=== PATIENT | male | born 1970 | race Caucasian/White ===

== ENCOUNTER 2018-09-07 09:19 | Emergency (ER) | payer BC ==
--- NOTE | 2018-09-07 11:34 | ULT ---
TESTICULAR ULTRASOUND WITH DOPPLER: HISTORY: Right testicular pain one day after climbing over a fence. Hematuria. COMPARISON: None. TECHNIQUE: Oliveira-scale, color-flow, and Doppler imaging with spectral wave-form analysis was performed of the lef t and right hemiscrotum. FINDINGS: RIGHT HEMISCROTUM: The right testicle has a homogeneous echotexture. No intratesticular masses. Th e right testicle measures 3.6 x 4 x 1.9 cm. The right epididymis has a 0.8 cm anechoic focus, compat ible with an epididymal cyst. Overall, the right epididymis measures 1 x 2.5 x 1.3 cm. The right ep ididymis does have a heterogeneous echotexture. There are increased vessels in the right inguinal re gion, which do not significantly change upon Valsalva. There is nonspecific heterogeneity involving the inferior right scrotal wall, with increased vascularity. LEFT HEMISCROTUM: The left testicle has a homogeneous echotexture. No intratesticular mass. The le ft testicle measures 2.2 x 4.2 x 3.3 cm. The left epididymis has a normal echotexture, measuring 1 x 1 x 2.6 cm. TESTICULAR DOPPLER: Vascular flow to both testicles symmetric. IMPRESSION: 1. Symmetric vascular flow to both testicles. 2. Increased vessels in the right inguinal region, which do not have increased flow upon Valsalva. 3. Heterogeneous hypervascular region along the inferior aspect of the right hemiscrotum. Correlate clinically for possible focal soft tissue infection/inflammation. 4. Complex right epididymis with epididymal cyst. POS: JANET
[2018-09-07 12:03] LABS: Bilirubin Negative (Negative); Blood, Urine Large (Negative); Clarity TURBID (Clear); Glucose, Urine (Dipstick) Negative (Negative); Leukocyte Large (Negative); Nitrite Negative (Negative); Protein, Urine (Dipstick) 100 mg/dL (Neg-Trace); Specific Gravity, Urine 1.024 (1.002-1.036)
[2018-09-07 12:17] LABS: Bacteria/HPF None Seen HPF (None Seen); Hyaline Casts/LPF 0-3 HYALINE CAST LPF (0-3 Hyaline); Pathc Cast-AUWi Flag 0.29 (0-2.49); RBC/HPF GREATER THAN 50-TNTC HPF (0-3); Squamous Epithelial None Seen HPF (0-3)
[2018-09-07] MEDS ORDERED: Lidocaine 1% PF 5 ML VIAL ONE (12:39)
[2018-09-07] MEDS ORDERED: cefTRIAXone\\ROCEPHIN 1 GM VIAL ONE (12:39)
[2018-09-07] MEDS ORDERED: Clindamycin 150 MG CAP ONE (12:45)
[2018-09-07] MEDS ORDERED: Clindamycin 150 MG CAP PO SCH (13:00)
== END 2018-09-07 13:00 | disposition home or self-care (01) ==
LOC: ERS 09:19
DX: N49.2 Inflammatory disorders of scrotum (principal); I10 Essential (primary) hypertension; F17.210 Nicotine dependence, cigarettes, uncomplicated
CPT/HCPCS: 76870; 81003; 81015; 93976; 96372; J0696; J2001

== ENCOUNTER 2020-05-16 09:22 | Emergency (ER) | payer BC, SELFPAY | END 2020-05-16 10:26 | disposition home or self-care (01) | LOC: ERS 09:22 | DX: L02.612 Cutaneous abscess of left foot (principal); L03.032 Cellulitis of left toe; B35.3 Tinea pedis; I10 Essential (primary) hypertension; F17.210 Nicotine dependence, cigarettes, uncomplicated | CPT/HCPCS: 99283 ==

== ENCOUNTER 2020-05-29 11:34 | Inpatient (IN) | payer OTHER, SELFPAY ==
--- NOTE | 2020-05-29 12:14 | RAD ---
XR Foot Lt 3 View STANDARD HISTORY: Infection of the left fifth toe. Patient is currently on the second round of antibiotics wit hout improvement FINDINGS: No fracture, dislocation, bony destruction or periosteal reaction is identified. There is a posterior calcaneal spur. If there is concern for osteomyelitis, further evaluation with MRI should be performed.
[2020-05-29 12:20] LABS: #Basophils 0.1 thou/uL (0.0-0.2); #Eosinphils 0.1 thou/uL (0.0-0.7); #Lymphocytes 1.4 thou/uL (1.20-3.40); #Monocytes 0.5 thou/uL (0.11-0.59); #Neutrophils 3.3 thou/uL (1.40-6.50); %Basophils 1.1 % (0.0-1.0); %Eosinophils 1.5 % (0.0-10.0); %Lymphocytes 26.4 % (21.0-51.0); %Monocytes 8.5 % (0.0-10.0); %Neutrophils 62.5 % (42.0-75.0); Hemoglobin 19.1 g/dL (14.0-18.0); Mean Corpuscular HGB CONC 33.5 g/dL (32.0-36.0); Mean Corpuscular Hemoglobin 34.2 pg (27.0-31.0); Mean Platelet Volume 6.7 fL (7.4-10.4); Platelet Count 188 thou/uL (130-400); RBC Distribution Width 12.5 % (11.5-14.5); Red Blood Cell (RBC) Count 5.58 mill/uL (4.70-6.10); White Blood Cell (WBC) Count 5.3 thou/uL (4.8-10.8)
[2020-05-29 12:40] LABS: ALT (SGPT) 13 U/L (8-55); AST (SGOT) 21 U/L (5-34); Albumin 4.3 g/dL (3.5-5.0); Alkaline Phosphatase 79 U/L (40-110); Anion Gap 11 mmol/L (10-20); BUN (Urea Nitrogen) 7 mg/dL (8.4-25.7); Bilirubin, Total 0.6 mg/dL (0.2-1.2); Calc. Creatinine Clearance 0 mL/min (70-130); Calcium 9.3 mg/dL (7.8-10.44); Carbon Dioxide 29 mmol/L (22-29); Chloride 100 mmol/L (98-107); Estimated GFR-MDRD Greater than 90; Globulin 3.3 g/dL (2.4-3.5); Glucose 91 mg/dL (70-105); Potassium 4.2 mmol/L (3.5-5.1); Protein, Total 7.6 g/dL (6.0-8.3); Sodium 136 mmol/L (136-145)
[2020-05-29] MEDS ORDERED: Cefepime 2 GM VIAL ONE (15:13)
[2020-05-29] MEDS ORDERED: Cefepime 2 GM in Sodium Chloride 0.9% 100 ML IVPB SCH (15:30)
[2020-05-29] MEDS ORDERED: Vancomycin HCl 1.25 GM in Sodium Chloride 0.9% 250 ML 250 ML IVPB SCH (16:00)
--- NOTE | 2020-05-29 18:15 | PDOC.HHP ---
Hospitalist HPI - History of Present Illness Left toe pain and swelling History of Present Illness: Mr. Bejarano is a 50-year-old male with a past medical history of hypertension, vitamin D deficiency, spastic muscle disorder of unknown origin who presents to the ED for left toe swelling and pain. Patient reports that approximately 1 month ago he noticed redness and swelling to his left fifth toe and presented to the emergency room. At that time I&D was performed and patient was discharged on Keflex. Patient's toe pain worsened and he presented to his PCP who added clindamycin. Patient has been taking clindamycin for the past week with a worsening of his toe infection. He denies fever, night sweats, chills. No history of diabetes. Denies history of peripheral vascular disease but does report history of bilateral foot drop and muscle spasms with neuropathy to his bilateral lower extremities. Patient has been evaluated by neurology for this chronic problem which is been ongoing for the past 10 years. Patient unsure of the etiology of his muscle disorder. Patient does endorse smoking 1 pack/day. Denies any change in his numbness or paresthesias to his bilateral lower extremities. Denies chest pain, shortness of breath, palpitations. In the emergency room initial vital signs 155/7585, 18, 98.3, 98% on room air. WBC 5.3, H/H 19.1/56.9. BUN/CR 7/0.73 x-ray of the foot showed no fracture, dislocation bony destruction or periosteal reaction. In the ED patient started on IV clindamycin, vancomycin, cefepime. Hospitalist ROS - Review of Systems Constitutional: denies: fever, chills, sweats, weakness, malaise, other Eyes: denies: pain, vision change, conjunctivae inflammation, eyelid inflammation, redness, other ENT: denies: ear pain, ear discharge, nose pain, nose discharge, nose congestion, mouth pain, mouth swelling, throat pain, throat swelling, other Respiratory: denies: cough, dry, shortness of breath, hemoptysis, SOB with excertion, pleuritic pain, sputum, wheezing, other Cardiovascular: denies: chest pain, palpitations, orthopnea, paroxysmal noc. dyspnea, edema, light headedness, other Gastrointestinal: denies: nausea, vomiting, abdominal pain, diarrhea, constipation, melena, hematochezia, other Genitourinary: denies: dysuria, frequency, incontinence, hematuria, retention, other Musculoskeletal: reports: foot pain. denies: neck pain, shoulder pain, arm pain, back pain, hand pain, leg pain, other Skin: reports: rash (Redness and erythema to left fifth toe) Neurological: reports: weakness, incoordination Other: History of muscle spasms and bilateral foot drop. Baseline neuropathy. - Medication Medications: Home medications include Losartan Vitamin D Hospitalist History - Past Medical History Other Medical History: Medical history for spastic muscle disorder, hypertension, tobacco abuse disorder, alcohol use disorder, vitamin D deficiency. - Past Surgical History Other Surgical History: No surgical history - Family History Other Family History: Denies family history of cancer, cardiac disease, diabetes. - Social History Smoking Status: Current every day smoker Tobacco Type: cigarettes Alcohol: reports: Heavy Drugs: reports: none Living Situation: With Family Activity level: independent ambulation - Exam General Appearance: NAD, awake alert Eye: PERRL, anicteric sclera ENT: normocephalic atraumatic, no oropharyngeal lesions, moist mucosa Neck: supple, symmetric, no JVD, no thyromegaly, no lymphadenopathy, no carotid bruit Heart: RRR, no murmur, no gallops, no rubs, normal peripheral pulses Respiratory: CTAB, no wheezes, no rales, no ronchi, normal chest expansion, no tachypnea, normal percussion Gastrointestinal: soft, non-tender, non-distended, normal bowel sounds, no palpable masses, no hepatomegaly, no splenomegaly, no bruit Neurological: cranial nerve grossly intact, normal sensation to touch, no new deficit Neurological - other findings: Chronic bilateral foot drop, muscle fasciculations bilaterally to lower ext Musculoskeletal - other findings: Atrophy of the bilateral lower extremity muscles Psychiatric: normal affect, normal behavior, A&O x 3 Hospitalist Results - Labs Result Diagrams: 05/30/20 06:15 05/30/20 06:15 Lab results: WBC 5.3 thou/uL (4.8-10.8) 05/29/20 12:09 Hgb 19.1 g/dL (14.0-18.0) H 05/29/20 12:09 Hct 56.9 % (42.0-52.0) H 05/29/20 12:09 MCV 102.0 fL (78.0-98.0) H 05/29/20 12:09 Plt Count 188 thou/uL (130-400) 05/29/20 12:09 Neutrophils % 62.5 % (42.0-75.0) 05/29/20 12:09 Sodium 136 mmol/L (136-145) 05/29/20 12:09 Potassium 4.2 mmol/L (3.5-5.1) 05/29/20 12:09 Chloride 100 mmol/L (98-107) 05/29/20 12:09 Carbon Dioxide 29 mmol/L (22-29) 05/29/20 12:09 BUN 7 mg/dL (8.4-25.7) L 05/29/20 12:09 Creatinine 0.73 mg/dL (0.7-1.3) 05/29/20 12:09 Glucose 91 mg/dL (70-105) 05/29/20 12:09 Calcium 9.3 mg/dL (7.8-10.44) 05/29/20 12:09 Total Bilirubin 0.6 mg/dL (0.2-1.2) 05/29/20 12:09 AST 21 U/L (5-34) 05/29/20 12:09 ALT 13 U/L (8-55) 05/29/20 12:09 Alkaline Phosphatase 79 U/L (40-110) 05/29/20 12:09 Serum Total Protein 7.6 g/dL (6.0-8.3) 05/29/20 12:09 Albumin 4.3 g/dL (3.5-5.0) 05/29/20 12:09 Hospitalist H&P A/P - Plan Plan: Mr. Bejarano is a 50-year-old male with history of spastic muscle disorder, hypertension, tobacco use disorder, alcohol use disorder who presents with left toe cellulitis which has failed outpatient antibiotic therapy. #Cellulitis Left toe cellulitis with worsening maceration between the fourth and fifth toe. WBC 5.3, afebrile. Patient does not meet sirs criteria. X-ray showed no signs of osteomyelitis. Patient denies any trauma to the area, but does have history of spastic muscle disorder likely contributing. Patient unsure of any peripheral vascular disease, minimally palpable pulses to bilateral extremities so we will obtain ABIs. -Continue IV vancomycin, cefepime, clindamycin -Blood cultures -Podiatry consult -PATRICIA #Hypertension Continue home losartan #Tobacco use disorder Tobacco cessation counseling, nicotine patch. #Alcohol use disorder Patient reports drinking 16-18 beers per day. No history of seizures or wi thdrawal symptoms. Last drink was yesterday. Will start patient on ASE protocol. -Magnesium, thiamine, vitamin B12 -ASE protocol DVT prophylaxis: Lovenox Full code
[2020-05-29] MEDS ORDERED: Ondansetron ODT 4 MG TAB PO PRN (19:21)
[2020-05-29] MEDS ORDERED: Acetaminophen 325 MG TAB PO PRN (19:21)
[2020-05-29 20:18] LABS: Syphilis Antibody Nonreactive (Nonreactive); Syphilis Antibody Index 0.04 S/CO (<1.00 Non-Reactive)
[2020-05-29] MEDS ORDERED: Morphine 2 MG/ML VIAL SLOW IVP SCH (21:15)
[2020-05-29] MEDS ORDERED: Ketorolac Tromethamine 30 MG/ML VIAL IVP SCH (21:30)
[2020-05-29] MEDS: Nicotine 14 MG PATCH TD SCH (21:32)
[2020-05-30 06:54] LABS: #Basophils 0.1 thou/uL (0.0-0.2); #Eosinphils 0.1 thou/uL (0.0-0.7); #Lymphocytes 1.2 thou/uL (1.20-3.40); #Monocytes 0.6 thou/uL (0.11-0.59); #Neutrophils 3.1 thou/uL (1.40-6.50); %Eosinophils 2.8 % (0.0-10.0); %Lymphocytes 24.4 % (21.0-51.0); %Monocytes 11.6 % (0.0-10.0); %Neutrophils 60.2 % (42.0-75.0); Mean Corpuscular HGB CONC 33.1 g/dL (32.0-36.0); Mean Corpuscular Hemoglobin 33.8 pg (27.0-31.0); Mean Platelet Volume 6.7 fL (7.4-10.4); Platelet Count 148 thou/uL (130-400); RBC Distribution Width 12.6 % (11.5-14.5); Red Blood Cell (RBC) Count 5.02 mill/uL (4.70-6.10); White Blood Cell (WBC) Count 5.1 thou/uL (4.8-10.8)
[2020-05-30 07:00] LABS: Hemoglobin A1c 5.1 % (4.0-6.0)
[2020-05-30 07:12] LABS: Anion Gap 8 mmol/L (10-20); BUN (Urea Nitrogen) 13 mg/dL (8.4-25.7); Calc. Creatinine Clearance 119 mL/min (70-130); Carbon Dioxide 30 mmol/L (22-29); Chloride 101 mmol/L (98-107); Estimated GFR-MDRD Greater than 90; Glucose 104 mg/dL (70-105); Potassium 3.9 mmol/L (3.5-5.1); Sodium 135 mmol/L (136-145)
[2020-05-30] MEDS ORDERED: Morphine 2 MG/ML VIAL SLOW IVP SCH (08:30)
[2020-05-30] MEDS ORDERED: Gabapentin 100 MG CAP PO SCH (09:00)
[2020-05-30] MEDS: Losartan 25 MG TAB PO SCH (09:06)
[2020-05-30] MEDS: Enoxaparin Sodium 40 MG/0.4 ML SYRINGE SC SCH (09:07)
--- NOTE | 2020-05-30 09:48 | PDOC.HOSPP ---
- Subjective Encounter Date: 05/30/20 Encounter Time: 09:42 Subjective: Patient reports severe pain overnight. Endorses muscle cramping/shooting pain to his left toe. Denies fever, night sweats, chills. Denies shortness of breath, chest pain, abdominal pain. Chart and medications reviewed. - Objective Vital Signs & Weight: Vital Signs (12 hours) Temp Pulse Resp BP BP Pulse Ox 05/30/20 08:03 97.5 F L 63 18 168/82 H 98 05/30/20 08:00 97.5 F L 63 18 168/82 H 98 05/30/20 07:00 97.5 F L 63 18 168/82 H 98 05/30/20 04:00 97.7 F 73 20 159/91 H 98 05/30/20 00:07 97.8 F 61 20 165/83 H 99 Weight Weight 146 lb 11.2 oz I&O: 05/29/20 05/30/20 05/31/20 06:59 06:59 06:59 Intake Total 700 Balance 700 Result Diagrams: 05/30/20 06:15 05/30/20 06:15 Hospitalist ROS - Review of Systems Constitutional: denies: fever, chills, sweats, weakness, malaise, other Eyes: denies: vision change Respiratory: denies: cough, shortness of breath Cardiovascular: denies: chest pain, palpitations, orthopnea, light headedness Gastrointestinal: denies: nausea, vomiting, abdominal pain, diarrhea, constipation, melena, hematochezia, other Musculoskeletal: reports: foot pain Skin: reports: rash Neurological: denies: weakness, numbness, incoordination, change in speech, confusion, seizures, other - Medication Medications: Active Medications Generic Name Dose Route Start Last Admin Trade Name Freq PRN Reason Stop Dose Admin Enoxaparin Sodium 40 mg 05/30/20 09:00 05/30/20 09:07 Enoxaparin Sodium 40 Mg/0.4 Ml Syringe SC 40 mg 0900 PRATEEK Administration Gabapentin 100 mg 05/30/20 09:00 05/30/20 09:06 Gabapentin 100 Mg Cap PO 100 mg DAILY PRATEEK Administration Losartan Potassium 100 mg 05/30/20 09:00 05/30/20 09:06 Losartan 25 Mg Tab PO 100 mg DAILY PRATEEK Administration Morphine Sulfate 2 mg 05/30/20 08:30 05/30/20 09:04 Morphine 2 Mg/Ml Vial SLOW IVP 05/30/20 11:00 2 mg NOW PRATEEK Administration Nicotine 14 mg 05/29/20 21:00 05/29/20 21:32 Nicotine 14 Mg Patch TD 14 mg 2100 PRATEEK Administration - Exam General Appearance: NAD, awake alert Eye: anicteric sclera ENT: normocephalic atraumatic, no oropharyngeal lesions, moist mucosa Neck: supple, symmetric, no JVD, no thyromegaly, no lymphadenopathy, no carotid bruit Heart: RRR, no murmur, no gallops, no rubs, normal peripheral pulses Respiratory: CTAB, no wheezes, no rales, no ronchi, normal chest expansion, no tachypnea, normal percussion Gastrointestinal: soft, non-tender, non-distended, normal bowel sounds, no palpable masses, no hepatomegaly, no splenomegaly, no bruit Extremities - other findings: Left toe with erythema, edema, and induration Skin - other findings: Left toe wound between fifth and fourth digits Neurological: no new deficit Musculoskeletal - other findings: Baseline lower extremity muscle atrophy Psychiatric: normal affect, normal behavior, A&O x 3 Hosp A/P - Plan Mr. Bejarano is a 50-year-old male with history of spastic muscle disorder, hypertension, tobacco use disorder, alcohol use disorder who presents with left toe cellulitis which has failed outpatient antibiotic therapy. #Cellulitis Left toe cellulitis with worsening maceration between the fourth and fifth toe. WBC 5.3, afebrile. Patient does not meet sirs criteria. X-ray showed no signs of osteomyelitis. Patient denies any trauma to the area, but does have history of spastic muscle disorder likely contributing. Patient unsure of any peripheral vascular disease, minimally palpable pulses to bilateral extremities so we will obtain ABIs. This morning cellulitis improving. Hg A1c 5.1. Since no signs of osteomyelitis and pt is not a diabetic, will deescalate abx to vancomycin only. -Continue IV vancomycin -Blood cultures pending -Podiatry consult -ABIs #Pedal ulcer Shallow, macerated ulcer in between fourth and fifth digits of the left toe. This a.m. weeping minimally. Will place gauze in between toes and obtain wound care consult. Continue antibiotics as above Wound care consult ABIs pending #Neuropathy Patient with baseline neuromuscular disorder of unknown etiology. Patient reports severe shooting pain to left toe associated with muscle cramping. Will start patient on gabapentin for pain control. Start gabapentin 300 mg twice daily #Hypertension Continue home losartan #Tobacco use disorder Tobacco cessation counseling, nicotine patch. #Alcohol use disorder Patient reports drinking 16-18 beers per day. No history of seizures or withdrawal symptoms. Last drink was yesterday. Continue ASE protocol. -Magnesium, thiamine, vitamin B12 -ASE protocol DVT prophylaxis: Lovenox Full code
[2020-05-30] MEDS ORDERED: Clindamycin/D5W 900 MG in Premix Bag 1 BAG IVPB SCH (14:00)
[2020-05-30] MEDS: Vancomycin 1 GM in Premix Bag 1 BAG IVPB SCH ×2 (15:36→22:04)
[2020-05-30] MEDS: Gabapentin 100 MG CAP PO SCH (22:04)
[2020-05-30] MEDS: Nicotine 14 MG PATCH TD SCH (22:04)
[2020-05-30] MEDS: Acetaminophen/Codeine 30-300mg Tablet PO PRN (22:10)
[2020-05-31 03:39] VITALS: BMI 19.5
[2020-05-31] MEDS: Acetaminophen/Codeine 30-300mg Tablet PO PRN ×3 (05:12→17:39)
[2020-05-31] MEDS: Vancomycin 1 GM in Premix Bag 1 BAG IVPB SCH ×3 (05:14→21:26)
--- NOTE | 2020-05-31 05:26 | CON ---
DATE OF CONSULTATION: 05/31/2020 HISTORY OF PRESENT ILLNESS: The patient is seen today in his room for painful wound to 5th digit, left foot. No apparent distress, resting well. Vital signs stable. The patient's main complaint today is an open wound that he says flared up on him in late April of this year due to possible ill-fitted shoes and tight shoe wear and hammertoe deformity. Eventually it got infected. He went to the [facility] ER on May 16, was diagnosed with cellulitis, had an incision and drainage performed to his 5th toe, left foot in the ER and placed on oral antibiotics. Further followup visits with his primary care physician on May 22 consisted of continuous rounds of oral antibiotics with on and off symptoms on the 5th digit. The patient states that several days ago the pain became intolerable and eventually he was admitted on May 29, two days ago to [facility]. PAST MEDICAL HISTORY: Significant for hypertension and peripheral neuropathy. PAST SURGICAL HISTORY: Unremarkable. SOCIAL HISTORY: Positive recreational marijuana use. Positive alcohol use. Positive tobacco use. FAMILY HISTORY: Unremarkable for diabetes. MEDICATIONS: Currently noted in chart to include: 1. IV vancomycin. 2. Oral clindamycin. ALLERGIES: NO DRUG ALLERGIES. REVIEW OF SYSTEMS: Noted in chart. PHYSICAL EXAMINATION: Lower Extremity Physical Examination: Vascular status, the patient currently has 1/4 dorsalis pedis and posterior tibial pulses bilateral feet. Capillary refill time is 3 seconds to digits one through five both feet. The 5th digit left foot shows rubor with early signs of cyanosis and purple discoloration. Positive significant pain on palpation. Rubor on dependency and pallor on elevation with absent hair growth noted bilateral lower extremities. Neurologically, epicritic sensation is intact. Paresthesia with mild burning pains exhibited on the left lower extremity distal forefoot area. MUSCULOSKELETAL: Reveals good range of motion, 5/5 muscle grading to bilateral lower extremities. The 5th digit, left foot shows signs of guarding on range of motion. Pain on palpation overall to the 5th digit, left foot. DERMATOLOGIC: An open wound approximately 0.75 cm x 1 cm in size on the medial aspect of the PIPJ, 5th digit, left foot is noted. It has a dry granular base. No azeem-marginal callus formation. No undermining. No tracking to deep bone. No purulent drainage. Surrounding tissues 5th digit left foot is erythemic, cyanotic, purple discoloration, possible mild cellulitis, edemic in nature. ASSESSMENT AND PLAN: Ulcer 5th digit, left foot. X-rays taken on the 29 of May while admitted are unremarkable at this time for any signs of osteomyelitis; however, there is concern at this time for possible underlying osteomyelitis. I went ahead and ordered an MRI with and without contrast to rule out osteomyelitis, 5th digit, left foot. The patient is currently on IV vancomycin, oral clindamycin, and has had a cefepime injection 2 g on the 29 of May. The patient currently maintains the soap and warm water. Rejects any type of wound care at this time per hospital staff. My concerns are more orientated towards his vascular status on the left foot, distal forefoot area. ABIs, arterial ultrasound ordered on the 30 of May show a low index at the ankle level and digit level on the left versus the right concerns for possible vascular underlying disease. With clinical examination at this time, I recommend a vascular consultation for further possible workup on the left lower extremity while in-house. The patient and I discussed possible MRI results including his positive osteomyelitis, a 5th digit amputation, left foot is indicated. I will follow up with the patient to discuss MRI results. If you have any questions, please call me at [phone]. Job ID: [id number]
[2020-05-31] MEDS ORDERED: Sodium Chloride 0.9% 1,000 ML IV SCH ×2 (07:30)
--- NOTE | 2020-05-31 08:01 | CON ---
DATE OF CONSULTATION: HISTORY OF PRESENT ILLNESS: This is a 50-year-old gentleman with a little over 2-week history of a rather sudden onset of pain in his left 5th toe. He has a history of chronic foot drop, which is hereditary, but he awakened one morning with pain in his toe and this has persisted. He was seen by Podiatry yesterday. His cardiovascular risk factors include a longstanding smoking history as well as hypertension. HOME MEDICATIONS: Include: 1. Losartan. 2. Vitamin D. SOCIAL HISTORY: He lives with his family. He uses some marijuana. He drinks regularly. PHYSICAL EXAMINATION: GENERAL: He is a thin gentleman, in no apparent distress. Talking on the phone. LUNGS: Clear to auscultation. CARDIAC: Regular rate and rhythm. ABDOMEN: Scaphoid, nontender. EXTREMITIES: He has palpable femoral pulses bilaterally as well as a right posterior tibial and right popliteal. He has no left popliteal or pedal pulses. He has 5th toe rides over the top of the 4th toe and there are some gangrenous changes on the medial aspect of his 5th toe. There is not much discoloration in the toe otherwise to suggest an embolic event. The patient states the pain is worse when he is in bed and less so when he is up suggesting vascular insufficiency. Whether this is an embolic event or not is unclear, but we will go ahead and plan on a CT angiogram today and possible angios with intervention. We will start some IV fluids for hydration. His creatinine is normal as hemoglobin is elevated, it is 17. Platelet count is 148. I have gone over the situation with the patient and he is agreeable to proceed with angiography and interventions as needed. Job ID: [id number]
[2020-05-31] MEDS: Gabapentin 100 MG CAP PO SCH ×2 (08:36→21:26)
[2020-05-31] MEDS: Aspirin 81 mg Enteric Coated Tablet PO SCH (08:36)
[2020-05-31] MEDS: Diazepam 5 MG TAB PO SCH ×2 (08:36→21:26)
[2020-05-31] MEDS ORDERED: Morphine 2 MG/ML VIAL SLOW IVP PRN (08:41)
[2020-05-31] MEDS ORDERED: Clopidogrel Bisulfate 75 MG TAB PO SCH (09:00)
[2020-05-31] MEDS: Losartan 25 MG TAB PO SCH (10:15)
[2020-05-31] MEDS: Enoxaparin Sodium 40 MG/0.4 ML SYRINGE SC SCH (10:15)
--- NOTE | 2020-05-31 10:27 | CT ---
CTA ABDOMEN AND PELVIS AND BILATERAL LOWER EXTREMITIES FOLLOWING A RUNOFF PROTOCOL: Multiplanar reconstruction and 3D post processing obtained. INDICATION: Left foot ischemia. FINDINGS: The abdominal aorta shows atherosclerotic change with peripheral calcification and a mild amount of p eripheral soft plaque. Mild ectasia without aneurysm. Distal abdominal aorta diameter is measured a t 1.9 cm. There is no stenosis seen at the origin of the celiac artery or superior mesenteric artery. Both renal arteries are well seen and there is no evidence of renal artery stenosis. Aortic bifurcation is patent. Both common iliac arteries are patent without significant atherosclero tic disease. LEFT LOWER EXTREMITY: Left internal and external iliacs are patent and unremarkable. The left common femoral shows mild at herosclerotic change, but no stenosis. Profunda femoral is patent. There is occlusion of the proximal left superficial femoral artery just beyond its origin. A collate ral vessel arises at this location. The left superficial femoral artery reconstitutes distally near Lavon's canal via collaterals. The left popliteal is patent without significant stenosis. The left popliteal trifurcates below the knee and there is 3-vessel runoff seen to the left ankle. RIGHT LOWER EXTREMITY: The right internal and external iliacs are patent and unremarkable. The right common femoral is goodman nt and unremarkable with mild atherosclerotic disease. The profunda femoral is patent. The right superficial femoral artery is patent throughout its course without significant disease. Th e right popliteal is patent and unremarkable. Right popliteal trifurcates below the knee. The perin eal artery and the anterior tibial artery on the right are not visualized at the ankle and may occlud e distally. The percutaneous transluminal angioplasty on the right is identified to the ankle. SOFT TISSUES: Visualized liver, spleen, pancreas, adrenal glands, and kidneys unremarkable. Bowel loops unremarkab le. Osseous structures show degenerative changes in the spine. There is fusion at T12-L1 vertebrae which may be congenital. 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 This artery reconstitutes i n the distal left thigh near Lavon's canal as described above. In the right lower extremity, the perineal artery, and anterior tibial artery are not visualized to t he distal calf are not seen at the ankle and may occlude distally, although poor visualization may be due to over-running contrast on the CT. Catheter angiogram would be necessary to assess these small peripheral vessels. POS: AH
--- NOTE | 2020-05-31 10:41 | MRI ---
MRI LEFT FOREFOOT: DATE: . PROVIDED CLINICAL HISTORY: Infection of left 5th toe. FINDINGS: Correlation is made with radiographs dated 05/29/2020. There is signal alteration on fluid sensitive sequences involving the 5th digit proximal and distal p halanges. There is no significant T1 signal alteration. There is associated contrast enhancement. Regional marrow signal appears otherwise unremarkable. There is no evidence for a focal fluid collec tion to suggest abscess. Regional muscular signal appears unremarkable. Alignment appears anatomic. Joint spaces appear pres erved. No regional joint effusion is evident. The dorsal extensor and plantar flexor tendons appear intact as visualized. There is no significant regional tenosynovial fluid. IMPRESSION: Signal alteration involving the 5th digit, which could reflect reactive osteitis or early osteomyelit is. POS: EMILY
[2020-05-31 12:45] LABS: SARS-CoV-2 MS2 Positive; SARS-CoV-2 N Gene Negative; SARS-CoV-2 S Gene Negative; SARS-CoV-2 by NAA Not Detected (NotDetected); SARS-CoV-2 orf1ab Negative
--- NOTE | 2020-05-31 12:48 | PDOC.HOSPP ---
- Subjective Encounter Date: 05/31/20 Encounter Time: 08:00 Subjective: No overnight events. Patient endorses pain to the left fifth digit. Denies chest pain, shortness of breath, abdominal pain. Denies numbness or paresthesias to bilateral lower extremities. Treat medications reviewed. - Objective Vital Signs & Weight: Vital Signs (12 hours) Temp Pulse Resp BP Pulse Ox 05/31/20 11:42 98.1 F 67 16 147/78 H 98 05/31/20 08:00 97.9 F 97 90 H 137/75 100 Weight Weight 147 lb I&O: 05/30/20 05/31/20 06/01/20 06:59 06:59 06:59 Intake Total 700 1400 Balance 700 1400 Result Diagrams: 05/30/20 06:15 05/30/20 06:15 Hospitalist ROS - Review of Systems Constitutional: denies: fever, chills, sweats, weakness, malaise, other Eyes: denies: vision change Respiratory: denies: cough, dry, shortness of breath Cardiovascular: denies: chest pain, palpitations, light headedness Gastrointestinal: denies: nausea, vomiting, abdominal pain Genitourinary: denies: dysuria Skin: reports: rash Neurological: denies: weakness, numbness - Medication Medications: Active Medications Generic Name Dose Route Start Last Admin Trade Name Freq PRN Reason Stop Dose Admin Acetaminophen/Codeine Phosphate 1 tab 05/29/20 21:07 05/31/20 05:12 Acetaminophen/Codeine 30-300mg Tablet PO 1 tab Q4HR PRN Administration Severe Pain (7-10) Aspirin 81 mg 05/31/20 09:00 05/31/20 08:36 Aspirin 81 Mg Enteric Coated Tablet PO 81 mg DAILY PRATEEK Administration Clopidogrel Bisulfate 75 mg 05/31/20 09:00 05/31/20 10:15 Clopidogrel Bisulfate 75 Mg Tab PO Not Given DAILY PRATEEK Diazepam 5 mg 05/31/20 09:00 05/31/20 08:36 Diazepam 5 Mg Tab PO 5 mg BID PRATEEK Administration Enoxaparin Sodium 40 mg 05/30/20 09:00 05/31/20 10:15 Enoxaparin Sodium 40 Mg/0.4 Ml Syringe SC Not Given 0900 PRATEEK Gabapentin 100 mg 05/30/20 21:00 05/31/20 08:36 Gabapentin 100 Mg Cap PO 100 mg BID PRATEEK Administration Vancomycin HCl 1 gm/ Device 200 mls @ 200 mls/hr 05/30/20 13:00 05/31/20 05:14 IVPB 200 mls 0500,1300,2100 PRATEEK Administration Sodium Chloride 1,000 mls @ 150 mls/hr 05/31/20 07:30 05/31/20 10:14 Normal Saline 0.9% IV 1,000 mls .Q6H40M PRATEEK Administration Losartan Potassium 100 mg 05/30/20 09:00 05/31/20 10:15 Losartan 25 Mg Tab PO 100 mg DAILY PRATEEK Administration Nicotine 14 mg 05/29/20 21:00 05/30/20 22:04 Nicotine 14 Mg Patch TD 14 mg 2100 PRATEEK Administration - Exam General Appearance: NAD, awake alert Eye: anicteric sclera ENT: normocephalic atraumatic, no oropharyngeal lesions Neck: supple, symmetric, no JVD, no thyromegaly, no lymphadenopathy, no carotid bruit Heart: RRR, no murmur, no gallops, no rubs, normal peripheral pulses Respiratory: CTAB, no wheezes, no rales, no ronchi, normal chest expansion, no tachypnea, normal percussion Gastrointestinal: soft, non-tender, non-distended, normal bowel sounds, no palpable masses, no hepatomegaly, no splenomegaly, no bruit Skin - other findings: Erythema and edema to left fifth digit Neurological: normal sensation to touch, no weakness, no focal deficits, no new deficit Musculoskeletal - other findings: Bilateral lower extremity muscle atrophy she is Psychiatric: normal affect, normal behavior, A&O x 3 Hosp A/P - Plan Mr. Bejarano is a 50-year-old male with history of spastic muscle disorder, hypertension, tobacco use disorder, alcohol use disorder who presents with left toe cellulitis which has failed outpatient antibiotic therapy. #Cellulitis Left toe cellulitis with worsening maceration between the fourth and fifth toe. WBC 5.3, afebrile. Patient does not meet sirs criteria. X-ray showed no signs of osteomyelitis. Patient denies any trauma to the area, but does have history of spastic muscle disorder likely contributing. Patient unsure of any peripheral vascular disease, minimally palpable pulses to bilateral extremities so we will obtain ABIs. This morning cellulitis improving. Hg A1c 5.1. Continued on vancomycin IV. Podiatry recommended pursuing MRI of the left foot to rule out osteomyelitis. -Continue IV vancomycin -Blood cultures no growth to date -Podiatry consult, recs appreciated #Peripheral vascular disease ABIs show decreased blood flow to the left lower extremity. Vascular surgery consulted who recommended CTA and possible angiogram. CTA Vascular surgery following, recommendations appreciated Start aspirin, Plavix #Pedal ulcer Shallow, macerated ulcer in between fourth and fifth digits of the left toe. This a.m. weeping minimally. Will place gauze in between toes and obtain wound care consult. Continue antibiotics as above Patient refusing wound care PVD treatment as above #Neuropathy Patient with baseline neuromuscular disorder of unknown etiology. Patient reports severe shooting pain to left toe associated with muscle cramping. Will start patient on gabapentin for pain control. Start gabapentin 300 mg twice daily -Start tizanidine Neurology consult #Hypertension Continue home losartan #Tobacco use disorder Tobacco cessation counseling, nicotine patch. #Alcohol use disorder Patient reports drinking 16-18 beers per day. No history of seizures or withdrawal symptoms. Last drink was day prior to admission, continue ASE protocol. -Magnesium, thiamine, vitamin B12 -ASE protocol DVT prophylaxis: Lovenox Full code
[2020-05-31] MEDS ORDERED: Iopamidol-370 76% 500 ML 1 ML ONE (14:38)
[2020-05-31] MEDS ORDERED: Magnevist 469MG/ML 20 ML VIAL ONE (14:48)
[2020-05-31] MEDS: Nicotine 14 MG PATCH TD SCH (16:17)
[2020-05-31] MEDS: tiZANidine HCl 4 MG TAB PO SCH (21:26)
[2020-06-01] MEDS: Acetaminophen/Codeine 30-300mg Tablet PO PRN ×3 (01:12→12:02)
[2020-06-01] MEDS: Vancomycin 1 GM in Premix Bag 1 BAG IVPB SCH ×3 (05:03→20:05)
[2020-06-01] MEDS: Enoxaparin Sodium 40 MG/0.4 ML SYRINGE SC SCH (07:39)
[2020-06-01] MEDS: tiZANidine HCl 4 MG TAB PO SCH ×2 (07:39→20:04)
[2020-06-01] MEDS: Aspirin 81 mg Enteric Coated Tablet PO SCH (07:40)
[2020-06-01] MEDS: Losartan 25 MG TAB PO SCH (07:41)
[2020-06-01] MEDS: Diazepam 5 MG TAB PO SCH ×2 (07:41→20:04)
[2020-06-01] MEDS: Gabapentin 100 MG CAP PO SCH ×2 (07:41→20:04)
[2020-06-01 08:42] LABS: #Eosinphils 0.2 thou/uL (0.0-0.7); #Lymphocytes 1.3 thou/uL (1.20-3.40); #Monocytes 0.4 thou/uL (0.11-0.59); #Neutrophils 1.9 thou/uL (1.40-6.50); %Basophils 1.1 % (0.0-1.0); %Eosinophils 4.5 % (0.0-10.0); %Lymphocytes 33.5 % (21.0-51.0); %Monocytes 11.1 % (0.0-10.0); %Neutrophils 49.9 % (42.0-75.0); Hemoglobin 16.4 g/dL (14.0-18.0); Mean Corpuscular HGB CONC 32.8 g/dL (32.0-36.0); Mean Corpuscular Hemoglobin 33.7 pg (27.0-31.0); Mean Platelet Volume 6.4 fL (7.4-10.4); Platelet Count 156 thou/uL (130-400); RBC Distribution Width 12.4 % (11.5-14.5); Red Blood Cell (RBC) Count 4.88 mill/uL (4.70-6.10); White Blood Cell (WBC) Count 3.9 thou/uL (4.8-10.8)
[2020-06-01 09:31] LABS: Anion Gap 10 mmol/L (10-20); BUN (Urea Nitrogen) 9 mg/dL (8.4-25.7); Calc. Creatinine Clearance 125 mL/min (70-130); Calcium 8.7 mg/dL (7.8-10.44); Carbon Dioxide 28 mmol/L (22-29); Chloride 102 mmol/L (98-107); Estimated GFR-MDRD Greater than 90; Glucose 95 mg/dL (70-105); Sodium 136 mmol/L (136-145)
[2020-06-01] MEDS ORDERED: Glycopyrrolate 0.2 MG/ML 5 ML SYRINGE ONE (11:55)
[2020-06-01] MEDS ORDERED: PHENYLEPHRINE-NS 100 MCG/ML 10 ML SYRINGE ONE (11:55)
[2020-06-01] MEDS ORDERED: Rocuronium Bromide 10 MG/ML (10ML VIAL) ONE (11:55)
[2020-06-01] MEDS ORDERED: Lidocaine 1% PF 5 ML VIAL ONE (11:55)
[2020-06-01] MEDS ORDERED: PROPOFOL 200 MG/20 ML VIAL ONE (11:55)
[2020-06-01] MEDS ORDERED: Dexamethasone 20 MG/5 ML VIAL ONE (11:55)
[2020-06-01] MEDS ORDERED: EPHEDRINE 25 MG/5 ML SYRINGE ONE (11:55)
--- NOTE | 2020-06-01 11:55 | PDOC.HOSPP ---
- Subjective Encounter Date: 06/01/20 Encounter Time: 09:00 Subjective: No overnight events. Patient reports the tizanidine has helped significantly with his muscle spasms. Still endorses pain to the left toe. Denies numbness, worsening paresthesias, worsening weakness to the left leg. Denies chest pain, shortness of breath, palpitations. Denies fever night sweats chills. Chart and medications reviewed. - Objective Vital Signs & Weight: Vital Signs (12 hours) Temp Pulse Resp BP Pulse Ox 06/01/20 08:00 98 06/01/20 07:49 98.0 F 57 L 16 133/76 98 06/01/20 04:27 98 Weight Weight 147 lb I&O: 05/31/20 06/01/20 06/02/20 06:59 06:59 06:59 Intake Total 1400 2550 Balance 1400 2550 Result Diagrams: 06/01/20 08:24 06/01/20 08:24 Hospitalist ROS - Review of Systems Constitutional: denies: fever, chills, sweats, weakness, malaise, other Eyes: denies: vision change ENT: denies: throat pain, throat swelling Respiratory: denies: cough, shortness of breath Cardiovascular: denies: chest pain, palpitations Gastrointestinal: denies: nausea, vomiting, abdominal pain, diarrhea, constipation, melena, hematochezia, other Genitourinary: denies: dysuria Musculoskeletal: reports: foot pain Skin: reports: rash Neurological: denies: weakness, numbness, incoordination, change in speech, confusion, seizures, other - Medication Medications: Active Medications Generic Name Dose Route Start Last Admin Trade Name Thomasq PRN Reason Stop Dose Admin Acetaminophen/Codeine Phosphate 1 tab 05/29/20 21:07 06/01/20 05:05 Acetaminophen/Codeine 30-300mg Tablet PO 1 tab Q4HR PRN Administration Severe Pain (7-10) Aspirin 81 mg 05/31/20 09:00 06/01/20 07:40 Aspirin 81 Mg Enteric Coated Tablet PO 81 mg DAILY PRATEEK Administration Diazepam 5 mg 05/31/20 09:00 06/01/20 07:41 Diazepam 5 Mg Tab PO 5 mg BID PRATEEK Administration Enoxaparin Sodium 40 mg 05/30/20 09:00 06/01/20 07:39 Enoxaparin Sodium 40 Mg/0.4 Ml Syringe SC 40 mg 0900 PRATEEK Administration Gabapentin 100 mg 05/30/20 21:00 06/01/20 07:41 Gabapentin 100 Mg Cap PO 100 mg BID PRATEEK Administration Vancomycin HCl 1 gm/ Device 200 mls @ 200 mls/hr 05/30/20 13:00 06/01/20 05:03 IVPB 200 mls 0500,1300,2100 PRATEEK Administration Losartan Potassium 100 mg 05/30/20 09:00 06/01/20 07:41 Losartan 25 Mg Tab PO 100 mg DAILY PRATEEK Administration Morphine Sulfate 2 mg 05/31/20 08:41 06/01/20 07:38 Morphine 2 Mg/Ml Vial SLOW IVP 2 mg Q4H PRN Administration Severe Pain (7-10) Nicotine 14 mg 05/29/20 21:00 05/31/20 16:17 Nicotine 14 Mg Patch TD 14 mg 2100 PRATEEK Administration Tizanidine HCl 2 mg 05/31/20 21:00 06/01/20 07:39 Tizanidine Hcl 4 Mg Tab PO 2 mg BID PRATEEK Administration - Exam General Appearance: NAD, awake alert Eye: anicteric sclera ENT: normocephalic atraumatic, no oropharyngeal lesions Neck: supple, symmetric, no JVD, no thyromegaly, no lymphadenopathy, no carotid bruit Heart: RRR, no murmur, no gallops, no rubs, normal peripheral pulses Respiratory: CTAB, no wheezes, no rales, no ronchi, normal chest expansion, no tachypnea, normal percussion Gastrointestinal: soft, non-tender, non-distended, normal bowel sounds, no palpable masses, no hepatomegaly, no splenomegaly, no bruit Extremities - other findings: Improving cellulitis to left lower toe. Skin: normal turgor, no lesions, no rashes Neurological: normal sensation to touch, no focal deficits, no new deficit Musculoskeletal: normal tone Psychiatric: normal affect, normal behavior, A&O x 3 Hosp A/P - Plan Mr. Bejarano is a 50-year-old male with history of spastic muscle disorder, hypertension, tobacco use disorder, alcohol use disorder who presents with left toe cellulitis which has failed outpatient antibiotic therapy. #Osteomyelitis Left toe cellulitis with worsening maceration between the fourth and fifth toe. WBC 5.3, afebrile. Patient does not meet sirs criteria. X-ray showed no signs of osteomyelitis. Patient denies any trauma to the area, but does have history of spastic muscle disorder. ABIs showed decreased blood flow to left lower extremity. CT angiogram showed blockages to left superficial femoral artery. Dr. Clemens of cardiovascular surgery will take patient for angiogram today. MRI of the foot showed signal alteration involving the fifth digit which could reflect reactive osteitis or possibly early osteomyelitis. Podiatry with plans to surgically debride the toe after blood flow is restored. -Continue IV vancomycin -Podiatry following, recs appreciated Angiogram today Vascular surgery following, recs appreciated #Peripheral vascular disease ABIs show decreased blood flow to the left lower extremity. CT aorta with runoff showed occlusion of the left superficial femoral artery just been its origin which reconstitutes in the distal left thigh. Patient going for angiogram this afternoon with Dr. Clemens. -Vascular surgery following Angiogram Start aspirin, Plavix #Pedal ulcer Shallow, macerated ulcer in between fourth and fifth digits of the left toe. T his a.m. weeping minimally. Will place gauze in between toes and obtain wound care consult. Continue antibiotics as above Patient refusing wound care PVD treatment as above -podiatry following #Neuropathy Patient with baseline neuromuscular disorder of unknown etiology. Patient reports severe shooting pain to left toe associated with muscle cramping. Will start patient on gabapentin for pain control. Start gabapentin 300 mg twice daily -Start tizanidine #Hypertension Continue home losartan #Tobacco use disorder Tobacco cessation counseling, nicotine patch. #Alcohol use disorder Patient reports drinking 16-18 beers per day. No history of seizures or withdrawal symptoms. Last drink was day prior to admission, continue ASE protocol. -Magnesium, thiamine, vitamin B12 -ASE protocol DVT prophylaxis: Lovenox Full code
[2020-06-01 12:10] LABS: Vancomycin, Trough 20.9 ug/mL
--- NOTE | 2020-06-01 13:53 | PFT ---
DATE OF SERVICE: STUDY: Lower extremity arterial study on Krishan Bejarano for complaints of pain in the left leg. Examination of the right leg reveals normal Doppler waveforms at all levels with an ankle-arm index of 1.25. Left lower extremity demonstrates a slightly abnormal, but relatively preserved waveform at the left femoral level and then decreased waveforms distally with an ankle-arm index of 0.67. This study would be consistent with left superficial femoral artery stenosis or occlusion, possible tibial disease above that level and would be consistent with a history of claudication. Job ID: [id number]
[2020-06-01] MEDS ORDERED: Phenylephrine 10 MG/ML VIAL ONE (14:10)
[2020-06-01] MEDS ORDERED: Fentanyl 100 MCG/2 ML VIAL ONE ×3 (14:10→17:09)
[2020-06-01] MEDS ORDERED: Protamine Sulfate 50 MG/5 ML VIAL ONE (14:48)
[2020-06-01] MEDS ORDERED: Heparin 5,000 UNITS/ML VIAL ONE (14:48)
[2020-06-01] MEDS ORDERED: Promethazine HCl 25 MG/ML VIAL SLOW IVP PRN (15:21)
[2020-06-01] MEDS ORDERED: Ondansetron HCl/PF 4 MG/2 ML Vial IVP PRN (15:21)
[2020-06-01] MEDS ORDERED: HYDROcodone/Acetaminophen 5/325 mg Tablet ONE (17:32)
[2020-06-01] MEDS: HYDROcodone/Acetaminophen 5/325 mg Tablet PO PRN (17:40)
[2020-06-01] MEDS: CEFAZOLIN 2 GM in Premix Bag 1 BAG IVPB SCH (18:22)
[2020-06-01] MEDS: Nicotine 14 MG PATCH TD SCH (20:05)
[2020-06-01] MEDS: Fentanyl 100 MCG/2 ML VIAL SLOW IVP PRN (20:05)
[2020-06-02] MEDS: HYDROcodone/Acetaminophen 5/325 mg Tablet PO PRN ×4 (00:20→22:30)
[2020-06-02] MEDS: CEFAZOLIN 2 GM in Premix Bag 1 BAG IVPB SCH ×3 (01:39→16:44)
[2020-06-02] MEDS: Acetaminophen/Codeine 30-300mg Tablet PO PRN (03:27)
[2020-06-02] MEDS: Vancomycin 1 GM in Premix Bag 1 BAG IVPB SCH ×3 (05:06→22:31)
--- NOTE | 2020-06-02 06:45 | PRG ---
DATE OF SERVICE: 06/02/2020 The patient states he has not slept since 01:30 this morning, but it is not clear if it is for any particular reason. He denies toe pain this morning. His vital signs have been stable. His lungs are clear, but he does have a slightly raspy voice this morning. His leg incisions are clean and dry with some mild edema around his knee and no peripheral edema. He has a palpable dorsalis pedis pulse. Begin physical therapy today and home when ambulatory. We will order some Cepastat lozenges for his throat complaints. As mentioned, the patient should be able to go home in the next day or two if he is able to get in and out of his wheelchair and walk to the bathroom. Job ID: [id number]
[2020-06-02] MEDS: Cepastat Lozenges 1 LOZ PO PRN (07:41)
[2020-06-02 07:54] LABS: #Basophils 0.1 thou/uL (0.0-0.2); #Eosinphils 0.1 thou/uL (0.0-0.7); #Lymphocytes 1.4 thou/uL (1.20-3.40); #Monocytes 0.7 thou/uL (0.11-0.59); #Neutrophils 5.7 thou/uL (1.40-6.50); %Basophils 0.7 % (0.0-1.0); %Eosinophils 0.7 % (0.0-10.0); %Lymphocytes 17.3 % (21.0-51.0); %Monocytes 8.3 % (0.0-10.0); Hemoglobin 14.9 g/dL (14.0-18.0); Mean Corpuscular HGB CONC 33.6 g/dL (32.0-36.0); Mean Corpuscular Hemoglobin 34.5 pg (27.0-31.0); Mean Platelet Volume 6.7 fL (7.4-10.4); Platelet Count 156 thou/uL (130-400); RBC Distribution Width 12.2 % (11.5-14.5); Red Blood Cell (RBC) Count 4.32 mill/uL (4.70-6.10); White Blood Cell (WBC) Count 7.9 thou/uL (4.8-10.8)
[2020-06-02 08:13] LABS: Anion Gap 11 mmol/L (10-20); BUN (Urea Nitrogen) 12 mg/dL (8.4-25.7); Calc. Creatinine Clearance 106 mL/min (70-130); Calcium 8.1 mg/dL (7.8-10.44); Carbon Dioxide 27 mmol/L (22-29); Chloride 101 mmol/L (98-107); Estimated GFR-MDRD Greater than 90; Glucose 142 mg/dL (70-105); Sodium 135 mmol/L (136-145)
[2020-06-02] MEDS: Gabapentin 100 MG CAP PO SCH ×2 (09:12→19:59)
[2020-06-02] MEDS: Diazepam 5 MG TAB PO SCH (09:12)
[2020-06-02] MEDS: Losartan 25 MG TAB PO SCH (09:12)
[2020-06-02] MEDS: Enoxaparin Sodium 40 MG/0.4 ML SYRINGE SC SCH (09:12)
[2020-06-02] MEDS: Aspirin 81 mg Enteric Coated Tablet PO SCH (09:12)
--- NOTE | 2020-06-02 10:02 | PDOC.HOSPP ---
- Subjective Encounter Date: 06/02/20 Encounter Time: 09:00 Subjective: No overnight events. Patient now postop day 1 status post femoropopliteal bypass. Patient currently denies chest pain, shortness of breath, palpitations. He reports that his muscle spasms are much improved, and that the pain to his left lower extremity is improved. He denies any new numbness, paresthesias, weakness to the left lower extremity. Patient examined at bedside. Chart and medications reviewed. - Objective Vital Signs & Weight: Vital Signs (12 hours) Temp Pulse Resp BP BP Pulse Ox 06/02/20 08:00 98.0 F 93 16 161/72 H 99 06/02/20 05:15 71 18 142/85 H 100 06/02/20 00:25 97.5 F L 75 18 122/71 100 Weight Weight 147 lb I&O: 06/01/20 06/02/20 06/03/20 06:59 06:59 06:59 Intake Total 2550 1630 Output Total 900 Balance 2550 730 Result Diagrams: 06/03/20 06:11 06/03/20 06:11 Hospitalist ROS - Review of Systems Constitutional: denies: fever, chills, sweats, weakness, malaise, other Eyes: denies: vision change Respiratory: denies: cough Cardiovascular: denies: chest pain, palpitations, orthopnea Gastrointestinal: denies: nausea, vomiting, abdominal pain, diarrhea Genitourinary: denies: dysuria Musculoskeletal: reports: foot pain Skin: reports: rash. denies: lesions Neurological: denies: weakness, change in speech - Medication Medications: Active Medications Generic Name Dose Route Start Last Admin Trade Name Freq PRN Reason Stop Dose Admin Acetaminophen/Codeine Phosphate 1 tab 05/29/20 21:07 06/02/20 03:27 Acetaminophen/Codeine 30-300mg Tablet PO 1 tab Q4HR PRN Administration Severe Pain (7-10) Hydrocodone Bitart/Acetaminophen 1 tab 06/01/20 16:36 06/02/20 00:20 Hydrocodone/Acetaminophen 5/325 Mg Tablet PO 1 tab Q4H PRN Administration Moderate Pain (4-6) Hydrocodone Bitart/Acetaminophen 2 tab 06/01/20 16:36 06/02/20 09:16 Hydrocodone/Acetaminophen 5/325 Mg Tablet PO 2 tab Q4H PRN Administration Pain 7-10 Aspirin 81 mg 05/31/20 09:00 06/02/20 09:12 Aspirin 81 Mg Enteric Coated Tablet PO 81 mg DAILY PRATEEK Administration Diazepam 5 mg 05/31/20 09:00 06/02/20 09:12 Diazepam 5 Mg Tab PO 5 mg BID PRATEEK Administration Enoxaparin Sodium 40 mg 05/30/20 09:00 06/02/20 09:12 Enoxaparin Sodium 40 Mg/0.4 Ml Syringe SC 40 mg 0900 PRATEEK Administration Fentanyl 25 mcg 06/01/20 16:36 06/01/20 20:05 Fentanyl 100 Mcg/2 Ml Vial SLOW IVP 25 mcg Q2H PRN Administration Severe Pain (7-10) Gabapentin 100 mg 05/30/20 21:00 06/02/20 09:12 Gabapentin 100 Mg Cap PO 100 mg BID PRATEEK Administration Vancomycin HCl 1 gm/ Device 200 mls @ 200 mls/hr 05/30/20 13:00 06/02/20 05:06 IVPB 200 mls 0500,1300,2100 PRATEEK Administration Cefazolin Sodium/Dextrose 2 gm 50 mls @ 100 mls/hr 06/01/20 18:00 06/02/20 09:12 / Device IVPB 06/02/20 18:00 50 mls 0200,1000,1800 PRATEEK Administration Losartan Potassium 100 mg 05/30/20 09:00 06/02/20 09:12 Losartan 25 Mg Tab PO 100 mg DAILY PRATEEK Administration Nicotine 14 mg 05/29/20 21:00 06/01/20 20:05 Nicotine 14 Mg Patch TD 14 mg 2100 PRATEEK Administration Throat Lozenges 1 kaitlyn 06/02/20 06:29 06/02/20 07:41 Cepastat Lozenges 1 Kaitlyn PO 1 kaitlyn Q2H PRN Administration Sore Throat - Exam General Appearance: NAD, awake alert Eye: anicteric sclera ENT: normocephalic atraumatic, no oropharyngeal lesions, moist mucosa Neck: supple, symmetric, no JVD Heart: RRR, no murmur, no gallops, no rubs, normal peripheral pulses Respiratory: CTAB, no wheezes, no rales, no ronchi, normal chest expansion, no tachypnea, normal percussion Gastrointestinal: soft, non-tender, non-distended, normal bowel sounds, no palpable masses, no hepatomegaly, no splenomegaly, no bruit Extremities - other findings: Peripheral pulses intact. Groin incision with Dermabond over top. No dorian Skin: no lesions, no rashes Skin - other findings: Left fifth toe ischemia Neurological: normal sensation to touch, no new deficit Musculoskeletal: normal tone, normal strength, no muscle wasting Psychiatric: normal affect, normal behavior, A&O x 3 Hosp A/P - Plan Mr. Bejarano is a 50-year-old male with history of spastic muscle disorder, hypertension, tobacco use disorder, alcohol use disorder who presents with left toe cellulitis which has failed outpatient antibiotic therapy. #Osteomyelitis Left toe cellulitis with worsening maceration between the fourth and fifth toe. WBC 5.3, afebrile. Patient does not meet sirs criteria. X-ray showed no signs of osteomyelitis. Patient denies any trauma to the area, but does have history of spastic muscle disorder. Patient started on IV vancomycin with improvement in the cellulitis, however wound appears ischemic and podiatry of concern for osteomyelitis. ABIs showed decreased blood flow to left lower extremity. CT angiogram showed blockages to left superficial femoral artery. Cardiovascular surgery performed femoropopliteal bypass on 06/01/2020. No complications. MRI of the foot showed signal alteration involving the fifth digit which could reflect reactive osteitis or possibly early osteomyelitis. Podiatry with plans to surgically debride the toe after blood flow is restored. -Continue IV vancomycin -Podiatry following, recs appreciated Angiogram today Vascular surgery following, recs appreciated #Peripheral vascular disease ABIs show decreased blood flow to the left lower extremity. CT aorta with runoff showed occlusion of the left superficial femoral artery just been its origin which reconstitutes in the distal left thigh. Fem-pop bypass on 06/01/2020. Incisions clean with Dermabond over top. No signs of infection. Peripheral pulses intact. -Vascular surgery following s/p fem pop bypass Start aspirin, Plavix #Pedal ulcer Shallow, macerated ulcer in between fourth and fifth digits of the left toe. This a.m. weeping minimally. Will place gauze in between toes and obtain wound care consult. Continue antibiotics as above Patient refusing wound care PVD treatment as above -podiatry following #Neuropathy Patient with baseline neuromuscular disorder of unknown etiology. Patient reports severe shooting pain to left toe associated with muscle cramping. Will start patient on gabapentin for pain control. Start gabapentin 300 mg twice daily -Continue tizanidine 2 mg #Hypertension Continue home losartan #Tobacco use disorder Tobacco cessation counseling, nicotine patch. #Alcohol use disorder Patient reports drinking 16-18 beers per day. No history of seizures or withdrawal symptoms. Last drink was day prior to admission, continue ASE protocol. -Magnesium, thiamine, vitamin B12 -ASE protocol DVT prophylaxis: Lovenox Full code
[2020-06-02] MEDS: Fentanyl 100 MCG/2 ML VIAL SLOW IVP PRN (13:28)
[2020-06-02] MEDS: Polyethylene Glycol 3350 17 GM Packet PO SCH (19:52)
[2020-06-02] MEDS: tiZANidine HCl 4 MG TAB PO SCH (20:00)
[2020-06-02] MEDS: Nicotine 14 MG PATCH TD SCH (20:00)
[2020-06-02] MEDS: Atorvastatin Calcium 20 MG TAB PO SCH (20:00)
[2020-06-02] MEDS: Melatonin 3 MG TAB PO PRN (22:38)
[2020-06-03] MEDS: HYDROcodone/Acetaminophen 5/325 mg Tablet PO PRN ×3 (05:10→20:41)
[2020-06-03] MEDS: Vancomycin 1 GM in Premix Bag 1 BAG IVPB SCH ×3 (05:10→20:43)
[2020-06-03 06:34] LABS: #Eosinphils 0.1 thou/uL (0.0-0.7); #Lymphocytes 0.8 thou/uL (1.20-3.40); #Monocytes 0.7 thou/uL (0.11-0.59); #Neutrophils 4.8 thou/uL (1.40-6.50); %Basophils 0.2 % (0.0-1.0); %Lymphocytes 13.2 % (21.0-51.0); %Monocytes 10.2 % (0.0-10.0); %Neutrophils 74.5 % (42.0-75.0); Hemoglobin 15.5 g/dL (14.0-18.0); Mean Corpuscular HGB CONC 33.6 g/dL (32.0-36.0); Mean Corpuscular Hemoglobin 34.1 pg (27.0-31.0); Mean Platelet Volume 7.1 fL (7.4-10.4); Platelet Count 166 thou/uL (130-400); RBC Distribution Width 12.2 % (11.5-14.5); Red Blood Cell (RBC) Count 4.54 mill/uL (4.70-6.10); White Blood Cell (WBC) Count 6.4 thou/uL (4.8-10.8)
[2020-06-03 06:53] LABS: Anion Gap 11 mmol/L (10-20); BUN (Urea Nitrogen) 7 mg/dL (8.4-25.7); Calc. Creatinine Clearance 110 mL/min (70-130); Calcium 8.8 mg/dL (7.8-10.44); Carbon Dioxide 29 mmol/L (22-29); Chloride 99 mmol/L (98-107); Estimated GFR-MDRD Greater than 90; Glucose 191 mg/dL (70-105); Potassium 4.1 mmol/L (3.5-5.1); Sodium 135 mmol/L (136-145)
--- NOTE | 2020-06-03 08:59 | PDOC.HOSPP ---
- Subjective Encounter Date: 06/03/20 Encounter Time: 08:57 Subjective: No overnight events. Patient reports he overall feels well since surgery. Denies chest pain, shortness of breath, abdominal pain. Reports admission 2 days since his last bowel movement, but denies abdominal pain. Denies new numbness, weakness, paresthesias. Chart and medications reviewed. - Objective Vital Signs & Weight: Vital Signs (12 hours) Temp Pulse Resp BP BP BP Pulse Ox 06/03/20 07:39 98.1 F 79 18 154/73 H 100 06/03/20 04:45 99.8 F H 78 18 129/68 129/68 97 Weight Weight 147 lb I&O: 06/02/20 06/03/20 06/04/20 06:59 06:59 06:59 Intake Total 1630 3180 Output Total 900 Balance 730 3180 Result Diagrams: 06/03/20 06:11 06/03/20 06:11 Hospitalist ROS - Review of Systems Constitutional: denies: fever, chills, sweats Eyes: denies: vision change Respiratory: denies: shortness of breath Cardiovascular: denies: chest pain, palpitations Gastrointestinal: reports: constipation. denies: nausea, vomiting, abdominal pain Genitourinary: denies: dysuria Musculoskeletal: reports: foot pain Skin: reports: rash Neurological: denies: weakness, numbness - Medication Medications: Active Medications Generic Name Dose Route Start Last Admin Trade Name Freq PRN Reason Stop Dose Admin Acetaminophen/Codeine Phosphate 1 tab 05/29/20 21:07 06/02/20 03:27 Acetaminophen/Codeine 30-300mg Tablet PO 1 tab Q4HR PRN Administration Severe Pain (7-10) Hydrocodone Bitart/Acetaminophen 1 tab 06/01/20 16:36 06/02/20 00:20 Hydrocodone/Acetaminophen 5/325 Mg Tablet PO 1 tab Q4H PRN Administration Moderate Pain (4-6) Hydrocodone Bitart/Acetaminophen 2 tab 06/01/20 16:36 06/03/20 05:10 Hydrocodone/Acetaminophen 5/325 Mg Tablet PO 2 tab Q4H PRN Administration Pain 7-10 Aspirin 81 mg 05/31/20 09:00 06/02/20 09:12 Aspirin 81 Mg Enteric Coated Tablet PO 81 mg DAILY PRATEEK Administration Atorvastatin Calcium 20 mg 06/02/20 21:00 06/02/20 20:00 Atorvastatin Calcium 20 Mg Tab PO 20 mg HS PRATEEK Administration Enoxaparin Sodium 40 mg 05/30/20 09:00 06/02/20 09:12 Enoxaparin Sodium 40 Mg/0.4 Ml Syringe SC 40 mg 0900 PRATEEK Administration Fentanyl 25 mcg 06/01/20 16:36 06/02/20 13:28 Fentanyl 100 Mcg/2 Ml Vial SLOW IVP 25 mcg Q2H PRN Administration Severe Pain (7-10) Gabapentin 100 mg 05/30/20 21:00 06/02/20 19:59 Gabapentin 100 Mg Cap PO 100 mg BID PRATEEK Administration Vancomycin HCl 1 gm/ Device 200 mls @ 200 mls/hr 05/30/20 13:00 06/03/20 05:10 IVPB 200 mls 0500,1300,2100 PRATEEK Administration Losartan Potassium 100 mg 05/30/20 09:00 06/02/20 09:12 Losartan 25 Mg Tab PO 100 mg DAILY PRATEEK Administration Melatonin 3 mg 06/02/20 06:30 06/02/20 22:38 Melatonin 3 Mg Tab PO 3 mg HS PRN Administration Insomnia Nicotine 14 mg 05/29/20 21:00 06/02/20 20:00 Nicotine 14 Mg Patch TD 14 mg 2100 PRATEEK Administration Polyethylene Glycol 17 gm 06/02/20 09:00 06/02/20 19:52 Polyethylene Glycol 3350 17 Gm Packet PO Not Given DAILY PRATEEK Throat Lozenges 1 kaitlyn 06/02/20 06:29 06/02/20 07:41 Cepastat Lozenges 1 Kaitlyn PO 1 kaitlyn Q2H PRN Administration Sore Throat Tizanidine HCl 2 mg 06/02/20 21:00 06/02/20 20:00 Tizanidine Hcl 4 Mg Tab PO 2 mg BID PRATEEK Administration - Exam General Appearance: NAD, awake alert Eye: anicteric sclera ENT: normocephalic atraumatic Neck: supple, symmetric, no JVD, no thyromegaly, no lymphadenopathy, no carotid bruit Heart: RRR, no murmur, no gallops, no rubs, normal peripheral pulses Respiratory: CTAB, no wheezes, no rales, no ronchi, normal chest expansion, no t achypnea, normal percussion Gastrointestinal: soft, non-tender, non-distended, normal bowel sounds, no palpable masses, no hepatomegaly, no splenomegaly, no bruit Extremities: no cyanosis, no edema Extremities - other findings: Peripheral pulses intact, incisions to groin, knee Neurological: normal sensation to touch, no weakness, no focal deficits, no new deficit Psychiatric: normal affect, normal behavior, A&O x 3 Hosp A/P - Plan Mr. Bejarano is a 50-year-old male with history of spastic muscle disorder, hypertension, tobacco use disorder, alcohol use disorder who presents with left toe cellulitis, found to have significant PVD requiring fem-pop bypass. #Osteomyelitis Left toe cellulitis with worsening maceration between the fourth and fifth toe. WBC 5.3, afebrile. Patient does not meet sirs criteria. X-ray showed no signs of osteomyelitis. Patient denies any trauma to the area, but does have history of spastic muscle disorder. Patient started on IV vancomycin with improvement in the cellulitis, however wound appears ischemic and podiatry of concern for osteomyelitis. ABIs showed decreased blood flow to left lower extremity. CT angiogram showed blockages to left superficial femoral artery. Cardiovascular surgery performed femoropopliteal bypass on 06/01/2020. No complications. MRI of the foot showed signal alteration involving the fifth digit which could reflect reactive osteitis or possibly early osteomyelitis. Podiatry with plans to surgically debride versus amputate the toe. -Continue IV vancomycin -Podiatry following, recs appreciated Vascular surgery following, recs appreciated #Peripheral vascular disease ABIs show decreased blood flow to the left lower extremity. CT aorta with runoff showed occlusion of the left superficial femoral artery just been its origin which reconstitutes in the distal left thigh. Fem-pop bypass on 06/01/2020. Incisions clean with Dermabond over top. No signs of infection. Peripheral pulses intact. -Vascular surgery following s/p fem pop bypass Continue aspirin, Plavix #Pedal ulcer Shallow, macerated ulcer in between fourth and fifth digits of the left toe. This a.m. weeping minimally. Will place gauze in between toes and obtain wound care consult. Podiatry following with plans to surgically debride vs amputate the toe on 06/04/20. Continue antibiotics as above PVD treatment as above -Podiatry following #Neuropathy Patient with baseline neuromuscular disorder of unknown etiology. Patient reports severe shooting pain to left toe associated with muscle cramping. Will start patient on gabapentin for pain control. Continue gabapentin 300 mg twice daily -Continue tizanidine 2 mg #Hypertension Continue home losartan #Tobacco use disorder Tobacco cessation counseling, nicotine patch. #Alcohol use disorder Patient reports drinking 16-18 beers per day. No history of seizures or withdrawal symptoms. Last drink was day prior to admission, continue ASE protocol. -Magnesium, thiamine, vitamin B12 -ASE protocol DVT prophylaxis: Lovenox Full code
[2020-06-03] MEDS: tiZANidine HCl 4 MG TAB PO SCH ×2 (09:21→20:44)
[2020-06-03] MEDS: Polyethylene Glycol 3350 17 GM Packet PO SCH (09:21)
[2020-06-03] MEDS: Enoxaparin Sodium 40 MG/0.4 ML SYRINGE SC SCH (09:21)
[2020-06-03] MEDS: Losartan 25 MG TAB PO SCH (09:22)
[2020-06-03] MEDS: Aspirin 81 mg Enteric Coated Tablet PO SCH (09:22)
[2020-06-03] MEDS: Gabapentin 100 MG CAP PO SCH ×2 (09:22→20:43)
--- NOTE | 2020-06-03 10:06 | OP ---
DATE OF PROCEDURE: 06/01/2020 PREOPERATIVE DIAGNOSIS: Ischemic rest pain, left foot. PROCEDURE PERFORMED: Left femoral to suprageniculate popliteal artery bypass with 8 mm thin-walled [place]. ANESTHESIA: General. ESTIMATED BLOOD LOSS: 250. DESCRIPTION OF PROCEDURE: After adequate anesthesia had been obtained, an ultrasound was used and the patient was prepped and draped. Incision was made over the distal common femoral and superficial femoral origin, and common and deep femoral system were isolated as well as SFA. Following this, the suprageniculate popliteal artery was isolated through a medial incision, avoiding the saphenous vein, which was in the nearby vicinity. A tunneler was passed and an 8 mm thin-walled graft brought through the tunnel and the patient was heparinized. Following this, the SFA was divided distally about 2 cm from its origin. The distal part oversewn with minimal bleeding. The thin-walled [place] was then anastomosed to the orifice of the SFA extending onto the common femoral artery with a running 6-0 Prolene suture. Following completion of this, vessels were backflushed and forward flushed, and then the distal anastomosis completed to the suprageniculate popliteal artery, which was soft after excising a small segment of wall of the popliteal artery. Following completion of this anastomosis, flow was restored. Protamine was given to partially reverse the heparin, and after obtaining good hemostasis, the wounds were irrigated and closed in layers. The patient is to be taken to the recovery room in guarded condition. Job ID: [id number]
[2020-06-03 12:35] LABS: Vancomycin, Trough 17.3 ug/mL
--- NOTE | 2020-06-03 14:29 | PDOC.EVN ---
Event Note - Event Note Event Note: Care discussed with SHEELA Valadez and pt evaluated. HE is s/p fem-pop bypass and awaiting surgery on left 5th digit. He reports some pain in toe and leg at the surgical site. He denies any n/v/abd pain/diarrhea/f/c. Exam - VS normal gen - alert, responsive, nad lungs - ctab with good air movement heart - normal s1/s2 without audible murmurs abd - soft, nt/nd ext - healing leg bypass surgical sites left foot - edematous, mildly erythematous with open wound on 5th digit Imp: PVD LLE now POD 2 from fem-pop bypass Osteomyelitis left 5th toe Cellulitis on Vanc and cefazolin Tobacco abuse Neuropathy bilateral LE Hypertension Alcohol use Plan: Podiatry plan for surgery tomorrow continue management of blood pressure continue antibiotics dvt prophy - lovenox gi prophy -not indicated reviewed plan of care with patient, no questions or further needs at end of eval
[2020-06-03] MEDS: Senokot S 8.6-50 MG TAB PO SCH (20:43)
[2020-06-03] MEDS: Atorvastatin Calcium 20 MG TAB PO SCH (20:43)
[2020-06-03] MEDS: Nicotine 14 MG PATCH TD SCH (20:44)
--- NOTE | 2020-06-03 21:10 | RAD ---
Portable frontal chest radiograph: 06/03/2020 COMPARISON: None HISTORY: Preoperative patient FINDINGS: Lungs are clear. Heart and mediastinal contours appear within normal limits. IMPRESSION: No acute findings.
[2020-06-04] MEDS: HYDROcodone/Acetaminophen 5/325 mg Tablet PO PRN ×2 (03:49→19:56)
[2020-06-04] MEDS: Vancomycin 1 GM in Premix Bag 1 BAG IVPB SCH ×3 (05:55→21:44)
[2020-06-04 07:55] LABS: #Eosinphils 0.1 thou/uL (0.0-0.7); #Monocytes 0.7 thou/uL (0.11-0.59); #Neutrophils 4.8 thou/uL (1.40-6.50); %Basophils 0.5 % (0.0-1.0); %Eosinophils 2.2 % (0.0-10.0); %Neutrophils 71.3 % (42.0-75.0); Mean Corpuscular HGB CONC 33.3 g/dL (32.0-36.0); Mean Corpuscular Hemoglobin 34.1 pg (27.0-31.0); Mean Platelet Volume 6.9 fL (7.4-10.4); Platelet Count 178 thou/uL (130-400); RBC Distribution Width 12.2 % (11.5-14.5); Red Blood Cell (RBC) Count 4.69 mill/uL (4.70-6.10); White Blood Cell (WBC) Count 6.7 thou/uL (4.8-10.8)
[2020-06-04 08:14] LABS: Anion Gap 11 mmol/L (10-20); BUN (Urea Nitrogen) 11 mg/dL (8.4-25.7); Calc. Creatinine Clearance 108 mL/min (70-130); Calcium 9.4 mg/dL (7.8-10.44); Carbon Dioxide 30 mmol/L (22-29); Chloride 97 mmol/L (98-107); Estimated GFR-MDRD Greater than 90; Glucose 147 mg/dL (70-105); Potassium 4.2 mmol/L (3.5-5.1); Sodium 134 mmol/L (136-145)
[2020-06-04] MEDS: Gabapentin 100 MG CAP PO SCH ×2 (09:49→19:56)
[2020-06-04] MEDS: Losartan 25 MG TAB PO SCH (09:49)
[2020-06-04] MEDS: Aspirin 81 mg Enteric Coated Tablet PO SCH (09:49)
[2020-06-04] MEDS: Enoxaparin Sodium 40 MG/0.4 ML SYRINGE SC SCH (09:49)
[2020-06-04] MEDS: Polyethylene Glycol 3350 17 GM Packet PO SCH (09:49)
[2020-06-04] MEDS: Senokot S 8.6-50 MG TAB PO SCH ×2 (09:49→19:56)
[2020-06-04] MEDS: tiZANidine HCl 4 MG TAB PO SCH ×2 (09:49→19:56)
--- NOTE | 2020-06-04 10:16 | PDOC.HOSPP ---
- Subjective Encounter Date: 06/04/20 Encounter Time: 09:45 Subjective: Patient had fever overnight, currently afebrile. States he feels "rough" today and is ready for surgery for some relief. Denies chest pain, shortness of breath, abdominal pain. Feels the pain medication is taking the edge off but he is still experiencing pain. Gabapentin has helped some with his neuropathy. - Objective Vital Signs & Weight: Vital Signs (12 hours) Temp Pulse Resp BP BP BP Pulse Ox 06/04/20 08:00 98.5 F 94 20 134/85 98 06/04/20 03:51 100.2 F H 99 18 133/84 97 06/04/20 03:39 133/84 Weight Weight 147 lb I&O: 06/03/20 06/04/20 06/05/20 06:59 06:59 06:59 Intake Total 3179 2059 Balance 3179 2059 Result Diagrams: 06/04/20 07:42 06/04/20 07:42 Hospitalist ROS - Medication Medications: Active Medications Generic Name Dose Route Start Last Admin Trade Name Freq PRN Reason Stop Dose Admin Acetaminophen/Codeine Phosphate 1 tab 05/29/20 21:07 06/02/20 03:27 Acetaminophen/Codeine 30-300mg Tablet PO 1 tab Q4HR PRN Administration Severe Pain (7-10) Hydrocodone Bitart/Acetaminophen 1 tab 06/01/20 16:36 06/02/20 00:20 Hydrocodone/Acetaminophen 5/325 Mg Tablet PO 1 tab Q4H PRN Administration Moderate Pain (4-6) Hydrocodone Bitart/Acetaminophen 2 tab 06/01/20 16:36 06/04/20 03:49 Hydrocodone/Acetaminophen 5/325 Mg Tablet PO 2 tab Q4H PRN Administration Pain 7-10 Aspirin 81 mg 05/31/20 09:00 06/04/20 09:49 Aspirin 81 Mg Enteric Coated Tablet PO Not Given DAILY PRATEEK Atorvastatin Calcium 20 mg 06/02/20 21:00 06/03/20 20:43 Atorvastatin Calcium 20 Mg Tab PO 20 mg HS PRATEEK Administration Enoxaparin Sodium 40 mg 05/30/20 09:00 06/04/20 09:49 Enoxaparin Sodium 40 Mg/0.4 Ml Syringe SC Not Given 0900 PRATEEK Fentanyl 25 mcg 06/01/20 16:36 06/02/20 13:28 Fentanyl 100 Mcg/2 Ml Vial SLOW IVP 25 mcg Q2H PRN Administration Severe Pain (7-10) Gabapentin 100 mg 05/30/20 21:00 06/04/20 09:49 Gabapentin 100 Mg Cap PO Not Given BID [facility] Vancomycin HCl 1 gm/ Device 200 mls @ 200 mls/hr 05/30/20 13:00 06/04/20 05:55 IVPB 200 mls 0500,1300,2100 PRATEEK Administration Losartan Potassium 100 mg 05/30/20 09:00 06/04/20 09:49 Losartan 25 Mg Tab PO Not Given DAILY PRATEEK Melatonin 3 mg 06/02/20 06:30 06/02/20 22:38 Melatonin 3 Mg Tab PO 3 mg HS PRN Administration Insomnia Nicotine 14 mg 05/29/20 21:00 06/03/20 20:44 Nicotine 14 Mg Patch TD 14 mg 2100 PRATEEK Administration Polyethylene Glycol 17 gm 06/02/20 09:00 06/04/20 09:49 Polyethylene Glycol 3350 17 Gm Packet PO Not Given DAILY [facility] Senna/Docusate Sodium 1 tab 06/03/20 21:00 06/04/20 09:49 Senokot S 8.6-50 Mg Tab PO Not Given BID [facility] Throat Lozenges 1 kaitlyn 06/02/20 06:29 06/02/20 07:41 Cepastat Lozenges 1 Kaitlyn PO 1 kaitlyn Q2H PRN Administration Sore Throat Tizanidine HCl 2 mg 06/02/20 21:00 06/04/20 09:49 Tizanidine Hcl 4 Mg Tab PO Not Given BID [facility] - Exam General Appearance: NAD, awake alert Eye: anicteric sclera ENT: normocephalic atraumatic, moist mucosa Heart: RRR, no murmur, no gallops, no rubs Respiratory: CTAB, no wheezes, no rales, no ronchi Gastrointestinal: soft, non-tender, non-distended, normal bowel sounds Extremities: no cyanosis Extremities - other findings: incisions to groin and knee Psychiatric: normal behavior Hosp A/P - Plan Osteomyelitis Currently afebrile Currently on IV vancomycin Concern for osteomyelitis, podiatry to amputate fifth toe today Peripheral vascular disease Femoropopliteal bypass on 06/01/2020 Incisions clean dry intact, no signs of infection, peripheral pulses intact Vascular surgery still following Continue aspirin Plavix Pedal ulcer Currently still weeping Plans to either surgically debride or amputate the toe today Continue IV antibiotics Podiatry following Neuropathy Continue gabapentin, has shown some improvement Continue tizanidine Hypertension Continue home medications Tobacco use Currently using nicotine patch which is helping some Alcohol use disorder Reports drinking 16-18 beers per day No withdrawal symptoms including no tremors, was able to sleep at night, no swelling 48-hour since last drink, continue ASE protocol DVT prophylaxis Lovenox Patient discussed with Dr. Aparicio
[2020-06-04] MEDS: Fentanyl 100 MCG/2 ML VIAL SLOW IVP PRN ×2 (10:59→22:48)
[2020-06-04] MEDS ORDERED: Lidocaine 1% PF 5 ML VIAL ONE (14:01)
[2020-06-04] MEDS ORDERED: PROPOFOL 200 MG/20 ML VIAL ONE (14:01)
[2020-06-04] MEDS ORDERED: PHENYLEPHRINE-NS 100 MCG/ML 10 ML SYRINGE ONE (14:02)
[2020-06-04] MEDS ORDERED: Fentanyl 100 MCG/2 ML VIAL ONE ×3 (16:26→18:01)
[2020-06-04] MEDS ORDERED: Neomycin-Polymyxin 1 ML AMP ONE (16:55)
[2020-06-04] MEDS ORDERED: Lidocaine 1% (PF) 30 ML VIAL ONE (16:55)
[2020-06-04] MEDS: Atorvastatin Calcium 20 MG TAB PO SCH (19:56)
[2020-06-04] MEDS: Melatonin 3 MG TAB PO PRN (19:56)
[2020-06-04] MEDS: Nicotine 14 MG PATCH TD SCH (19:57)
--- NOTE | 2020-06-04 22:47 | OP ---
DATE OF PROCEDURE: 06/04/2020 He is a 50-year-old male. He is in room 4416 at [facility]. PREOPERATIVE DIAGNOSIS: Fifth digit osteomyelitis, left foot. POSTOPERATIVE DIAGNOSIS: Fifth digit osteomyelitis, left foot. PROCEDURE: Amputation, fifth digit, left foot. ANESTHESIA: LMA with local anesthesia. HEMOSTASIS: None. ESTIMATED BLOOD LOSS: Minimal. PROCEDURE IN DETAIL: Under monitored sedation, the patient was brought into the operating room, placed on the operating room table in a supine position. No tourniquet was used. Following IV sedation and LMA sedation, the fifth digit was blocked with local anesthesia consisting of 10 mL of 1% lidocaine plain, left foot. The foot was then scrubbed, prepped, and draped in the usual aseptic manner. Attention was then directed to the base of the fifth digit, left foot, where a fishmouth incision was made. The incision was deepened down to bone using a sterile 15 blade. The fifth digit at the MPJ level was dissected free of all articulation soft tissue structures and the toe was removed in toto. Good viable bleeding was noted at the fifth MPJ level. No necrotic infected tissue was seen. Healthy bleeding, healthy tissue noted. At this time, aerobic, anaerobic, acid-fast, and fungal cultures of both bone specimens and soft tissue specimens at the base of the proximal phalanx, fifth digit, left foot were taken. A bone biopsy was also ordered on a bone specimen of the base of the proximal phalanx, fifth digit, left foot. At this point in time, the bleeders were cauterized as necessary. The wound was then flushed and irrigated extensively using Simpulse lavage machine using a 3000 bag with G.U. Irrigation. Upon flushing and lavage of the surgical open wound, the wound was then packed with iodoform half-inch Nu Gauze and covered with a sterile compressive dressing consisting of 4x4s, Kerlix, and a 4-inch Pillo wrap in a non-constrictive manner. A postop shoe was then placed on the patient's left foot. The patient tolerated the procedure and the anesthesia well. He was transferred to the PACU with vital signs stable and vascular status intact to remaining toes one through four on the left foot. Following a period of postop monitoring, the patient will be sent back to his room on the floor with written and oral postoperative instructions. Maintain the dressing dry and intact. Today, wound VAC negative pressure was ordered to be started tomorrow by the wound VAC team. Avoid excessive ambulation. Elevate foot over bed. No ice. Postop shoe weightbearing left foot with bathroom privileges. Nursing to contact me for all postop followup care or questions that arise. Patient was prescribed tramadol 50 mg one tablet orally every [address] Mcrae was consulted, Infectious Disease, for antibiotic treatment postop pending culture results. If you have any questions or concerns, please call me at my office at [phone]. Job ID: [id number]
[2020-06-04] MEDS: traMADol HCl 50 MG TAB PO PRN (22:48)
[2020-06-04] MEDS: Cepastat Lozenges 1 LOZ PO PRN (22:51)
[2020-06-05] MEDS: HYDROcodone/Acetaminophen 5/325 mg Tablet PO PRN ×4 (03:05→22:07)
[2020-06-05] MEDS: Vancomycin 1 GM in Premix Bag 1 BAG IVPB SCH ×3 (06:06→19:48)
[2020-06-05 06:09] LABS: #Eosinphils 0.2 thou/uL (0.0-0.7); #Lymphocytes 0.9 thou/uL (1.20-3.40); #Monocytes 0.6 thou/uL (0.11-0.59); #Neutrophils 3.5 thou/uL (1.40-6.50); %Basophils 0.8 % (0.0-1.0); %Eosinophils 3.8 % (0.0-10.0); %Lymphocytes 17.3 % (21.0-51.0); %Monocytes 12.1 % (0.0-10.0); Hemoglobin 13.1 g/dL (14.0-18.0); Mean Corpuscular HGB CONC 33.7 g/dL (32.0-36.0); Mean Corpuscular Hemoglobin 34.4 pg (27.0-31.0); Mean Platelet Volume 7.1 fL (7.4-10.4); Platelet Count 170 thou/uL (130-400); RBC Distribution Width 11.9 % (11.5-14.5); Red Blood Cell (RBC) Count 3.82 mill/uL (4.70-6.10); White Blood Cell (WBC) Count 5.3 thou/uL (4.8-10.8)
[2020-06-05 06:11] LABS: Anion Gap 10 mmol/L (10-20); BUN (Urea Nitrogen) 12 mg/dL (8.4-25.7); Calc. Creatinine Clearance 125 mL/min (70-130); Calcium 8.5 mg/dL (7.8-10.44); Carbon Dioxide 30 mmol/L (22-29); Chloride 99 mmol/L (98-107); Estimated GFR-MDRD Greater than 90; Glucose 132 mg/dL (70-105); Sodium 135 mmol/L (136-145)
[2020-06-05] MEDS: traMADol HCl 50 MG TAB PO PRN ×2 (06:27→16:03)
[2020-06-05] MEDS: Aspirin 81 mg Enteric Coated Tablet PO SCH (08:53)
[2020-06-05] MEDS: Enoxaparin Sodium 40 MG/0.4 ML SYRINGE SC SCH (08:53)
[2020-06-05] MEDS: tiZANidine HCl 4 MG TAB PO SCH ×2 (08:54→19:48)
[2020-06-05] MEDS: Polyethylene Glycol 3350 17 GM Packet PO SCH (08:54)
[2020-06-05] MEDS: Gabapentin 100 MG CAP PO SCH ×2 (08:54→19:47)
[2020-06-05] MEDS: Losartan 25 MG TAB PO SCH (08:56)
[2020-06-05] MEDS: Senokot S 8.6-50 MG TAB PO SCH ×2 (08:56→19:48)
--- NOTE | 2020-06-05 13:34 | PDOC.HOSPP ---
- Subjective Encounter Date: 06/05/20 Encounter Time: 11:00 Subjective: Patient seen for follow-up regarding osteomyelitis. Denies chest pain, shortness of breath, fevers or chills. - Objective Vital Signs & Weight: Vital Signs (12 hours) Temp Pulse Resp BP BP BP Pulse Ox 06/05/20 11:28 98.7 F 75 16 132/71 97 06/05/20 07:26 98.4 F 61 16 124/72 99 06/05/20 04:57 97.3 F L 77 16 99/60 97 06/05/20 04:32 99/60 Weight Admit Weight 147 lb Weight 147 lb I&O: 06/04/20 06/05/20 06/06/20 06:59 06:59 06:59 Intake Total 2059 1190 Balance 2059 1190 Result Diagrams: 06/05/20 05:30 06/05/20 05:30 Additional Labs: I reviewed patient's labs and MAR Hospitalist ROS - Review of Systems Cardiovascular: denies: chest pain, palpitations, orthopnea, paroxysmal noc. dyspnea, edema, light headedness Genitourinary: denies: dysuria, frequency, incontinence, hematuria, retention - Medication Medications: Active Medications Generic Name Dose Route Start Last Admin Trade Name Freq PRN Reason Stop Dose Admin Acetaminophen/Codeine Phosphate 1 tab 05/29/20 21:07 06/02/20 03:27 Acetaminophen/Codeine 30-300mg Tablet PO 1 tab Q4HR PRN Administration Severe Pain (7-10) Hydrocodone Bitart/Acetaminophen 1 tab 06/01/20 16:36 06/05/20 12:25 Hydrocodone/Acetaminophen 5/325 Mg Tablet PO 1 tab Q4H PRN Administration Moderate Pain (4-6) Hydrocodone Bitart/Acetaminophen 2 tab 06/01/20 16:36 06/05/20 03:05 Hydrocodone/Acetaminophen 5/325 Mg Tablet PO 2 tab Q4H PRN Administration Pain 7-10 Aspirin 81 mg 05/31/20 09:00 06/05/20 08:53 Aspirin 81 Mg Enteric Coated Tablet PO 81 mg DAILY PRATEEK Administration Atorvastatin Calcium 20 mg 06/02/20 21:00 06/04/20 19:56 Atorvastatin Calcium 20 Mg Tab PO 20 mg HS PRATEEK Administration Enoxaparin Sodium 40 mg 05/30/20 09:00 06/05/20 08:53 Enoxaparin Sodium 40 Mg/0.4 Ml Syringe SC 40 mg 0900 PRATEEK Administration Fentanyl 25 mcg 06/01/20 16:36 06/04/20 22:48 Fentanyl 100 Mcg/2 Ml Vial SLOW IVP 25 mcg Q2H PRN Administration Severe Pain (7-10) Gabapentin 100 mg 05/30/20 21:00 06/05/20 08:54 Gabapentin 100 Mg Cap PO 100 mg BID PRATEEK Administration Vancomycin HCl 1 gm/ Device 200 mls @ 200 mls/hr 05/30/20 13:00 06/05/20 06:06 IVPB 200 mls 0500,1300,2100 PRATEEK Administration Losartan Potassium 100 mg 05/30/20 09:00 06/05/20 08:56 Losartan 25 Mg Tab PO 100 mg DAILY PRATEEK Administration Melatonin 3 mg 06/02/20 06:30 06/04/20 19:56 Melatonin 3 Mg Tab PO 3 mg HS PRN Administration Insomnia Nicotine 14 mg 05/29/20 21:00 06/04/20 19:57 Nicotine 14 Mg Patch TD 14 mg 2099 PRATEEK Administration Polyethylene Glycol 17 gm 06/02/20 09:00 06/05/20 08:54 Polyethylene Glycol 3350 17 Gm Packet PO 17 gm DAILY PRATEEK Administration Senna/Docusate Sodium 1 tab 06/03/20 21:00 06/05/20 08:56 Senokot S 8.6-50 Mg Tab PO 1 tab BID PRATEEK Administration Throat Lozenges 1 kaitlyn 06/02/20 06:29 06/04/20 22:51 Cepastat Lozenges 1 Kaitlyn PO 1 kaitlyn Q2H PRN Administration Sore Throat Tizanidine HCl 2 mg 06/02/20 21:00 06/05/20 08:54 Tizanidine Hcl 4 Mg Tab PO 2 mg BID PRATEEK Administration Tramadol HCl 50 mg 06/04/20 19:35 06/05/20 06:27 Tramadol Hcl 50 Mg Tab PO 50 mg Q6H PRN Administration Breakthrough Pain - Exam General Appearance: awake alert Eye: anicteric sclera ENT: moist mucosa Neck: supple Heart: RRR Respiratory: CTAB Gastrointestinal: soft, non-tender Extremities: no cyanosis Extremities - other findings: Left foot dressing Skin: no rashes Psychiatric: normal affect, normal behavior Hosp A/P - Plan -Assessment/plan Osteomyelitis S/p post amputation of fifth toe on the left Continue IV vancomycin Peripheral vascular disease S/p femoropopliteal bypass on 06/01/2020 Incisions clean dry intact, no signs of infection, peripheral pulses intact Continue aspirin and Plavix Pedal ulcer Continue IV antibiotics Neuropathy Continue gabapentin and tizanidine Hypertension Continue home medications Tobacco use Continue nicotine replacement therapy Alcohol use disorder Continue AST protocol DVT prophylaxis Lovenox
--- NOTE | 2020-06-05 14:48 | EKG ---
Test Reason : ROUTINE Blood Pressure : / mmHG Vent. Rate : 074 BPM Atrial Rate : 074 BPM P-R Int : 174 ms QRS Dur : 086 ms QT Int : 354 ms P-R-T Axes : 089 023 076 degrees QTc Int : 392 ms Normal sinus rhythm Biatrial enlargement Abnormal ECG No previous ECGs available Confirmed by ZIYAD GOMEZ (2) on 06/05/2020 2:47:53 PM Referred By: MAURI Confirmed By:ZIYAD GOMEZ
[2020-06-05] MEDS: Fentanyl 100 MCG/2 ML VIAL SLOW IVP PRN (14:53)
[2020-06-05] MEDS: Nicotine 14 MG PATCH TD SCH (19:47)
[2020-06-05] MEDS: Atorvastatin Calcium 20 MG TAB PO SCH (19:47)
--- NOTE | 2020-06-05 21:55 | CON ---
DATE OF CONSULTATION: 06/05/2020 REASON FOR CONSULTATION: Left foot osteomyelitis. 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 He was admitted on May 29 and he had an aorta with runoff CTA, which demonstrated occlusion of left SFA. The lower extremity arteries were not evaluated properly, so the patient underwent surgical intervention by Dr. Clemens with femoral-popliteal bypass with a [place]. Subsequently today, the patient underwent amputation of the fifth toe by Dr. Lagos. The operative report was reviewed and there is a fishmouth incision made at the fifth toe, dissected free of articulation and toe removed in toto. According to the description of Dr. Lagos, healthy bleeding and healthy tissue was noted. The bone biopsy was ordered as well. Foot x-ray done on May 29 did not show any abnormalities. He right now is in severe pain from the amputation and the wound change. Denies any headaches. No visual symptoms, sore throat, odynophagia, or dysphagia. No cough or sputum production. No chest pain. No abdominal pain or diarrhea. No genitourinary symptoms. No other joint symptoms. 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 Also, hypertension, chronic smoking, alcohol dependency syndrome, and vitamin D deficiency. FAMILY HISTORY: Negative except for the neuropathy. SOCIAL HISTORY: Smokes daily. LIST OF MEDICATIONS: 1. Aspirin. 2. Lipitor. 3. Lovenox. 4. Fentanyl. 5. Neurontin. 6. Melatonin. 7. Zofran. 8. MiraLAX. 9. Ultram. 10. Vancomycin. PHYSICAL EXAMINATION: VITAL SIGNS: T-max 100.2 yesterday, but he remained afebrile for most of the admission. Other vital signs are normal. O2 saturations are good at 97 on room air. SKIN: With the area of the redness on the tip of the left fifth toe on admission. There is an ulcerated lesion at the dorsal aspect of the toe base. The patient has a peripheral IV access and he has no lymphadenopathy. HEENT: Ocular movements conjugate. Oral cavity moist. The patient has a few missing teeth. NECK: Supple. No jugular vein distention. LUNGS: Symmetric clear breath sounds. HEART: S1 and S2. Regular rate. No S3 or S4. ABDOMEN: Soft, not distended or tender. No ascites. No bladder distention. EXTREMITIES: No joint inflammatory activity outside the area of involvement. Pulses are faintly palpable in dorsalis pedis, left side and 1+ on the right side. Popliteals are 1+ on the right side and left side. NEUROLOGIC: He is in quite a bit of pain and it was not easy to perform neuro exam, but his cognition appears to be preserved. Speech is normal. LABORATORY DATA: White cell count started at 5.1 and now 5.3, hemoglobin 13.1, platelets 170, and 66% neutrophils. Sodium 135, creatinine 0.66, AST 21, ALT 13, bilirubin 0.6, and alkaline phosphatase 79. Vancomycin trough 17. SARS-CoV-2 not detected. Chest x-ray, no acute findings. ASSESSMENT AND PLAN: Chronic smoking, history of alcohol dependency syndrome, reported congenital or hereditary neuropathy, left fifth toe ulcer with inflammatory changes consistent with tuft osteomyelitis, amputation of the toe after revascularization by Dr. Clemens with a femoral-popliteal bypass on the left side. The patient has had culture submitted. Looks like the amputation was beyond the area of involvement by the inflammatory process. Blood cultures have been submitted and will most likely be able to discharge him on oral antimicrobial therapy for approximately two weeks with close monitoring of the wound progress. He is at risk for recrudescence of inflammatory process, dehiscence of the wound because of the vascular insufficiency despite the procedure. Job ID: [id number]
[2020-06-05] MEDS: Melatonin 3 MG TAB PO PRN (22:07)
[2020-06-06] MEDS: HYDROcodone/Acetaminophen 5/325 mg Tablet PO PRN ×3 (04:17→21:03)
[2020-06-06] MEDS: Vancomycin 1 GM in Premix Bag 1 BAG IVPB SCH ×3 (04:17→21:06)
[2020-06-06] MEDS: traMADol HCl 50 MG TAB PO PRN (06:02)
[2020-06-06] MEDS: Gabapentin 100 MG CAP PO SCH ×2 (08:21→21:02)
[2020-06-06] MEDS: tiZANidine HCl 4 MG TAB PO SCH ×2 (08:22→21:02)
[2020-06-06] MEDS: Aspirin 81 mg Enteric Coated Tablet PO SCH (08:23)
[2020-06-06] MEDS: Senokot S 8.6-50 MG TAB PO SCH ×2 (08:23→21:08)
[2020-06-06] MEDS: Losartan 25 MG TAB PO SCH (08:24)
[2020-06-06] MEDS: Polyethylene Glycol 3350 17 GM Packet PO SCH (08:24)
[2020-06-06] MEDS: Enoxaparin Sodium 40 MG/0.4 ML SYRINGE SC SCH (08:24)
[2020-06-06] MEDS ORDERED: Morphine 2 MG/ML VIAL SLOW IVP PRN (10:52)
[2020-06-06 12:49] LABS: Vancomycin, Trough 20.8 ug/mL
[2020-06-06] MEDS ORDERED: Morphine 4 MG/ML VIAL SLOW IVP PRN (19:07)
--- NOTE | 2020-06-06 19:07 | PDOC.HOSPP ---
- Subjective Encounter Date: 06/06/20 Encounter Time: 11:30 Subjective: Patient seen for follow-up regarding osteomyelitis. Denies chest pain or shortness of breath. - Objective Vital Signs & Weight: Vital Signs (12 hours) Temp Pulse Resp BP BP Pulse Ox 06/06/20 15:45 98.4 F 80 14 126/74 100 06/06/20 11:48 98.7 F 78 14 137/78 97 06/06/20 08:00 98 06/06/20 07:37 98.2 F 74 12 124/73 98 Weight Admit Weight 147 lb Weight 147 lb I&O: 06/05/20 06/06/20 06/07/20 06:59 06:59 06:59 Intake Total 1190 1900 1000 Output Total 1725 Balance 5063 606 2892 Result Diagrams: 06/05/20 05:30 06/05/20 05:30 Additional Labs: Labs and MAR reviewed by [facility] Hospitalist ROS - Review of Systems Cardiovascular: denies: chest pain, palpitations, orthopnea, paroxysmal noc. dyspnea, edema, light headedness Gastrointestinal: denies: nausea, vomiting, abdominal pain, diarrhea, constipation, melena, hematochezia - Medication Medications: Active Medications Generic Name Dose Route Start Last Admin Trade Name Freq PRN Reason Stop Dose Admin Acetaminophen/Codeine Phosphate 1 tab 05/29/20 21:07 06/02/20 03:27 Acetaminophen/Codeine 30-300mg Tablet PO 1 tab Q4HR PRN Administration Severe Pain (7-10) Hydrocodone Bitart/Acetaminophen 1 tab 06/01/20 16:36 06/06/20 04:17 Hydrocodone/Acetaminophen 5/325 Mg Tablet PO 1 tab Q4H PRN Administration Moderate Pain (4-6) Hydrocodone Bitart/Acetaminophen 2 tab 06/01/20 16:36 06/06/20 15:56 Hydrocodone/Acetaminophen 5/325 Mg Tablet PO 2 tab Q4H PRN Administration Pain 7-10 Aspirin 81 mg 05/31/20 09:00 06/06/20 08:23 Aspirin 81 Mg Enteric Coated Tablet PO 81 mg DAILY PRATEEK Administration Atorvastatin Calcium 20 mg 06/02/20 21:00 06/05/20 19:47 Atorvastatin Calcium 20 Mg Tab PO 20 mg HS PRATEEK Administration Enoxaparin Sodium 40 mg 05/30/20 09:00 06/06/20 08:24 Enoxaparin Sodium 40 Mg/0.4 Ml Syringe SC 40 mg 0900 PRATEEK Administration Fentanyl 25 mcg 06/01/20 16:36 06/05/20 14:53 Fentanyl 100 Mcg/2 Ml Vial SLOW IVP 25 mcg Q2H PRN Administration Severe Pain (7-10) Gabapentin 100 mg 05/30/20 21:00 06/06/20 08:21 Gabapentin 100 Mg Cap PO 100 mg BID PRATEEK Administration Vancomycin HCl 1 gm/ Device 200 mls @ 200 mls/hr 05/30/20 13:00 06/06/20 14:12 IVPB 200 mls 0500,1300,2100 PRATEEK Administration Losartan Potassium 100 mg 05/30/20 09:00 06/06/20 08:24 Losartan 25 Mg Tab PO 100 mg DAILY PRATEEK Administration Melatonin 3 mg 06/02/20 06:30 06/05/20 22:07 Melatonin 3 Mg Tab PO 3 mg HS PRN Administration Insomnia Nicotine 14 mg 05/29/20 21:00 06/05/20 19:47 Nicotine 14 Mg Patch TD 14 mg 2100 PRATEEK Administration Polyethylene Glycol 17 gm 06/02/20 09:00 06/06/20 08:24 Polyethylene Glycol 3350 17 Gm Packet PO 17 gm DAILY PRATEEK Administration Senna/Docusate Sodium 1 tab 06/03/20 21:00 06/06/20 08:23 Senokot S 8.6-50 Mg Tab PO 1 tab BID PRATEEK Administration Throat Lozenges 1 kaitlyn 06/02/20 06:29 06/04/20 22:51 Cepastat Lozenges 1 Kaitlyn PO 1 kaitlyn Q2H PRN Administration Sore Throat Tizanidine HCl 2 mg 06/02/20 21:00 06/06/20 08:22 Tizanidine Hcl 4 Mg Tab PO 2 mg BID PRATEEK Administration Tramadol HCl 50 mg 06/04/20 19:35 06/06/20 06:02 Tramadol Hcl 50 Mg Tab PO 50 mg Q6H PRN Administration Breakthrough Pain - Exam General Appearance: awake alert Eye: anicteric sclera ENT: moist mucosa Neck: supple Heart: RRR Respiratory: CTAB Gastrointestinal: soft, non-tender Extremities: no cyanosis Extremities - other findings: Left foot dressing Psychiatric: normal affect Hosp A/P - Plan -Assessment/plan Osteomyelitis S/p post amputation of fifth toe on the left Patient is on IV vancomycin Continue wound VAC Peripheral vascular disease S/p femoropopliteal bypass on 06/01/2020 Incisions are clean Patient is aspirin and Plavix Pedal ulcer Continue IV antibiotics Neuropathy Patient is on gabapentin and tizanidine Hypertension Controlled Tobacco use Patient is nicotine replacement therapy Alcohol use disorder Continue ASE protocol DVT prophylaxis Lovenox Add as needed IV morphine 4 mg every 8 hour for pain during wound dressing. Continue as needed [place] and as needed tramadol.
[2020-06-06] MEDS: Atorvastatin Calcium 20 MG TAB PO SCH (21:02)
[2020-06-06] MEDS: Melatonin 3 MG TAB PO PRN (21:03)
[2020-06-06] MEDS: Nicotine 14 MG PATCH TD SCH (21:11)
[2020-06-07] MEDS: HYDROcodone/Acetaminophen 5/325 mg Tablet PO PRN ×5 (05:27→21:41)
[2020-06-07] MEDS: Vancomycin 1 GM in Premix Bag 1 BAG IVPB SCH ×3 (05:38→20:50)
[2020-06-07] MEDS: Enoxaparin Sodium 40 MG/0.4 ML SYRINGE SC SCH (08:40)
[2020-06-07] MEDS: Aspirin 81 mg Enteric Coated Tablet PO SCH (08:40)
[2020-06-07] MEDS: Gabapentin 100 MG CAP PO SCH ×2 (08:41→20:48)
[2020-06-07] MEDS: Losartan 25 MG TAB PO SCH (08:41)
[2020-06-07] MEDS: tiZANidine HCl 4 MG TAB PO SCH ×2 (08:41→20:48)
[2020-06-07] MEDS: Senokot S 8.6-50 MG TAB PO SCH ×2 (08:41→20:48)
[2020-06-07] MEDS: Polyethylene Glycol 3350 17 GM Packet PO SCH (08:44)
[2020-06-07 12:26] LABS: Calc. Creatinine Clearance 113 mL/min (70-130); Estimated GFR-MDRD Greater than 90
[2020-06-07 12:27] LABS: Vancomycin, Trough 21.5 ug/mL
--- NOTE | 2020-06-07 15:28 | PDOC.HOSPP ---
- Subjective Encounter Date: 06/07/20 Encounter Time: 10:20 Subjective: Patient seen for follow-up for osteomyelitis. No new complaints. - Objective Vital Signs & Weight: Vital Signs (12 hours) Temp Pulse Resp BP BP BP Pulse Ox 06/07/20 11:45 110/67 06/07/20 11:29 98.5 F 72 16 110/67 97 06/07/20 07:40 122/76 06/07/20 07:34 98.6 F 72 16 122/76 96 Weight Admit Weight 147 lb Weight 147 lb I&O: 06/06/20 06/07/20 06/08/20 06:59 06:59 06:59 Intake Total 1900 2050 Output Total 1725 850 Balance 175 1200 Result Diagrams: 06/05/20 05:30 06/07/20 11:51 Additional Labs: I reviewed patient's labs and MAR Hospitalist ROS - Review of Systems Cardiovascular: denies: chest pain, palpitations, orthopnea, paroxysmal noc. dyspnea, edema, light headedness Gastrointestinal: denies: nausea, vomiting, abdominal pain, diarrhea, constipation, melena, hematochezia - Medication Medications: Active Medications Generic Name Dose Route Start Last Admin Trade Name Freq PRN Reason Stop Dose Admin Hydrocodone Bitart/Acetaminophen 1 tab 06/01/20 16:36 06/07/20 11:45 Hydrocodone/Acetaminophen 5/325 Mg Tablet PO 1 tab Q4H PRN Administration Moderate Pain (4-6) Hydrocodone Bitart/Acetaminophen 2 tab 06/01/20 16:36 06/07/20 08:42 Hydrocodone/Acetaminophen 5/325 Mg Tablet PO 2 tab Q4H PRN Administration Pain 7-10 Aspirin 81 mg 05/31/20 09:00 06/07/20 08:40 Aspirin 81 Mg Enteric Coated Tablet PO 81 mg DAILY PRATEEK Administration Atorvastatin Calcium 20 mg 06/02/20 21:00 06/06/20 21:02 Atorvastatin Calcium 20 Mg Tab PO 20 mg HS PRATEEK Administration Enoxaparin Sodium 40 mg 05/30/20 09:00 06/07/20 08:40 Enoxaparin Sodium 40 Mg/0.4 Ml Syringe SC 40 mg 0900 PRATEEK Administration Fentanyl 25 mcg 06/01/20 16:36 06/05/20 14:53 Fentanyl 100 Mcg/2 Ml Vial SLOW IVP 25 mcg Q2H PRN Administration Severe Pain (7-10) Gabapentin 100 mg 05/30/20 21:00 06/07/20 08:41 Gabapentin 100 Mg Cap PO 100 mg BID PRATEEK Administration Vancomycin HCl 1 gm/ Device 200 mls @ 200 mls/hr 05/30/20 13:00 06/07/20 13:55 IVPB 200 mls 0500,1300,2100 PRATEEK Administration Losartan Potassium 100 mg 05/30/20 09:00 06/07/20 08:41 Losartan 25 Mg Tab PO 100 mg DAILY PRATEEK Administration Melatonin 3 mg 06/02/20 06:30 06/06/20 21:03 Melatonin 3 Mg Tab PO 3 mg HS PRN Administration Insomnia Morphine Sulfate 4 mg 06/06/20 19:07 06/07/20 09:52 Morphine 4 Mg/Ml Vial SLOW IVP 4 mg Q8H PRN Administration SEVERE BREAKTHRU PAIN Nicotine 14 mg 05/29/20 21:00 06/06/20 21:11 Nicotine 14 Mg Patch TD 14 mg 2100 PRATEEK Administration Polyethylene Glycol 17 gm 06/02/20 09:00 06/07/20 08:44 Polyethylene Glycol 3350 17 Gm Packet PO Not Given DAILY PRATEEK Senna/Docusate Sodium 1 tab 06/03/20 21:00 06/07/20 08:41 Senokot S 8.6-50 Mg Tab PO 1 tab BID PRATEEK Administration Throat Lozenges 1 kaitlyn 06/02/20 06:29 06/04/20 22:51 Cepastat Lozenges 1 Kaitlyn PO 1 kaitlyn Q2H PRN Administration Sore Throat Tizanidine HCl 2 mg 06/02/20 21:00 06/07/20 08:41 Tizanidine Hcl 4 Mg Tab PO 2 mg BID PRATEEK Administration Tramadol HCl 50 mg 06/04/20 19:35 06/06/20 06:02 Tramadol Hcl 50 Mg Tab PO 50 mg Q6H PRN Administration Breakthrough Pain - Exam General Appearance: awake alert Eye: anicteric sclera ENT: moist mucosa Neck: supple Heart: RRR Respiratory: CTAB Gastrointestinal: soft, non-tender Extremities - other findings: Status post left fifth toe amputation Skin: no rashes Psychiatric: normal affect, normal behavior Hosp A/P - Plan -Assessment/plan Osteomyelitis S/p post amputation of left fifth toe Continue IV vancomycin Continue wound VAC Peripheral vascular disease S/p femoropopliteal bypass on 06/01/2020 Continue aspirin and Plavix Neuropathy Continue gabapentin and tizanidine Hypertension Controlled Tobacco use Patient is nicotine replacement therapy Alcohol use disorder Continue ASE protocol DVT prophylaxis Lovenox Continue as needed IV morphine 4 mg every 8 hour for pain during wound dressing. Continue as needed [place] and as needed tramadol.
[2020-06-07] MEDS: Atorvastatin Calcium 20 MG TAB PO SCH (20:48)
[2020-06-07] MEDS: Nicotine 14 MG PATCH TD SCH (20:48)
[2020-06-07] MEDS: Melatonin 3 MG TAB PO PRN (21:43)
[2020-06-08] MEDS: HYDROcodone/Acetaminophen 5/325 mg Tablet PO PRN (04:06)
[2020-06-08] MEDS: Vancomycin 1 GM in Premix Bag 1 BAG IVPB SCH (04:54)
[2020-06-08] MEDS ORDERED: Cephalexin 250 MG CAP PO SCH (09:00)
[2020-06-08] MEDS: Senokot S 8.6-50 MG TAB PO SCH (09:19)
[2020-06-08] MEDS: tiZANidine HCl 4 MG TAB PO SCH (09:19)
[2020-06-08] MEDS: Aspirin 81 mg Enteric Coated Tablet PO SCH (09:19)
[2020-06-08] MEDS: Enoxaparin Sodium 40 MG/0.4 ML SYRINGE SC SCH (09:20)
[2020-06-08] MEDS: Gabapentin 100 MG CAP PO SCH (09:20)
[2020-06-08] MEDS: Losartan 25 MG TAB PO SCH (09:20)
[2020-06-08] MEDS: Polyethylene Glycol 3350 17 GM Packet PO SCH (09:20)
[2020-06-08 10:40] LABS: Fungus Stain Final report (.)
[2020-06-08 11:04] VITALS: BP 104/64; TEMP 98.1
[2020-06-08] MEDS ORDERED: Doxycycline 100 MG CAP PO SCH ×2 (11:45→21:00)
--- NOTE | 2020-06-09 02:05 | DIS ---
DATE OF ADMISSION: 05/31/2020 DATE OF DISCHARGE: 06/08/2020 PRIMARY CARE PROVIDER: Lewis Ya MD DISCHARGE DIAGNOSES: 1. Toe osteomyelitis. 2. Peripheral vascular disease. 3. Hyponatremia. 4. History of tobacco abuse. 5. COVID-19 PCR test negative. CONDITION OF PATIENT ON THE DAY OF DISCHARGE: Stable. I assessed Mr. Bejarano on the day of discharge. He denies any chest pain or shortness of breath. Vital signs are stable. S1 and S2 are heard, regular. Lungs are clear to auscultation bilaterally. CONSULTATIONS DURING THIS HOSPITALIZATION: 1. Podiatry, Dr. Lagos. 2. Cardiovascular Surgery, Dr. Clemens. 3. Infectious Diseases, Dr. Mcrae. HOSPITAL COURSE: Mr. Bejarano is a pleasant 50-year-old gentleman, who was admitted to [facility] on May 29, 2020, for left 5th toe infection after failing antibiotic therapy as outpatient. MRI of the left forefoot suggested reactive osteitis or early osteomyelitis of the 5th digit. He was seen by Podiatry, Cardiovascular Surgery, and Infectious Disease Services during this hospitalization. CT angiogram of aorta with bilateral runoff on May 31 showed occlusion of the left superficial femoral artery just beyond its origin. On June 03, he underwent left femoral to suprageniculate popliteal artery bypass procedure. On June 04, he underwent amputation of the left 5th toe by Podiatry service. He was seen by Therapy Services. He continued to improve clinically. He had wound VAC placed. He is being discharged home with wound VAC for outpatient wound therapy. DISCHARGE MEDICATIONS: Doxycycline 100 mg 2 times a day for four weeks. Otherwise, no change was made to his pre-admission home medications. POST ACUTE CARE FOLLOWUP: With primary care provider in 3 days. ACTIVITY: As tolerated. DIET: Heart healthy. DISCHARGE DESTINATION: Home. TIME SPENT: Total amount of time spent coordinating this discharge: 32 minutes. Job ID: [id number] MTDD
--- NOTE | 2020-06-11 09:09 | PQF ---
CLINICAL DOCUMENTATION CLARIFICATION FORM: Dear : Carlos Dowling Date / Time: 06/11/2020 09:08 Please exercise your independent, professional judgment in responding to the clarification form. Clinical indicators are provided on the bottom of this form for your review Can you please further clarify the nutritional status of the patient? Please check appropriate box(es): [ x] Protein Calorie Malnutrition: [ ] Mild [ ] Moderate [ x] Severe [ ] Other Malnutrition (please specify) [ ] Underweight without malnutrition [ ] Cachexia [ ] Other diagnosis [ ] Unable to determine Physician Signature: Date/Time: For continuity of documentation, please document condition throughout progress notes and discharge summary. Thank You. To be completed by CDI/Coding staff for physician review: Present Clinical Indicators - Signs / Symptoms / Labs Results and Location in Medical Record [X] suggestive of severe malnutrition in the context of chronic illness Consult RD 06/07 [X] BMI [address] 06/07 [X] Albumin: 05/29=4.3 Laboratory 05/29 [X] Total Protein: 05/29=7.6 Laboratory 05/29 Two or More of the Following ASPEN Criteria: [X] severe orbital and buccal fat pad wasting Consult RD 06/07 [X] severe temporalis and gastrocnemius muscle wasting Consult RD 06/07 Present Risk Factors Results and Location in Medical Record [X] HTN HP 05/31 [X] Vitamin D def HP 05/31 [X] Smoker HP 05/31 [X] Alcohol dependence HP 05/31 [X] Cellulitis toe HP 05/31 Present Treatments Results and Location in Medical Record [X] Dietitian Consult Consult RD 06/07 [X] Provide Ensure Enlive BID Consult RD 06/07 [X] Provide Balwinder BID Consult RD 06/07 [X] Monitor weight change Consult RD 06/07 [X] Monitor total protein intake Consult RD 06/07 CDS/Classroom Monitor Signature:Jaleesa Romero Phone #: ext [phone] Date/Time: 06/11/20 09:08 Moderate Malnutrition (in acute illness) ? Energy Intake: <75% of estimated energy requirement for > 7 days ? Weight Loss: 1-2%/1 week; 5%/ 1 month; 7.5%/3 months ? Other: mild body fat loss; mild muscle mass loss; mild fluid accumulation; Severe Malnutrition (in acute illness) ? Energy Intake: ? 50% of estimated energy requirement for ? 5 days ? Weight Loss: >2%/1 week; >5%/1 month; >7.5%/3 months ? Other: moderate body fat loss; moderate muscle mass loss; moderate- severe fluid accumulation; measurably reduced roof assembler strength Moderate Malnutrition (in chronic illness) ? Energy Intake: <75% of estimated energy requirement for ?1 month ? Weight Loss: 5%/1 month; 7.5%/3 months; 10%/6 months; 20%/1 year ? Other: mild body fat loss; mild muscle mass loss; mild fluid accumulation Severe Malnutrition (in chronic illness) ? Energy Intake: ?75% of estimated energy requirement for ?1 month ? Weight Loss: >5%/1 month; >7.5%/3 months; >10%/6 months; >20%/1 year ? Other: severe body fat loss; severe muscle mass loss; severe fluid accumulation; measurably reduced roof assembler strength This is a permanent part of the Medical Record MTDD
== END 2020-06-08 13:11 | disposition home or self-care (01) | DRG 503 ==
LOC: ERS 11:34 → T4-A 15:44 → OBSVTOIN 05-31 11:27
PROVIDERS: ADMIT Student in an Organized Health Care Education/Training Program; ATTEND Student in an Organized Health Care Education/Training Program
PROC: 041L0JL Bypass Left Femoral Artery to Popliteal Artery with Synthetic Substitute, Open Approach (ICD-10-PCS; principal; 2020-06-01)
PROC: 0Y6Y0Z0 Detachment at Left 5th Toe, Complete, Open Approach (ICD-10-PCS; 2020-06-04)
DX: M86.8X7 Other osteomyelitis, ankle and foot (principal); E43 Unspecified severe protein-calorie malnutrition; F10.29 Alcohol dependence with unspecified alcohol-induced disorder; E87.1 Hypo-osmolality and hyponatremia; Z68.1 Body mass index [BMI] 19.9 or less, adult; L03.032 Cellulitis of left toe; I10 Essential (primary) hypertension; E55.9 Vitamin D deficiency, unspecified; F17.210 Nicotine dependence, cigarettes, uncomplicated; L97.529 Non-pressure chronic ulcer of other part of left foot with unspecified severity; G62.9 Polyneuropathy, unspecified; M21.379 Foot drop, unspecified foot; Z20.828 Contact with and (suspected) exposure to other viral communicable diseases; I77.89 Other specified disorders of arteries and arterioles; Z79.899 Other long term (current) drug therapy; Z88.8 Allergy status to other drugs, medicaments and biological substances
CPT/HCPCS: 36415; 71045; 75635; 80048; 80053; 80202; 82565; 82607; 82746; 83036; 83735; 84425; 85025; 86780; 86850; 86900; 86901; 87040; 87070; 87102; 87205; 87206; 87635; 88305; 88311; 93005; 93010; 93922; 96365; 96372; 96375; 96376; A9579; G0378; J0690; J0692; J1100; J1644; J1650; J1885; J2001; J2270; J2370; J2704; J2720; J3010; J3370; J7050; Q9967; U0003

== ENCOUNTER 2020-06-11 21:00 | Emergency (ER) | payer SELFPAY ==
[2020-06-11] MEDS ORDERED: Morphine 4 MG/ML VIAL ONE (22:26)
[2020-06-11] MEDS ORDERED: Lidocaine 4% Cream 5 GM TUBE w/ Tegaderm ONE (22:35)
[2020-06-12] MEDS ORDERED: Lidocaine 4% Topical Sol 50 ML BOT ONE (00:27)
[2020-06-12] MEDS ORDERED: Morphine 4 MG/ML VIAL ONE (00:31)
== END 2020-06-12 01:15 | disposition home or self-care (01) ==
LOC: ERS 21:00
DX: T81.89XA Other complications of procedures, not elsewhere classified, initial encounter (principal); I10 Essential (primary) hypertension; F17.210 Nicotine dependence, cigarettes, uncomplicated
CPT/HCPCS: 96372; 99282; J2270

== ENCOUNTER 2020-11-03 17:09 | Inpatient (IN) | payer OTHER, SELFPAY ==
[~2020-11-03 17:09] MED LIST: Iopamidol-370 76% 500 ML 1 ML ONE
[2020-11-03] MEDS ORDERED: Morphine 4 MG/ML VIAL ONE ×3 (17:35→18:48)
[2020-11-03 18:02] LABS: #Lymphocytes 1.1 thou/uL (1.20-3.40); #Monocytes 0.5 thou/uL (0.11-0.59); #Neutrophils 4.3 thou/uL (1.40-6.50); %Basophils 0.2 % (0.0-1.0); %Eosinophils 0.6 % (0.0-10.0); %Monocytes 8.7 % (0.0-10.0); %Neutrophils 72.5 % (42.0-75.0); Hemoglobin 19.3 g/dL (14.0-18.0); Mean Corpuscular HGB CONC 34.6 g/dL (32.0-36.0); Mean Corpuscular Hemoglobin 35.8 pg (27.0-31.0); Mean Platelet Volume 7.4 fL (7.4-10.4); Platelet Count 108 thou/uL (130-400); RBC Distribution Width 11.9 % (11.5-14.5); Red Blood Cell (RBC) Count 5.38 mill/uL (4.70-6.10); White Blood Cell (WBC) Count 5.9 thou/uL (4.8-10.8)
[2020-11-03 18:04] LABS: PTT 29.1 sec (22.9-36.1); Prothrombin Time 13.2 sec (12.0-14.7)
[2020-11-03 18:12] LABS: Large Platelets SLIGHT; MDiff Complete? YES; Macrocytosis SLIGHT = 6-15 cells (100X) (0-5/hpf); Platelet Morphology Comment Appears Decreased
[2020-11-03 18:18] LABS: ALT (SGPT) 31 U/L (8-55); AST (SGOT) 31 U/L (5-34); Albumin 4.3 g/dL (3.5-5.0); Alkaline Phosphatase 80 U/L (40-110); Anion Gap 17 mmol/L (10-20); BUN (Urea Nitrogen) 8 mg/dL (8.4-25.7); Bilirubin, Total 1.2 mg/dL (0.2-1.2); Calc. Creatinine Clearance 0 mL/min (70-130); Calcium 9.3 mg/dL (7.8-10.44); Carbon Dioxide 25 mmol/L (22-29); Chloride 98 mmol/L (98-107); Glucose 70 mg/dL (70-105); Potassium 3.7 mmol/L (3.5-5.1); Protein, Total 7.3 g/dL (6.0-8.3); Sodium 136 mmol/L (136-145)
[2020-11-03] MEDS ORDERED: Heparin 25,000 units/D5W 500 ML ONE (19:03)
[2020-11-03] MEDS ORDERED: Fentanyl 100 MCG/2 ML VIAL ONE ×2 (19:29→21:15)
[2020-11-03] MEDS ORDERED: Heparin 5,000 UNITS/ML VIAL ONE (19:50)
[2020-11-03] MEDS ORDERED: Protamine Sulfate 50 MG/5 ML VIAL ONE (19:50)
[2020-11-03] MEDS ORDERED: Glycopyrrolate 0.2 MG/ML 5 ML SYRINGE ONE (20:20)
[2020-11-03] MEDS ORDERED: Succinylcholine 200 MG/10 ml SYRINGE FS ONE (20:20)
[2020-11-03] MEDS ORDERED: PHENYLEPHRINE-NS 100 MCG/ML 10 ML SYRINGE ONE (20:20)
[2020-11-03] MEDS ORDERED: Ondansetron PF 4 MG/2 ML Vial ONE (20:20)
[2020-11-03] MEDS ORDERED: ePHEDrine 50 MG/ML VIAL ONE (20:20)
[2020-11-03] MEDS ORDERED: PROPOFOL 200 MG/20 ML VIAL ONE (20:20)
[2020-11-03] MEDS ORDERED: Lidocaine 1% PF 5 ML VIAL ONE (20:20)
[2020-11-03] MEDS ORDERED: Rocuronium Bromide 10 MG/ML (10ML VIAL) ONE (20:20)
[2020-11-03] MEDS ORDERED: Dexamethasone 20 MG/5 ML VIAL ONE (20:20)
[2020-11-03] MEDS ORDERED: Calcium Chloride 1 GM/10 ML Abboject SYRINGE ONE (20:20)
[2020-11-03] MEDS ORDERED: Phenylephrine 10 MG/ML VIAL ONE (21:01)
[2020-11-03] MEDS ORDERED: Midazolam HCl 2 mg/2 ml Vial ONE (21:15)
[2020-11-04] MEDS ORDERED: Fentanyl 100 MCG/2 ML VIAL ONE (00:02)
[2020-11-04] MEDS ORDERED: Acetaminophen 325 MG TAB PO PRN (00:23)
[2020-11-04] MEDS ORDERED: Fentanyl 100 MCG/2 ML VIAL SLOW IVP PRN ×2 (00:23)
[2020-11-04] MEDS ORDERED: Ondansetron PF 4 MG/2 ML Vial IVP PRN (00:23)
[2020-11-04] MEDS ORDERED: HYDROcodone/Acetaminophen 5/325 mg Tablet PO PRN (00:23)
[2020-11-04] MEDS ORDERED: Promethazine HCl 25 MG/ML VIAL SLOW IVP PRN (00:26)
[2020-11-04] MEDS ORDERED: Promethazine HCl 25 MG/ML VIAL IM PRN (00:26)
[2020-11-04] MEDS ORDERED: Ondansetron HCl/PF 4 MG/2 ML Vial IVP PRN (00:26)
[2020-11-04 02:00] VITALS: BMI 21.7
[2020-11-04] MEDS ORDERED: Heparin 10,000 UNITS/ 10 ML VIAL SLOW IVP SCH (02:15)
[2020-11-04] MEDS ORDERED: Heparin 25,000 units/D5W 500 ML IV SCH (02:15)
[2020-11-04] MEDS: Sodium Chloride 0.9% 1,000 ML IV SCH ×2 (02:20→11:17)
[2020-11-04 04:45] LABS: SARS-CoV-2 PCR by NAA Not Detected (NotDetected)
[2020-11-04] MEDS: HYDROcodone/Acetaminophen 5/325 mg Tablet PO PRN ×4 (11:14→23:26)
[2020-11-04] MEDS: Atorvastatin Calcium 40 MG TAB PO SCH (19:38)
[2020-11-05] MEDS: HYDROcodone/Acetaminophen 5/325 mg Tablet PO PRN ×4 (03:59→21:18)
[2020-11-05] MEDS: Aspirin 81 mg Enteric Coated Tablet PO SCH (08:57)
[2020-11-05] MEDS: Losartan 25 MG TAB PO SCH (08:57)
[2020-11-05] MEDS: Atorvastatin Calcium 40 MG TAB PO SCH (21:19)
[2020-11-06] MEDS: HYDROcodone/Acetaminophen 5/325 mg Tablet PO PRN (06:46)
[2020-11-06] MEDS: Aspirin 81 mg Enteric Coated Tablet PO SCH (09:09)
[2020-11-06] MEDS: Losartan 25 MG TAB PO SCH (09:09)
[2020-11-06 11:33] VITALS: BP 136/64; TEMP 97.6
== END 2020-11-06 13:15 | disposition home or self-care (01) | DRG 253 ==
LOC: ERS 17:09 → SDC/OP 20:12 → CCU 22:53 → SURG B 11-04 15:00
PROVIDERS: ADMIT Thoracic Surgery (Cardiothoracic Vascular Surgery); ATTEND Thoracic Surgery (Cardiothoracic Vascular Surgery)
PROC: 041L09N Bypass Left Femoral Artery to Posterior Tibial Artery with Autologous Venous Tissue, Open Approach (ICD-10-PCS; principal; 2020-11-04)
PROC: 06BQ0ZZ Excision of Left Saphenous Vein, Open Approach (ICD-10-PCS; 2020-11-04)
DX: T82.868A Thrombosis due to vascular prosthetic devices, implants and grafts, initial encounter (principal); I74.3 Embolism and thrombosis of arteries of the lower extremities; I10 Essential (primary) hypertension; F17.210 Nicotine dependence, cigarettes, uncomplicated; Z88.8 Allergy status to other drugs, medicaments and biological substances; Y83.2 Surgical operation with anastomosis, bypass or graft as the cause of abnormal reaction of the patient, or of later complication, without mention of misadventure at the time of the procedure; Y92.89 Other specified places as the place of occurrence of the external cause; G62.9 Polyneuropathy, unspecified; F10.20 Alcohol dependence, uncomplicated; I73.9 Peripheral vascular disease, unspecified
CPT/HCPCS: 36415; 75635; 80053; 82550; 85025; 85610; 85730; 86850; 86900; 86901; 87635; 93005; 96365; 96375; 96376; J1100; J1644; J2250; J2270; J2370; J2405; J2704; J2720; J3010; J3490; Q9967; U0003; U0005

== ENCOUNTER 2020-12-27 14:41 | Inpatient (IN) | payer OTHER, SELFPAY ==
[2020-12-27] MEDS ORDERED: Ketamine 50 MG/ML (10ML VIAL) ONE (14:53)
[2020-12-27] MEDS ORDERED: Iopamidol-370 76% 500 ML 1 ML ONE (15:00)
[2020-12-27] MEDS ORDERED: HYDROmorphone 0.5 MG/0.5 ML SYRINGE ONE ×3 (15:22→18:12)
[2020-12-27 15:29] LABS: #Lymphocytes 0.7 thou/uL (1.20-3.40); #Monocytes 0.6 thou/uL (0.11-0.59); #Neutrophils 7.8 thou/uL (1.40-6.50); %Basophils 0.3 % (0.0-1.0); %Eosinophils 0.3 % (0.0-10.0); %Lymphocytes 7.2 % (21.0-51.0); %Monocytes 6.1 % (0.0-10.0); %Neutrophils 86.1 % (42.0-75.0); Hemoglobin 17.3 g/dL (14.0-18.0); Mean Corpuscular HGB CONC 33.1 g/dL (32.0-36.0); Mean Corpuscular Hemoglobin 34.4 pg (27.0-31.0); Mean Platelet Volume 7.4 fL (7.4-10.4); Platelet Count 142 thou/uL (130-400); RBC Distribution Width 12.6 % (11.5-14.5); Red Blood Cell (RBC) Count 5.02 mill/uL (4.70-6.10); White Blood Cell (WBC) Count 9.1 thou/uL (4.8-10.8)
[2020-12-27 15:49] LABS: ALT (SGPT) 75 U/L (8-55); AST (SGOT) 66 U/L (5-34); Alkaline Phosphatase 81 U/L (40-110); Anion Gap 19 mmol/L (10-20); BUN (Urea Nitrogen) 8 mg/dL (8.4-25.7); Bilirubin, Total 0.7 mg/dL (0.2-1.2); CK (CPK) 97 U/L (30-200); Calc. Creatinine Clearance 0 mL/min (70-130); Calcium 9.1 mg/dL (7.8-10.44); Carbon Dioxide 23 mmol/L (22-29); Chloride 99 mmol/L (98-107); Glucose 142 mg/dL (70-105); Sodium 137 mmol/L (136-145)
[2020-12-27] MEDS ORDERED: HYDROmorphone 2 MG TAB PO PRN ×2 (18:45)
[2020-12-27] MEDS ORDERED: HYDROmorphone 0.5 MG/0.5 ML SYRINGE SLOW IVP PRN (18:46)
[2020-12-27] MEDS ORDERED: diphenhydrAMINE 25 MG CAP PO PRN (20:30)
[2020-12-27] MEDS ORDERED: Zolpidem Tartrate 5 MG TAB PO PRN (20:30)
[2020-12-27] MEDS ORDERED: Promethazine HCl 25 MG/ML VIAL IM PRN (20:30)
[2020-12-27] MEDS ORDERED: diphenhydrAMINE 50 MG/ML VIAL IM/IV PRN (20:30)
[2020-12-27] MEDS ORDERED: Ondansetron PF 4 MG/2 ML Vial IVP PRN (20:30)
[2020-12-27] MEDS ORDERED: Naloxone HCl 0.4 mg/ml Vial IV PRN (20:30)
[2020-12-27] MEDS: Morphine Sulfate 100 MG in Dextrose 5% in Water 98 ML IV SCH (21:28)
[2020-12-27] MEDS: Atorvastatin Calcium 20 MG TAB PO SCH (21:31)
[2020-12-28] MEDS: Ketorolac Tromethamine 30 MG/ML VIAL IVP SCH ×4 (00:26→17:05)
[2020-12-28 04:06] LABS: SARS-CoV-2 NAA Rapid Test Not Detected (NotDetected)
[2020-12-28] MEDS: Lactated Ringer's 1,000 ML IV SCH ×2 (05:06→14:35)
[2020-12-28] MEDS ORDERED: Midazolam HCl 2 mg/2 ml Vial ONE (08:22)
[2020-12-28] MEDS ORDERED: Fentanyl 100 MCG/2 ML VIAL ONE ×2 (08:22→09:01)
[2020-12-28] MEDS ORDERED: Lidocaine 1% (PF) 30 ML VIAL ONE (08:30)
[2020-12-28] MEDS ORDERED: Promethazine HCl 25 MG/ML VIAL IM PRN ×2 (08:59→09:15)
[2020-12-28] MEDS ORDERED: Meperidine HCl/PF 25 MG/ML VIAL SLOW IVP PRN (08:59)
[2020-12-28] MEDS ORDERED: Promethazine HCl 25 MG/ML VIAL SLOW IVP PRN (08:59)
[2020-12-28] MEDS ORDERED: HYDROmorphone 2 MG/ML VIAL SLOW IVP PRN (08:59)
[2020-12-28] MEDS ORDERED: Famotidine/PF 20 mg/2ml Vial ONE (09:01)
[2020-12-28] MEDS ORDERED: Ropivacaine 0.5% HCl/PF (150 MG/30 ML VIAL) ONE (09:12)
[2020-12-28] MEDS ORDERED: ePHEDrine Sulfate 50 MG/10 ML VIAL ONE (09:12)
[2020-12-28] MEDS ORDERED: Dexamethasone 20 MG/5 ML VIAL ONE (09:12)
[2020-12-28] MEDS ORDERED: PHENYLEPHRINE-NS 100 MCG/ML 10 ML SYRINGE ONE (09:12)
[2020-12-28] MEDS ORDERED: Ondansetron PF 4 MG/2 ML Vial ONE (09:12)
[2020-12-28] MEDS ORDERED: Ropivacaine 2% HCl/PF (20 MG/10 ML VIAL) ONE (09:12)
[2020-12-28] MEDS ORDERED: Lidocaine 1% PF 5 ML VIAL ONE (09:12)
[2020-12-28] MEDS ORDERED: Glycopyrrolate 0.2 MG/ML 5 ML SYRINGE ONE (09:12)
[2020-12-28] MEDS ORDERED: PROPOFOL 200 MG/20 ML VIAL ONE (09:12)
[2020-12-28] MEDS ORDERED: Rocuronium Bromide 10 MG/ML (10ML VIAL) ONE (09:12)
[2020-12-28] MEDS ORDERED: Bupivacaine HCl 0.5%/Epinephrine 1:200,000/PF 30 ml Vial ONE (09:12)
[2020-12-28] MEDS ORDERED: Ropivacaine 0.2% 550 ML 550 ML NERVE BLCK SCH (09:15)
[2020-12-28] MEDS ORDERED: traMADol HCl 50 MG TAB PO PRN ×2 (09:15)
[2020-12-28] MEDS ORDERED: HYDROcodone/Acetaminophen 10/325 mg Tablet PO PRN ×2 (09:15)
[2020-12-28] MEDS ORDERED: Zolpidem Tartrate 5 MG TAB PO PRN (09:15)
[2020-12-28] MEDS: Losartan 25 MG TAB PO SCH (12:18)
[2020-12-28] MEDS: Fentanyl 100 MCG/2 ML VIAL IV PRN ×3 (13:07→16:26)
[2020-12-28] MEDS ORDERED: Cyclobenzaprine 10 MG TAB PO SCH (14:15)
[2020-12-28] MEDS: Ondansetron PF 4 MG/2 ML Vial IVP PRN (14:20)
[2020-12-28] MEDS: Morphine Sulfate 100 MG in Dextrose 5% in Water 98 ML IV SCH (17:05)
[2020-12-28] MEDS: Atorvastatin Calcium 20 MG TAB PO SCH (20:35)
[2020-12-29] MEDS: Ketorolac Tromethamine 30 MG/ML VIAL IVP SCH ×4 (00:45→17:11)
[2020-12-29] MEDS: Lactated Ringer's 1,000 ML IV SCH ×2 (01:10→11:17)
[2020-12-29] MEDS: Losartan 25 MG TAB PO SCH (07:54)
[2020-12-29] MEDS: Morphine Sulfate 100 MG in Dextrose 5% in Water 98 ML IV SCH (11:48)
[2020-12-29] MEDS: Fentanyl 100 MCG/2 ML VIAL IV PRN ×3 (14:31→20:00)
[2020-12-29] MEDS: Atorvastatin Calcium 20 MG TAB PO SCH (20:03)
[2020-12-30] MEDS: Lactated Ringer's 1,000 ML IV SCH ×3 (05:29→17:02)
[2020-12-30] MEDS: Ketorolac Tromethamine 30 MG/ML VIAL IVP SCH ×2 (05:52)
[2020-12-30] MEDS: Morphine Sulfate 100 MG in Dextrose 5% in Water 98 ML IV SCH (07:21)
[2020-12-30] MEDS: Aspirin Chewable 81 MG TAB PO SCH (07:49)
[2020-12-30] MEDS: Losartan 25 MG TAB PO SCH (08:00)
[2020-12-30] MEDS: Fentanyl 100 MCG/2 ML VIAL IV PRN ×8 (13:21→23:32)
[2020-12-30] MEDS: Acetaminophen 325 MG TAB PO PRN (16:15)
[2020-12-30] MEDS: Atorvastatin Calcium 20 MG TAB PO SCH (20:01)
[2020-12-31] MEDS: Fentanyl 100 MCG/2 ML VIAL IV PRN ×3 (00:47→02:59)
[2020-12-31] MEDS: Morphine Sulfate 100 MG in Dextrose 5% in Water 98 ML IV SCH (00:47)
[2020-12-31] MEDS: Fentanyl CADD 100 ML IVPB SCH (04:05)
[2020-12-31] MEDS: Lactated Ringer's 1,000 ML IV SCH ×2 (05:07→13:54)
[2020-12-31] MEDS: Acetaminophen 325 MG TAB PO PRN ×2 (07:34→20:39)
[2020-12-31] MEDS: Losartan 25 MG TAB PO SCH (09:53)
[2020-12-31] MEDS: Atorvastatin Calcium 20 MG TAB PO SCH (20:39)
[2021-01-01] MEDS: Lactated Ringer's 1,000 ML IV SCH ×3 (01:23→20:14)
[2021-01-01] MEDS: Acetaminophen 325 MG TAB PO PRN ×2 (05:04→18:23)
[2021-01-01] MEDS: Fentanyl CADD 100 ML IVPB SCH (05:42)
[2021-01-01] MEDS: Fentanyl 100 MCG/2 ML VIAL SLOW IVP PRN ×2 (06:16→06:24)
[2021-01-01 08:23] LABS: Bilirubin Small (Negative); Blood, Urine Moderate (Negative); Glucose, Urine (Dipstick) Negative (Negative); Ketone, Urine > or equal to 80 mg/dL (Negative); Leukocyte Negative (Negative); Nitrite Negative (Negative); Protein, Urine (Dipstick) 30 mg/dL (Neg-Trace); Specific Gravity, Urine 1.025 (1.005-1.030); Urobilinogen 0.2 mg/dL (Less than 2)
[2021-01-01 08:46] LABS: Clarity Hazy (Clear)
[2021-01-01 08:49] LABS: Bacteria/HPF Rare-Few HPF (None Seen); Squamous Epithelial None Seen HPF (0-3); WBC/HPF None Seen HPF (0-3)
[2021-01-01 08:51] LABS: Urine Culture Reflex No No
[2021-01-01] MEDS: Losartan 25 MG TAB PO SCH (09:35)
[2021-01-01] MEDS ORDERED: Milk Of Magnesia 30 ML UDCUP PO PRN (17:48)
[2021-01-01] MEDS ORDERED: Magnesium Citrate 300 ML BOT PO PRN (17:49)
[2021-01-01] MEDS: Atorvastatin Calcium 20 MG TAB PO SCH (20:12)
[2021-01-01] MEDS: Docusate 100 MG CAP PO SCH (20:12)
[2021-01-02] MEDS: Fentanyl CADD 100 ML IVPB SCH (00:30)
[2021-01-02] MEDS: Acetaminophen 325 MG TAB PO PRN (01:54)
[2021-01-02] MEDS: Lactated Ringer's 1,000 ML IV SCH (06:02)
[2021-01-02] MEDS: Docusate 100 MG CAP PO SCH ×2 (08:37→19:57)
[2021-01-02] MEDS: Acetaminophen/Codeine 30-300mg Tablet PO PRN ×3 (11:18→20:20)
[2021-01-02] MEDS: Losartan 25 MG TAB PO SCH (12:15)
[2021-01-02] MEDS: Atorvastatin Calcium 20 MG TAB PO SCH (20:03)
[2021-01-02] MEDS: Gabapentin 300 MG CAP PO SCH (20:03)
[2021-01-03] MEDS: Acetaminophen/Codeine 30-300mg Tablet PO PRN ×5 (00:22→21:09)
[2021-01-03] MEDS: Gabapentin 300 MG CAP PO SCH ×2 (08:30→21:10)
[2021-01-03] MEDS: Losartan 25 MG TAB PO SCH (08:30)
[2021-01-03] MEDS: Docusate 100 MG CAP PO SCH ×2 (08:30→21:11)
[2021-01-03 14:03] LABS: Hemoglobin 15.4 g/dL (14.0-18.0); Mean Corpuscular HGB CONC 34.3 g/dL (32.0-36.0); Mean Platelet Volume 7.2 fL (7.4-10.4); Platelet Count 198 thou/uL (130-400); RBC Distribution Width 12.5 % (11.5-14.5); Red Blood Cell (RBC) Count 4.41 mill/uL (4.70-6.10); White Blood Cell (WBC) Count 9.8 thou/uL (4.8-10.8)
[2021-01-03 14:12] LABS: Hemoglobin A1c 4.5 % (4.0-6.0)
[2021-01-03 14:14] LABS: ALT (SGPT) 25 U/L (8-55); AST (SGOT) 26 U/L (5-34); Albumin 2.7 g/dL (3.5-5.0); Alkaline Phosphatase 75 U/L (40-110); Anion Gap 18 mmol/L (10-20); BUN (Urea Nitrogen) 6 mg/dL (8.4-25.7); Bilirubin, Total 0.8 mg/dL (0.2-1.2); Calc. Creatinine Clearance 152 mL/min (70-130); Calcium 8.6 mg/dL (7.8-10.44); Carbon Dioxide 25 mmol/L (22-29); Chloride 90 mmol/L (98-107); Globulin 3.2 g/dL (2.4-3.5); Glucose 107 mg/dL (70-105); Potassium 3.5 mmol/L (3.5-5.1); Protein, Total 5.9 g/dL (6.0-8.3); Sodium 129 mmol/L (136-145)
[2021-01-03] MEDS: Nystatin 500,000 UNITS/5 ML UDCUP SSW SCH ×3 (14:28→21:44)
[2021-01-03 14:42] LABS: Band 46 % (5-11); Lymphocytes 5 % (21-51); MDiff Complete? YES; Metamyelocyte 5 % (0-0); Monocytes 1 % (0-10); Myelocyte 1 % (0-0); Neutrophil 41 % (42-75); Reactive Lymphocytes 1 % (0-10); Reflex for Review?? NO
[2021-01-03] MEDS: Atorvastatin Calcium 20 MG TAB PO SCH (21:10)
[2021-01-03] MEDS: Fentanyl 100 MCG/2 ML VIAL IV PRN ×2 (21:32→23:42)
[2021-01-04] MEDS: Acetaminophen/Codeine 30-300mg Tablet PO PRN ×4 (01:45→22:26)
[2021-01-04] MEDS: Fentanyl 100 MCG/2 ML VIAL IV PRN ×4 (04:54→23:16)
[2021-01-04 05:32] LABS: #Eosinphils 0.1 thou/uL (0.0-0.7); #Lymphocytes 0.6 thou/uL (1.20-3.40); #Neutrophils 8.1 thou/uL (1.40-6.50); %Basophils 0.1 % (0.0-1.0); %Eosinophils 0.8 % (0.0-10.0); %Lymphocytes 6.4 % (21.0-51.0); %Monocytes 9.8 % (0.0-10.0); %Neutrophils 82.8 % (42.0-75.0); Hemoglobin 14.8 g/dL (14.0-18.0); Mean Corpuscular HGB CONC 32.5 g/dL (32.0-36.0); Mean Corpuscular Hemoglobin 33.5 pg (27.0-31.0); Mean Platelet Volume 6.8 fL (7.4-10.4); Platelet Count 272 thou/uL (130-400); RBC Distribution Width 12.5 % (11.5-14.5); Red Blood Cell (RBC) Count 4.42 mill/uL (4.70-6.10); White Blood Cell (WBC) Count 9.8 thou/uL (4.8-10.8)
[2021-01-04 05:56] LABS: ALT (SGPT) 26 U/L (8-55); AST (SGOT) 24 U/L (5-34); Albumin 2.9 g/dL (3.5-5.0); Alkaline Phosphatase 76 U/L (40-110); Anion Gap 16 mmol/L (10-20); BUN (Urea Nitrogen) 7 mg/dL (8.4-25.7); Bilirubin, Total 0.8 mg/dL (0.2-1.2); Calc. Creatinine Clearance 147 mL/min (70-130); Calcium 8.9 mg/dL (7.8-10.44); Carbon Dioxide 31 mmol/L (22-29); Cardiac Risk 3.5 (Less than 4.5); Chloride 89 mmol/L (98-107); Cholesterol 80 mg/dl (< 200 Desired); Globulin 3.2 g/dL (2.4-3.5); Glucose 105 mg/dL (70-105); HDL Cholesterol 23 mg/dL (>60 Neg Risk); LDL Cholesterol, Calculated 39 mg/dL; Potassium 3.2 mmol/L (3.5-5.1); Protein, Total 6.1 g/dL (6.0-8.3); Sodium 133 mmol/L (136-145); Triglycerides 92 mg/dL (Less than 150)
[2021-01-04] MEDS ORDERED: Potassium Chloride 20 MEQ TAB PO SCH (08:15)
[2021-01-04] MEDS ORDERED: Lorazepam 2 MG/ML VIAL SLOW IVP SCH (08:30)
[2021-01-04] MEDS ORDERED: Potassium Bicarbonate/Cit Ac 20 MEQ TAB PO SCH (08:30)
[2021-01-04] MEDS: Citalopram 10 MG TAB PO SCH (08:59)
[2021-01-04] MEDS ORDERED: Amlodipine 5 MG TAB PO SCH (09:00)
[2021-01-04] MEDS ORDERED: Enoxaparin Sodium 40 MG/0.4 ML SYRINGE SC SCH (09:00)
[2021-01-04] MEDS: Losartan 25 MG TAB PO SCH (09:02)
[2021-01-04] MEDS: Gabapentin 300 MG CAP PO SCH ×3 (09:03→21:57)
[2021-01-04] MEDS: Docusate 100 MG CAP PO SCH ×2 (09:04→21:58)
[2021-01-04] MEDS: Aspirin 81 mg Enteric Coated Tablet PO SCH (09:05)
[2021-01-04] MEDS: Nystatin 500,000 UNITS/5 ML UDCUP SSW SCH ×4 (09:05→21:57)
[2021-01-04] MEDS ORDERED: Gabapentin 300 MG CAP PO SCH (15:00)
[2021-01-04] MEDS: fentaNYL 50 mcg/hour Patch TD SCH (15:46)
[2021-01-05] MEDS: Fentanyl 100 MCG/2 ML VIAL IV PRN ×6 (03:05→23:21)
[2021-01-05] MEDS: Acetaminophen/Codeine 30-300mg Tablet PO PRN ×4 (03:57→20:04)
[2021-01-05 05:15] LABS: Hemoglobin 14.2 g/dL (14.0-18.0); Mean Corpuscular HGB CONC 32.9 g/dL (32.0-36.0); Mean Corpuscular Hemoglobin 33.2 pg (27.0-31.0); Mean Platelet Volume 6.5 fL (7.4-10.4); Platelet Count 336 thou/uL (130-400); RBC Distribution Width 12.5 % (11.5-14.5); Red Blood Cell (RBC) Count 4.29 mill/uL (4.70-6.10); White Blood Cell (WBC) Count 11.5 thou/uL (4.8-10.8)
[2021-01-05 05:22] LABS: ALT (SGPT) 26 U/L (8-55); AST (SGOT) 27 U/L (5-34); Albumin 2.8 g/dL (3.5-5.0); Alkaline Phosphatase 81 U/L (40-110); Anion Gap 16 mmol/L (10-20); BUN (Urea Nitrogen) 8 mg/dL (8.4-25.7); Bilirubin, Total 0.8 mg/dL (0.2-1.2); Calc. Creatinine Clearance 161 mL/min (70-130); Calcium 8.5 mg/dL (7.8-10.44); Carbon Dioxide 30 mmol/L (22-29); Chloride 88 mmol/L (98-107); Globulin 3.2 g/dL (2.4-3.5); Glucose 108 mg/dL (70-105); Potassium 3.7 mmol/L (3.5-5.1); Sodium 130 mmol/L (136-145)
[2021-01-05 06:54] LABS: Band 19 % (5-11); Eosinophils 1 % (0-10); Lymphocytes 1 % (21-51); MDiff Complete? YES; Monocytes 3 % (0-10); Neutrophil 76 % (42-75)
[2021-01-05] MEDS ORDERED: Amlodipine 10 MG TAB PO SCH (09:00)
[2021-01-05] MEDS: Losartan 25 MG TAB PO SCH (09:15)
[2021-01-05] MEDS: Gabapentin 300 MG CAP PO SCH ×3 (09:15→20:06)
[2021-01-05] MEDS: Docusate 100 MG CAP PO SCH ×2 (09:15→20:06)
[2021-01-05] MEDS: Enoxaparin Sodium 40 MG/0.4 ML SYRINGE SC SCH (09:16)
[2021-01-05] MEDS: Citalopram 10 MG TAB PO SCH (09:17)
[2021-01-05] MEDS: Hydrochlorothiazide 25 MG TAB PO SCH (09:17)
[2021-01-05] MEDS: Aspirin 81 mg Enteric Coated Tablet PO SCH (09:17)
[2021-01-05] MEDS: Nystatin 500,000 UNITS/5 ML UDCUP SSW SCH ×4 (09:17→20:07)
[2021-01-05 11:55] LABS: HIV (1/2) Antibody/Antigen Non-Reactive (NonReactive); HIV 1/2 INDEX 0.16 S/CO (<1.00); Hep C IgG Ab Non-Reactive (NonReactive); Hep C Index 0.08 S/CO (0-0.79); Syphilis Antibody Nonreactive (Nonreactive); Syphilis Antibody Index 0.04 S/CO (<1.00 Non-Reactive)
[2021-01-05] MEDS: Atorvastatin Calcium 20 MG TAB PO SCH (20:07)
[2021-01-06] MEDS: Acetaminophen/Codeine 30-300mg Tablet PO PRN ×5 (01:45→22:28)
[2021-01-06] MEDS: Fentanyl 100 MCG/2 ML VIAL IV PRN ×4 (03:14→23:29)
[2021-01-06 05:45] LABS: Hemoglobin 15.4 g/dL (14.0-18.0); Mean Corpuscular HGB CONC 34.6 g/dL (32.0-36.0); Mean Corpuscular Hemoglobin 34.8 pg (27.0-31.0); Mean Platelet Volume 6.6 fL (7.4-10.4); Platelet Count 386 thou/uL (130-400); RBC Distribution Width 12.5 % (11.5-14.5); Red Blood Cell (RBC) Count 4.43 mill/uL (4.70-6.10); White Blood Cell (WBC) Count 15.4 thou/uL (4.8-10.8)
[2021-01-06 06:10] LABS: ALT (SGPT) 27 U/L (8-55); AST (SGOT) 26 U/L (5-34); Albumin 2.9 g/dL (3.5-5.0); Alkaline Phosphatase 92 U/L (40-110); Anion Gap 17 mmol/L (10-20); BUN (Urea Nitrogen) 8 mg/dL (8.4-25.7); Calc. Creatinine Clearance 158 mL/min (70-130); Calcium 8.8 mg/dL (7.8-10.44); Carbon Dioxide 28 mmol/L (22-29); Chloride 86 mmol/L (98-107); Globulin 3.5 g/dL (2.4-3.5); Glucose 131 mg/dL (70-105); Potassium 3.7 mmol/L (3.5-5.1); Protein, Total 6.4 g/dL (6.0-8.3); Sodium 127 mmol/L (136-145)
[2021-01-06 06:13] LABS: MDiff Complete? YES
[2021-01-06 06:14] LABS: Band 6 % (5-11); Eosinophils 2 % (0-10); Lymphocytes 5 % (21-51); Monocytes 2 % (0-10); Neutrophil 85 % (42-75); Toxic Granulation SLIGHT
[2021-01-06] MEDS: Nystatin 500,000 UNITS/5 ML UDCUP SSW SCH ×4 (08:32→20:52)
[2021-01-06] MEDS: hydrALAZINE 10 MG TAB PO SCH ×4 (08:36→21:40)
[2021-01-06] MEDS: Losartan 25 MG TAB PO SCH (08:37)
[2021-01-06] MEDS: Citalopram 10 MG TAB PO SCH (08:37)
[2021-01-06] MEDS: Enoxaparin Sodium 40 MG/0.4 ML SYRINGE SC SCH (08:38)
[2021-01-06] MEDS: Aspirin 81 mg Enteric Coated Tablet PO SCH (08:38)
[2021-01-06] MEDS: Gabapentin 300 MG CAP PO SCH ×3 (08:38→20:51)
[2021-01-06] MEDS: Hydrochlorothiazide 25 MG TAB PO SCH (08:38)
[2021-01-06] MEDS: Docusate 100 MG CAP PO SCH ×2 (08:39→20:51)
[2021-01-06] MEDS: Atorvastatin Calcium 20 MG TAB PO SCH (20:52)
[2021-01-06] MEDS: guaiFENesin ER 600 MG TAB PO PRN (20:59)
[2021-01-07] MEDS: Acetaminophen/Codeine 30-300mg Tablet PO PRN ×4 (02:59→23:19)
[2021-01-07 05:42] LABS: Hemoglobin 15.7 g/dL (14.0-18.0); Mean Corpuscular HGB CONC 33.7 g/dL (32.0-36.0); Mean Corpuscular Hemoglobin 33.8 pg (27.0-31.0); Mean Platelet Volume 6.8 fL (7.4-10.4); Platelet Count 434 thou/uL (130-400); RBC Distribution Width 12.7 % (11.5-14.5); Red Blood Cell (RBC) Count 4.64 mill/uL (4.70-6.10); White Blood Cell (WBC) Count 16.1 thou/uL (4.8-10.8)
[2021-01-07 06:02] LABS: ALT (SGPT) 26 U/L (8-55); AST (SGOT) 31 U/L (5-34); Albumin 2.9 g/dL (3.5-5.0); Alkaline Phosphatase 93 U/L (40-110); Anion Gap 15 mmol/L (10-20); BUN (Urea Nitrogen) 10 mg/dL (8.4-25.7); Bilirubin, Total 0.8 mg/dL (0.2-1.2); Calc. Creatinine Clearance 164 mL/min (70-130); Calcium 9.3 mg/dL (7.8-10.44); Carbon Dioxide 30 mmol/L (22-29); Chloride 84 mmol/L (98-107); Globulin 3.7 g/dL (2.4-3.5); Glucose 110 mg/dL (70-105); Potassium 3.9 mmol/L (3.5-5.1); Protein, Total 6.6 g/dL (6.0-8.3); Sodium 125 mmol/L (136-145)
[2021-01-07 06:10] LABS: Band 18 % (5-11); Lymphocytes 4 % (21-51); MDiff Complete? YES; Monocytes 3 % (0-10); Neutrophil 75 % (42-75)
[2021-01-07] MEDS: hydrALAZINE 10 MG TAB PO SCH ×3 (08:29→19:33)
[2021-01-07] MEDS: Aspirin 81 mg Enteric Coated Tablet PO SCH (08:29)
[2021-01-07] MEDS: Nystatin 500,000 UNITS/5 ML UDCUP SSW SCH ×4 (08:30→19:32)
[2021-01-07] MEDS: Gabapentin 300 MG CAP PO SCH ×3 (08:30→19:32)
[2021-01-07] MEDS: Losartan 25 MG TAB PO SCH (08:30)
[2021-01-07] MEDS: Docusate 100 MG CAP PO SCH ×2 (08:30→19:34)
[2021-01-07] MEDS: Citalopram 10 MG TAB PO SCH (08:31)
[2021-01-07] MEDS: Enoxaparin Sodium 40 MG/0.4 ML SYRINGE SC SCH (08:31)
[2021-01-07] MEDS ORDERED: Iopamidol 370 76% 100 ML VIAL ONE (08:53)
[2021-01-07] MEDS: Fentanyl 100 MCG/2 ML VIAL IV PRN (11:14)
[2021-01-07] MEDS ORDERED: Fentanyl 100 MCG/2 ML VIAL IV PRN (13:09)
[2021-01-07] MEDS ORDERED: Naloxone HCl 0.4 mg/ml Vial IV PRN (13:11)
[2021-01-07 13:49] LABS: Bilirubin Negative (Negative); Blood, Urine Negative (Negative); Clarity Clear (Clear); Glucose, Urine (Dipstick) Normal (Negative); Ketone, Urine 10 mg/dL (Negative); Leukocyte Negative Leu/uL (Negative); Nitrite Negative (Negative); Protein, Urine (Dipstick) Negative (Neg-Trace); RBC/HPF 0-3 HPF (0-3); Squamous Epithelial None Seen HPF (0-3); WBC/HPF 0-3 HPF (0-3)
[2021-01-07 13:50] LABS: Bacteria/HPF 1+ HPF (None Seen); Specific Gravity, Urine 1.049 (1.002-1.036)
[2021-01-07 13:51] LABS: Urine Culture Reflex Yes Yes
[2021-01-07] MEDS: fentaNYL 50 mcg/hour Patch TD SCH (13:56)
[2021-01-07 14:17] LABS: Anion Gap 15 mmol/L (10-20); BUN (Urea Nitrogen) 10 mg/dL (8.4-25.7); Calc. Creatinine Clearance 155 mL/min (70-130); Calcium 9.3 mg/dL (7.8-10.44); Carbon Dioxide 31 mmol/L (22-29); Chloride 83 mmol/L (98-107); Glucose 147 mg/dL (70-105); Potassium 3.7 mmol/L (3.5-5.1); Sodium 125 mmol/L (136-145)
[2021-01-07] MEDS: Atorvastatin Calcium 20 MG TAB PO SCH (19:33)
[2021-01-08 05:47] LABS: #Eosinphils 0.1 thou/uL (0.0-0.7); #Lymphocytes 1.2 thou/uL (1.20-3.40); #Neutrophils 14.9 thou/uL (1.40-6.50); %Basophils 0.1 % (0.0-1.0); %Eosinophils 0.6 % (0.0-10.0); %Lymphocytes 7.1 % (21.0-51.0); %Monocytes 5.7 % (0.0-10.0); %Neutrophils 86.5 % (42.0-75.0); Hemoglobin 15.7 g/dL (14.0-18.0); Mean Corpuscular HGB CONC 32.3 g/dL (32.0-36.0); Mean Corpuscular Hemoglobin 32.3 pg (27.0-31.0); Mean Platelet Volume 6.7 fL (7.4-10.4); Platelet Count 584 thou/uL (130-400); RBC Distribution Width 12.5 % (11.5-14.5); Red Blood Cell (RBC) Count 4.85 mill/uL (4.70-6.10); White Blood Cell (WBC) Count 17.3 thou/uL (4.8-10.8)
[2021-01-08 06:14] LABS: ALT (SGPT) 24 U/L (8-55); AST (SGOT) 24 U/L (5-34); Alkaline Phosphatase 115 U/L (40-110); Anion Gap 14 mmol/L (10-20); BUN (Urea Nitrogen) 10 mg/dL (8.4-25.7); Bilirubin, Total 0.8 mg/dL (0.2-1.2); Calc. Creatinine Clearance 158 mL/min (70-130); Calcium 9.5 mg/dL (7.8-10.44); Carbon Dioxide 32 mmol/L (22-29); Chloride 84 mmol/L (98-107); Globulin 3.9 g/dL (2.4-3.5); Glucose 117 mg/dL (70-105); Potassium 4.1 mmol/L (3.5-5.1); Protein, Total 6.9 g/dL (6.0-8.3); Sodium 126 mmol/L (136-145)
[2021-01-08] MEDS: Aspirin 81 mg Enteric Coated Tablet PO SCH (08:02)
[2021-01-08] MEDS: Citalopram 10 MG TAB PO SCH (08:02)
[2021-01-08] MEDS: Losartan 25 MG TAB PO SCH (08:02)
[2021-01-08] MEDS: Docusate 100 MG CAP PO SCH ×2 (08:02→21:31)
[2021-01-08] MEDS: hydrALAZINE 10 MG TAB PO SCH ×3 (08:03→21:24)
[2021-01-08] MEDS: Gabapentin 300 MG CAP PO SCH ×3 (08:04→21:23)
[2021-01-08] MEDS: Enoxaparin Sodium 40 MG/0.4 ML SYRINGE SC SCH (08:04)
[2021-01-08] MEDS: Acetaminophen/Codeine 30-300mg Tablet PO PRN ×4 (08:04→21:27)
[2021-01-08] MEDS: Nystatin 500,000 UNITS/5 ML UDCUP SSW SCH ×4 (08:04→21:24)
[2021-01-08] MEDS: Ondansetron PF 4 MG/2 ML Vial IVP PRN (08:07)
[2021-01-08] MEDS ORDERED: Sodium Chloride 0.9% 1,000 ML IV SCH ×2 (08:15→14:00)
[2021-01-08] MEDS: VANCOMYCIN 1.25 GM/250 ML BAG 1.25 GM in Premix Bag 1 BAG IVPB SCH (12:56)
[2021-01-08 13:30] LABS: Anion Gap 8 mmol/L (10-20); BUN (Urea Nitrogen) 10 mg/dL (8.4-25.7); Calc. Creatinine Clearance 158 mL/min (70-130); Calcium 8.8 mg/dL (7.8-10.44); Carbon Dioxide 32 mmol/L (22-29); Chloride 89 mmol/L (98-107); Glucose 129 mg/dL (70-105); Potassium 4.1 mmol/L (3.5-5.1); Sodium 125 mmol/L (136-145)
[2021-01-08] MEDS: guaiFENesin ER 600 MG TAB PO PRN (14:45)
[2021-01-08] MEDS: Piperacillin/Tazobactam 4.5 GM in Sodium Chloride 0.9% 100 ML IVPB SCH ×2 (17:36→23:36)
[2021-01-08 18:41] LABS: Anion Gap 13 mmol/L (10-20); BUN (Urea Nitrogen) 9 mg/dL (8.4-25.7); Calc. Creatinine Clearance 152 mL/min (70-130); Calcium 8.5 mg/dL (7.8-10.44); Carbon Dioxide 26 mmol/L (22-29); Chloride 93 mmol/L (98-107); Glucose 146 mg/dL (70-105); Potassium 5.1 mmol/L (3.5-5.1); Sodium 127 mmol/L (136-145)
[2021-01-08] MEDS: Atorvastatin Calcium 20 MG TAB PO SCH (21:23)
[2021-01-09] MEDS: VANCOMYCIN 1.25 GM/250 ML BAG 1.25 GM in Premix Bag 1 BAG IVPB SCH ×2 (00:11→12:48)
[2021-01-09] MEDS: Acetaminophen/Codeine 30-300mg Tablet PO PRN ×2 (01:24→04:18)
[2021-01-09 05:05] LABS: #Basophils 0.1 thou/uL (0.0-0.2); #Eosinphils 0.2 thou/uL (0.0-0.7); #Monocytes 0.9 thou/uL (0.11-0.59); #Neutrophils 10.8 thou/uL (1.40-6.50); %Basophils 0.4 % (0.0-1.0); %Eosinophils 1.6 % (0.0-10.0); %Lymphocytes 7.6 % (21.0-51.0); %Neutrophils 83.3 % (42.0-75.0); Hemoglobin 14.5 g/dL (14.0-18.0); Mean Corpuscular HGB CONC 33.5 g/dL (32.0-36.0); Mean Platelet Volume 6.5 fL (7.4-10.4); Platelet Count 563 thou/uL (130-400); RBC Distribution Width 12.5 % (11.5-14.5); Red Blood Cell (RBC) Count 4.27 mill/uL (4.70-6.10); White Blood Cell (WBC) Count 12.9 thou/uL (4.8-10.8)
[2021-01-09 05:30] LABS: ALT (SGPT) 21 U/L (8-55); AST (SGOT) 22 U/L (5-34); Albumin 2.7 g/dL (3.5-5.0); Alkaline Phosphatase 87 U/L (40-110); Anion Gap 11 mmol/L (10-20); BUN (Urea Nitrogen) 8 mg/dL (8.4-25.7); Bilirubin, Total 0.6 mg/dL (0.2-1.2); Calc. Creatinine Clearance 150 mL/min (70-130); Calcium 8.6 mg/dL (7.8-10.44); Carbon Dioxide 30 mmol/L (22-29); Chloride 93 mmol/L (98-107); Globulin 3.5 g/dL (2.4-3.5); Glucose 122 mg/dL (70-105); Potassium 4.1 mmol/L (3.5-5.1); Protein, Total 6.2 g/dL (6.0-8.3); Sodium 130 mmol/L (136-145)
[2021-01-09] MEDS ORDERED: Morphine 4 MG/ML VIAL ONE ×2 (06:53→09:25)
[2021-01-09] MEDS ORDERED: Fentanyl 100 MCG/2 ML VIAL ONE ×3 (06:53→09:14)
[2021-01-09] MEDS: Piperacillin/Tazobactam 4.5 GM in Sodium Chloride 0.9% 100 ML IVPB SCH ×3 (07:08→17:06)
[2021-01-09] MEDS ORDERED: Sodium Chloride 0.9% 100 ML ONE (07:14)
[2021-01-09] MEDS ORDERED: Ondansetron PF 4 MG/2 ML Vial ONE (07:52)
[2021-01-09] MEDS ORDERED: Lidocaine 1% PF 5 ML VIAL ONE (07:52)
[2021-01-09] MEDS ORDERED: Dexamethasone 20 MG/5 ML VIAL ONE (07:52)
[2021-01-09] MEDS ORDERED: PROPOFOL 200 MG/20 ML VIAL ONE (07:52)
[2021-01-09] MEDS ORDERED: Midazolam HCl 2 mg/2 ml Vial ONE (09:17)
[2021-01-09] MEDS ORDERED: Morphine 2 MG/ML VIAL SLOW IVP SCH (10:15)
[2021-01-09] MEDS ORDERED: Midazolam HCl 2 mg/2 ml Vial SLOW IVP SCH (10:15)
[2021-01-09] MEDS: Enoxaparin Sodium 40 MG/0.4 ML SYRINGE SC SCH ×2 (10:20→10:40)
[2021-01-09] MEDS: Losartan 25 MG TAB PO SCH (10:24)
[2021-01-09] MEDS: Aspirin 81 mg Enteric Coated Tablet PO SCH (10:24)
[2021-01-09] MEDS: Gabapentin 300 MG CAP PO SCH ×3 (10:25→22:38)
[2021-01-09] MEDS: Docusate 100 MG CAP PO SCH ×2 (10:25→22:47)
[2021-01-09] MEDS: Citalopram 10 MG TAB PO SCH (10:25)
[2021-01-09] MEDS: hydrALAZINE 10 MG TAB PO SCH ×3 (10:26→22:39)
[2021-01-09] MEDS: Nystatin 500,000 UNITS/5 ML UDCUP SSW SCH ×4 (10:43→22:38)
[2021-01-09] MEDS ORDERED: ALPRAZolam 1 MG TAB PO SCH (12:45)
[2021-01-09] MEDS: Morphine 4 MG/ML VIAL SLOW IVP PRN (12:52)
[2021-01-09] MEDS: fentaNYL 100 mcg/hour Patch TD SCH (13:13)
[2021-01-09] MEDS: ALPRAZolam 1 MG TAB PO SCH (18:57)
[2021-01-09] MEDS: Atorvastatin Calcium 20 MG TAB PO SCH (22:49)
[2021-01-10] MEDS: Piperacillin/Tazobactam 4.5 GM in Sodium Chloride 0.9% 100 ML IVPB SCH ×5 (00:14→23:54)
[2021-01-10 00:15] LABS: Vancomycin, Trough 6.6 ug/mL
[2021-01-10] MEDS: ALPRAZolam 1 MG TAB PO SCH ×5 (00:15→23:53)
[2021-01-10] MEDS: VANCOMYCIN 1.25 GM/250 ML BAG 1.25 GM in Premix Bag 1 BAG IVPB SCH (00:16)
[2021-01-10 05:07] LABS: #Basophils 0.1 thou/uL (0.0-0.2); #Eosinphils 0.1 thou/uL (0.0-0.7); #Lymphocytes 1.2 thou/uL (1.20-3.40); #Monocytes 0.8 thou/uL (0.11-0.59); #Neutrophils 11.4 thou/uL (1.40-6.50); %Basophils 0.4 % (0.0-1.0); %Eosinophils 0.5 % (0.0-10.0); %Lymphocytes 8.7 % (21.0-51.0); %Monocytes 5.8 % (0.0-10.0); %Neutrophils 84.6 % (42.0-75.0); Hemoglobin 13.8 g/dL (14.0-18.0); Mean Corpuscular HGB CONC 32.4 g/dL (32.0-36.0); Mean Platelet Volume 6.1 fL (7.4-10.4); Platelet Count 650 thou/uL (130-400); RBC Distribution Width 12.6 % (11.5-14.5); Red Blood Cell (RBC) Count 4.16 mill/uL (4.70-6.10); White Blood Cell (WBC) Count 13.5 thou/uL (4.8-10.8)
[2021-01-10 05:36] LABS: ALT (SGPT) 21 U/L (8-55); AST (SGOT) 25 U/L (5-34); Albumin 2.7 g/dL (3.5-5.0); Alkaline Phosphatase 84 U/L (40-110); Anion Gap 11 mmol/L (10-20); BUN (Urea Nitrogen) 7 mg/dL (8.4-25.7); Bilirubin, Total 0.4 mg/dL (0.2-1.2); Calc. Creatinine Clearance 174 mL/min (70-130); Calcium 8.6 mg/dL (7.8-10.44); Carbon Dioxide 29 mmol/L (22-29); Chloride 94 mmol/L (98-107); Globulin 3.3 g/dL (2.4-3.5); Glucose 108 mg/dL (70-105); Potassium 4.1 mmol/L (3.5-5.1); Sodium 130 mmol/L (136-145)
[2021-01-10] MEDS ORDERED: Sodium Chloride 0.9% 1,000 ML IV SCH (08:45)
[2021-01-10] MEDS: Gabapentin 300 MG CAP PO SCH ×3 (09:23→21:18)
[2021-01-10] MEDS: Citalopram 10 MG TAB PO SCH (09:24)
[2021-01-10] MEDS: Docusate 100 MG CAP PO SCH ×2 (09:24→21:19)
[2021-01-10] MEDS: hydrALAZINE 10 MG TAB PO SCH ×3 (09:25→21:18)
[2021-01-10] MEDS: Nystatin 500,000 UNITS/5 ML UDCUP SSW SCH ×4 (09:25→21:18)
[2021-01-10] MEDS: Enoxaparin Sodium 40 MG/0.4 ML SYRINGE SC SCH (09:25)
[2021-01-10] MEDS: Losartan 25 MG TAB PO SCH (09:25)
[2021-01-10] MEDS: Aspirin 81 mg Enteric Coated Tablet PO SCH (09:25)
[2021-01-10] MEDS: Vancomycin 1 GM in Premix Bag 1 BAG IVPB SCH ×3 (09:25→23:57)
[2021-01-10] MEDS: Acetaminophen/Codeine 30-300mg Tablet PO PRN (17:03)
[2021-01-10] MEDS: Atorvastatin Calcium 20 MG TAB PO SCH (21:19)
[2021-01-11] MEDS: Acetaminophen/Codeine 30-300mg Tablet PO PRN ×3 (04:19→21:50)
[2021-01-11 05:44] LABS: #Eosinphils 0.1 thou/uL (0.0-0.7); #Lymphocytes 0.9 thou/uL (1.20-3.40); #Neutrophils 10.8 thou/uL (1.40-6.50); %Basophils 0.3 % (0.0-1.0); %Eosinophils 0.7 % (0.0-10.0); %Lymphocytes 6.8 % (21.0-51.0); %Monocytes 8.1 % (0.0-10.0); Hemoglobin 13.2 g/dL (14.0-18.0); Mean Corpuscular HGB CONC 32.9 g/dL (32.0-36.0); Mean Corpuscular Hemoglobin 33.5 pg (27.0-31.0); Mean Platelet Volume 5.9 fL (7.4-10.4); Platelet Count 648 thou/uL (130-400); RBC Distribution Width 12.4 % (11.5-14.5); Red Blood Cell (RBC) Count 3.93 mill/uL (4.70-6.10); White Blood Cell (WBC) Count 12.9 thou/uL (4.8-10.8)
[2021-01-11] MEDS: Piperacillin/Tazobactam 4.5 GM in Sodium Chloride 0.9% 100 ML IVPB SCH ×3 (05:54→18:54)
[2021-01-11] MEDS: ALPRAZolam 1 MG TAB PO SCH ×3 (05:54→18:53)
[2021-01-11 06:06] LABS: ALT (SGPT) 22 U/L (8-55); AST (SGOT) 30 U/L (5-34); Albumin 2.5 g/dL (3.5-5.0); Alkaline Phosphatase 74 U/L (40-110); Anion Gap 9 mmol/L (10-20); BUN (Urea Nitrogen) 10 mg/dL (8.4-25.7); Bilirubin, Total 0.4 mg/dL (0.2-1.2); Calc. Creatinine Clearance 129 mL/min (70-130); Calcium 8.5 mg/dL (7.8-10.44); Carbon Dioxide 33 mmol/L (22-29); Chloride 93 mmol/L (98-107); Globulin 3.2 g/dL (2.4-3.5); Glucose 148 mg/dL (70-105); Potassium 4.1 mmol/L (3.5-5.1); Protein, Total 5.7 g/dL (6.0-8.3); Sodium 131 mmol/L (136-145)
[2021-01-11] MEDS: Aspirin 81 mg Enteric Coated Tablet PO SCH (10:31)
[2021-01-11] MEDS: Citalopram 10 MG TAB PO SCH (10:31)
[2021-01-11] MEDS: Gabapentin 300 MG CAP PO SCH ×3 (10:31→21:26)
[2021-01-11] MEDS: Enoxaparin Sodium 40 MG/0.4 ML SYRINGE SC SCH (10:36)
[2021-01-11] MEDS: Vancomycin 1 GM in Premix Bag 1 BAG IVPB SCH ×2 (10:36→16:00)
[2021-01-11] MEDS: Nystatin 500,000 UNITS/5 ML UDCUP SSW SCH ×4 (10:36→21:19)
[2021-01-11] MEDS: Docusate 100 MG CAP PO SCH ×2 (10:36→21:19)
[2021-01-11] MEDS: hydrALAZINE 10 MG TAB PO SCH ×3 (10:37→21:09)
[2021-01-11] MEDS: Losartan 25 MG TAB PO SCH (10:37)
[2021-01-11] MEDS: Atorvastatin Calcium 20 MG TAB PO SCH (21:20)
[2021-01-12] MEDS: Piperacillin/Tazobactam 4.5 GM in Sodium Chloride 0.9% 100 ML IVPB SCH ×2 (00:02→05:43)
[2021-01-12] MEDS: Vancomycin 1 GM in Premix Bag 1 BAG IVPB SCH ×2 (01:21→08:52)
[2021-01-12] MEDS: ALPRAZolam 1 MG TAB PO SCH ×4 (01:25→17:07)
[2021-01-12] MEDS: Acetaminophen/Codeine 30-300mg Tablet PO PRN ×5 (04:26→21:24)
[2021-01-12 05:36] LABS: #Eosinphils 0.1 thou/uL (0.0-0.7); #Lymphocytes 0.9 thou/uL (1.20-3.40); #Monocytes 1.1 thou/uL (0.11-0.59); #Neutrophils 11.1 thou/uL (1.40-6.50); %Basophils 0.2 % (0.0-1.0); %Eosinophils 0.7 % (0.0-10.0); %Lymphocytes 6.8 % (21.0-51.0); %Monocytes 8.1 % (0.0-10.0); %Neutrophils 84.2 % (42.0-75.0); Hemoglobin 13.3 g/dL (14.0-18.0); Mean Corpuscular HGB CONC 31.9 g/dL (32.0-36.0); Mean Corpuscular Hemoglobin 32.9 pg (27.0-31.0); Mean Platelet Volume 5.9 fL (7.4-10.4); Platelet Count 701 thou/uL (130-400); RBC Distribution Width 12.6 % (11.5-14.5); Red Blood Cell (RBC) Count 4.05 mill/uL (4.70-6.10); White Blood Cell (WBC) Count 13.1 thou/uL (4.8-10.8)
[2021-01-12 05:57] LABS: ALT (SGPT) 19 U/L (8-55); AST (SGOT) 26 U/L (5-34); Albumin 2.6 g/dL (3.5-5.0); Alkaline Phosphatase 73 U/L (40-110); Anion Gap 9 mmol/L (10-20); BUN (Urea Nitrogen) 10 mg/dL (8.4-25.7); Bilirubin, Total 0.6 mg/dL (0.2-1.2); Calc. Creatinine Clearance 112 mL/min (70-130); Calcium 9.1 mg/dL (7.8-10.44); Carbon Dioxide 34 mmol/L (22-29); Chloride 93 mmol/L (98-107); Globulin 3.6 g/dL (2.4-3.5); Glucose 163 mg/dL (70-105); Protein, Total 6.2 g/dL (6.0-8.3); Sodium 132 mmol/L (136-145)
[2021-01-12] MEDS: Citalopram 10 MG TAB PO SCH (08:38)
[2021-01-12] MEDS: Aspirin 81 mg Enteric Coated Tablet PO SCH (08:38)
[2021-01-12] MEDS: Docusate 100 MG CAP PO SCH ×2 (08:38→19:26)
[2021-01-12] MEDS: Enoxaparin Sodium 40 MG/0.4 ML SYRINGE SC SCH (08:38)
[2021-01-12] MEDS: Losartan 25 MG TAB PO SCH (08:39)
[2021-01-12] MEDS: hydrALAZINE 10 MG TAB PO SCH ×3 (08:39→21:10)
[2021-01-12] MEDS: Gabapentin 300 MG CAP PO SCH ×3 (08:40→21:09)
[2021-01-12] MEDS: Nystatin 500,000 UNITS/5 ML UDCUP SSW SCH ×4 (08:40→21:09)
[2021-01-12] MEDS ORDERED: Acetaminophen/Codeine 30-300mg Tablet PO PRN (11:06)
[2021-01-12] MEDS: fentaNYL 100 mcg/hour Patch TD SCH (12:41)
[2021-01-12] MEDS: CEFAZOLIN 2 GM in Premix Bag 1 BAG IVPB SCH ×2 (14:05→21:09)
[2021-01-12] MEDS: Atorvastatin Calcium 40 MG TAB PO SCH (21:10)
[2021-01-13] MEDS: ALPRAZolam 1 MG TAB PO SCH ×4 (00:19→17:31)
[2021-01-13] MEDS: Acetaminophen/Codeine 30-300mg Tablet PO PRN ×3 (05:52→18:24)
[2021-01-13] MEDS: CEFAZOLIN 2 GM in Premix Bag 1 BAG IVPB SCH ×3 (05:52→22:09)
[2021-01-13 06:21] LABS: #Basophils 0.1 thou/uL (0.0-0.2); #Eosinphils 0.2 thou/uL (0.0-0.7); #Lymphocytes 1.3 thou/uL (1.20-3.40); #Neutrophils 9.2 thou/uL (1.40-6.50); %Basophils 0.7 % (0.0-1.0); %Eosinophils 1.8 % (0.0-10.0); %Lymphocytes 11.1 % (21.0-51.0); %Monocytes 8.4 % (0.0-10.0); %Neutrophils 77.9 % (42.0-75.0); Hemoglobin 13.7 g/dL (14.0-18.0); Mean Corpuscular HGB CONC 31.1 g/dL (32.0-36.0); Mean Corpuscular Hemoglobin 32.1 pg (27.0-31.0); Mean Platelet Volume 5.9 fL (7.4-10.4); Platelet Count 769 thou/uL (130-400); RBC Distribution Width 12.5 % (11.5-14.5); Red Blood Cell (RBC) Count 4.28 mill/uL (4.70-6.10); White Blood Cell (WBC) Count 11.7 thou/uL (4.8-10.8)
[2021-01-13 06:38] LABS: ALT (SGPT) 17 U/L (8-55); AST (SGOT) 28 U/L (5-34); Alkaline Phosphatase 85 U/L (40-110); Anion Gap 15 mmol/L (10-20); BUN (Urea Nitrogen) 8 mg/dL (8.4-25.7); Bilirubin, Total 0.4 mg/dL (0.2-1.2); Calc. Creatinine Clearance 120 mL/min (70-130); Calcium 8.8 mg/dL (7.8-10.44); Carbon Dioxide 31 mmol/L (22-29); Chloride 95 mmol/L (98-107); Globulin 3.6 g/dL (2.4-3.5); Glucose 110 mg/dL (70-105); Potassium 4.5 mmol/L (3.5-5.1); Protein, Total 6.6 g/dL (6.0-8.3); Sodium 136 mmol/L (136-145)
[2021-01-13] MEDS: Citalopram 20 MG TAB PO SCH (08:38)
[2021-01-13] MEDS: Nystatin 500,000 UNITS/5 ML UDCUP SSW SCH ×4 (08:38→22:09)
[2021-01-13] MEDS: Losartan 25 MG TAB PO SCH (08:38)
[2021-01-13] MEDS: Aspirin 81 mg Enteric Coated Tablet PO SCH (08:38)
[2021-01-13] MEDS: Enoxaparin Sodium 40 MG/0.4 ML SYRINGE SC SCH (08:38)
[2021-01-13] MEDS: hydrALAZINE 10 MG TAB PO SCH ×3 (08:38→21:15)
[2021-01-13] MEDS: Gabapentin 300 MG CAP PO SCH ×3 (08:38→22:08)
[2021-01-13] MEDS: Docusate 100 MG CAP PO SCH ×2 (08:39→20:04)
[2021-01-13] MEDS: Atorvastatin Calcium 40 MG TAB PO SCH (22:09)
[2021-01-14] MEDS: ALPRAZolam 1 MG TAB PO SCH ×5 (00:35→23:51)
[2021-01-14] MEDS: Acetaminophen/Codeine 30-300mg Tablet PO PRN ×2 (00:42→08:30)
[2021-01-14 05:41] LABS: #Eosinphils 0.2 thou/uL (0.0-0.7); #Lymphocytes 1.2 thou/uL (1.20-3.40); #Neutrophils 5.9 thou/uL (1.40-6.50); %Basophils 0.5 % (0.0-1.0); %Lymphocytes 14.1 % (21.0-51.0); %Monocytes 11.6 % (0.0-10.0); %Neutrophils 70.8 % (42.0-75.0); Hemoglobin 12.3 g/dL (14.0-18.0); Mean Corpuscular HGB CONC 31.1 g/dL (32.0-36.0); Mean Corpuscular Hemoglobin 32.1 pg (27.0-31.0); Mean Platelet Volume 5.8 fL (7.4-10.4); Platelet Count 733 thou/uL (130-400); RBC Distribution Width 12.5 % (11.5-14.5); Red Blood Cell (RBC) Count 3.82 mill/uL (4.70-6.10); White Blood Cell (WBC) Count 8.3 thou/uL (4.8-10.8)
[2021-01-14 05:58] LABS: ALT (SGPT) 11 U/L (8-55); AST (SGOT) 18 U/L (5-34); Albumin 2.7 g/dL (3.5-5.0); Alkaline Phosphatase 75 U/L (40-110); Anion Gap 9 mmol/L (10-20); BUN (Urea Nitrogen) 12 mg/dL (8.4-25.7); Bilirubin, Total 0.2 mg/dL (0.2-1.2); Calc. Creatinine Clearance 118 mL/min (70-130); Calcium 9.1 mg/dL (7.8-10.44); Carbon Dioxide 34 mmol/L (22-29); Chloride 96 mmol/L (98-107); Globulin 3.6 g/dL (2.4-3.5); Glucose 135 mg/dL (70-105); Potassium 4.3 mmol/L (3.5-5.1); Protein, Total 6.3 g/dL (6.0-8.3); Sodium 135 mmol/L (136-145)
[2021-01-14] MEDS: CEFAZOLIN 2 GM in Premix Bag 1 BAG IVPB SCH ×3 (06:20→21:03)
[2021-01-14] MEDS: Enoxaparin Sodium 40 MG/0.4 ML SYRINGE SC SCH (08:29)
[2021-01-14] MEDS: Losartan 25 MG TAB PO SCH (08:30)
[2021-01-14] MEDS: Gabapentin 300 MG CAP PO SCH ×3 (08:31→21:03)
[2021-01-14] MEDS: Citalopram 20 MG TAB PO SCH (08:31)
[2021-01-14] MEDS: Aspirin 81 mg Enteric Coated Tablet PO SCH (08:31)
[2021-01-14] MEDS: Nystatin 500,000 UNITS/5 ML UDCUP SSW SCH ×4 (08:32→21:03)
[2021-01-14] MEDS: Docusate 100 MG CAP PO SCH ×2 (13:54→21:03)
[2021-01-14] MEDS: Morphine 4 MG/ML VIAL SLOW IVP PRN (14:35)
[2021-01-14] MEDS: Atorvastatin Calcium 40 MG TAB PO SCH (21:03)
[2021-01-15] MEDS: Morphine 4 MG/ML VIAL SLOW IVP PRN ×3 (04:31→14:25)
[2021-01-15] MEDS: ALPRAZolam 1 MG TAB PO SCH ×4 (05:21→23:55)
[2021-01-15 05:37] LABS: #Basophils 0.1 thou/uL (0.0-0.2); #Eosinphils 0.2 thou/uL (0.0-0.7); #Lymphocytes 1.7 thou/uL (1.20-3.40); #Monocytes 1.1 thou/uL (0.11-0.59); #Neutrophils 6.6 thou/uL (1.40-6.50); %Basophils 0.8 % (0.0-1.0); %Eosinophils 2.2 % (0.0-10.0); %Lymphocytes 17.6 % (21.0-51.0); %Monocytes 11.4 % (0.0-10.0); Hemoglobin 12.7 g/dL (14.0-18.0); Mean Corpuscular HGB CONC 33.7 g/dL (32.0-36.0); Mean Corpuscular Hemoglobin 34.6 pg (27.0-31.0); Platelet Count 647 thou/uL (130-400); RBC Distribution Width 12.4 % (11.5-14.5); Red Blood Cell (RBC) Count 3.67 mill/uL (4.70-6.10); White Blood Cell (WBC) Count 9.7 thou/uL (4.8-10.8)
[2021-01-15] MEDS: CEFAZOLIN 2 GM in Premix Bag 1 BAG IVPB SCH ×3 (05:55→21:03)
[2021-01-15 06:02] LABS: ALT (SGPT) 9 U/L (8-55); AST (SGOT) 19 U/L (5-34); Albumin 2.8 g/dL (3.5-5.0); Alkaline Phosphatase 80 U/L (40-110); Anion Gap 11 mmol/L (10-20); BUN (Urea Nitrogen) 10 mg/dL (8.4-25.7); Bilirubin, Total 0.3 mg/dL (0.2-1.2); Calc. Creatinine Clearance 129 mL/min (70-130); Calcium 9.4 mg/dL (7.8-10.44); Carbon Dioxide 32 mmol/L (22-29); Chloride 95 mmol/L (98-107); Globulin 3.8 g/dL (2.4-3.5); Glucose 100 mg/dL (70-105); Potassium 4.4 mmol/L (3.5-5.1); Protein, Total 6.6 g/dL (6.0-8.3); Sodium 134 mmol/L (136-145)
[2021-01-15] MEDS ORDERED: Fentanyl 100 MCG/2 ML VIAL ONE ×4 (06:50→08:47)
[2021-01-15] MEDS ORDERED: Midazolam HCl 2 mg/2 ml Vial ONE (07:11)
[2021-01-15] MEDS ORDERED: Ketamine 50 MG/ML (10ML VIAL) ONE (07:12)
[2021-01-15] MEDS ORDERED: PROPOFOL 200 MG/20 ML VIAL ONE (07:30)
[2021-01-15] MEDS ORDERED: Lidocaine 1% PF 5 ML VIAL ONE (07:30)
[2021-01-15] MEDS ORDERED: Promethazine HCl 25 MG/ML VIAL ONE (08:40)
[2021-01-15] MEDS: Gabapentin 300 MG CAP PO SCH ×3 (14:26→20:58)
[2021-01-15] MEDS: fentaNYL 100 mcg/hour Patch TD SCH (14:36)
[2021-01-15] MEDS: Citalopram 20 MG TAB PO SCH (15:04)
[2021-01-15] MEDS: Aspirin 81 mg Enteric Coated Tablet PO SCH (15:04)
[2021-01-15] MEDS: Docusate 100 MG CAP PO SCH ×2 (15:04→21:03)
[2021-01-15] MEDS: Nystatin 500,000 UNITS/5 ML UDCUP SSW SCH ×3 (15:05→21:02)
[2021-01-15] MEDS: Enoxaparin Sodium 40 MG/0.4 ML SYRINGE SC SCH (15:05)
[2021-01-15] MEDS: Losartan 25 MG TAB PO SCH (15:05)
[2021-01-15] MEDS ORDERED: Acetaminophen/Codeine 30-300mg Tablet PO PRN (19:45)
[2021-01-15] MEDS: Atorvastatin Calcium 40 MG TAB PO SCH (20:58)
[2021-01-15] MEDS: Acetaminophen/Codeine 30-300mg Tablet PO PRN (20:59)
[2021-01-16] MEDS: Acetaminophen/Codeine 30-300mg Tablet PO PRN ×3 (03:35→18:12)
[2021-01-16] MEDS: CEFAZOLIN 2 GM in Premix Bag 1 BAG IVPB SCH ×3 (05:03→22:52)
[2021-01-16] MEDS: ALPRAZolam 1 MG TAB PO SCH ×5 (05:03→23:01)
[2021-01-16 06:14] LABS: #Basophils 0.1 thou/uL (0.0-0.2); #Eosinphils 0.2 thou/uL (0.0-0.7); #Neutrophils 6.6 thou/uL (1.40-6.50); %Basophils 0.8 % (0.0-1.0); %Eosinophils 1.8 % (0.0-10.0); %Lymphocytes 11.3 % (21.0-51.0); Hemoglobin 12.2 g/dL (14.0-18.0); Mean Corpuscular HGB CONC 33.5 g/dL (32.0-36.0); Mean Corpuscular Hemoglobin 34.6 pg (27.0-31.0); Platelet Count 593 thou/uL (130-400); RBC Distribution Width 12.4 % (11.5-14.5); Red Blood Cell (RBC) Count 3.53 mill/uL (4.70-6.10); White Blood Cell (WBC) Count 8.8 thou/uL (4.8-10.8)
[2021-01-16 06:39] LABS: ALT (SGPT) 8 U/L (8-55); AST (SGOT) 25 U/L (5-34); Albumin 2.9 g/dL (3.5-5.0); Alkaline Phosphatase 76 U/L (40-110); Anion Gap 13 mmol/L (10-20); BUN (Urea Nitrogen) 9 mg/dL (8.4-25.7); Bilirubin, Total 0.3 mg/dL (0.2-1.2); Calc. Creatinine Clearance 114 mL/min (70-130); Calcium 9.3 mg/dL (7.8-10.44); Carbon Dioxide 33 mmol/L (22-29); Chloride 96 mmol/L (98-107); Globulin 3.7 g/dL (2.4-3.5); Glucose 100 mg/dL (70-105); Potassium 4.1 mmol/L (3.5-5.1); Protein, Total 6.6 g/dL (6.0-8.3); Sodium 138 mmol/L (136-145)
[2021-01-16] MEDS: Aspirin 81 mg Enteric Coated Tablet PO SCH (09:48)
[2021-01-16] MEDS: Nystatin 500,000 UNITS/5 ML UDCUP SSW SCH ×4 (09:48→20:15)
[2021-01-16] MEDS: Enoxaparin Sodium 40 MG/0.4 ML SYRINGE SC SCH (09:48)
[2021-01-16] MEDS: Citalopram 20 MG TAB PO SCH (09:49)
[2021-01-16] MEDS: Losartan 25 MG TAB PO SCH (09:49)
[2021-01-16] MEDS: Gabapentin 300 MG CAP PO SCH ×3 (09:49→23:01)
[2021-01-16] MEDS: Docusate 100 MG CAP PO SCH ×2 (09:50→20:15)
[2021-01-16] MEDS: Atorvastatin Calcium 40 MG TAB PO SCH (20:15)
[2021-01-17 05:47] LABS: #Eosinphils 0.2 thou/uL (0.0-0.7); #Lymphocytes 1.4 thou/uL (1.20-3.40); #Monocytes 0.8 thou/uL (0.11-0.59); #Neutrophils 6.7 thou/uL (1.40-6.50); %Basophils 0.5 % (0.0-1.0); %Eosinophils 2.6 % (0.0-10.0); %Lymphocytes 15.4 % (21.0-51.0); %Monocytes 8.8 % (0.0-10.0); %Neutrophils 72.8 % (42.0-75.0); Hemoglobin 11.2 g/dL (14.0-18.0); Mean Corpuscular HGB CONC 33.2 g/dL (32.0-36.0); Mean Corpuscular Hemoglobin 34.3 pg (27.0-31.0); Platelet Count 509 thou/uL (130-400); RBC Distribution Width 12.5 % (11.5-14.5); Red Blood Cell (RBC) Count 3.28 mill/uL (4.70-6.10); White Blood Cell (WBC) Count 9.3 thou/uL (4.8-10.8)
[2021-01-17 06:12] LABS: ALT (SGPT) Less than 7 U/L (8-55); AST (SGOT) 17 U/L (5-34); Albumin 2.6 g/dL (3.5-5.0); Alkaline Phosphatase 68 U/L (40-110); Anion Gap 10 mmol/L (10-20); BUN (Urea Nitrogen) 9 mg/dL (8.4-25.7); Bilirubin, Total 0.3 mg/dL (0.2-1.2); Calc. Creatinine Clearance 124 mL/min (70-130); Carbon Dioxide 35 mmol/L (22-29); Chloride 97 mmol/L (98-107); Globulin 3.3 g/dL (2.4-3.5); Glucose 92 mg/dL (70-105); Potassium 3.7 mmol/L (3.5-5.1); Protein, Total 5.9 g/dL (6.0-8.3); Sodium 138 mmol/L (136-145)
[2021-01-17] MEDS: CEFAZOLIN 2 GM in Premix Bag 1 BAG IVPB SCH ×3 (06:12→20:19)
[2021-01-17] MEDS: Acetaminophen 325 MG TAB PO PRN (06:16)
[2021-01-17] MEDS: ALPRAZolam 1 MG TAB PO SCH (06:17)
[2021-01-17] MEDS: Citalopram 20 MG TAB PO SCH (08:44)
[2021-01-17] MEDS: Losartan 25 MG TAB PO SCH (08:44)
[2021-01-17] MEDS: Aspirin 81 mg Enteric Coated Tablet PO SCH (08:44)
[2021-01-17] MEDS: Gabapentin 300 MG CAP PO SCH ×3 (08:44→20:20)
[2021-01-17] MEDS: Docusate 100 MG CAP PO SCH ×2 (08:44→20:21)
[2021-01-17] MEDS: Enoxaparin Sodium 40 MG/0.4 ML SYRINGE SC SCH (08:44)
[2021-01-17] MEDS: Nystatin 500,000 UNITS/5 ML UDCUP SSW SCH ×4 (08:45→20:20)
[2021-01-17] MEDS ORDERED: Morphine 4 MG/ML VIAL ONE (09:01)
[2021-01-17] MEDS ORDERED: Fentanyl 100 MCG/2 ML VIAL ONE ×3 (09:42→11:23)
[2021-01-17] MEDS ORDERED: Midazolam HCl 2 mg/2 ml Vial ONE (09:42)
[2021-01-17] MEDS ORDERED: Lidocaine 1% PF 5 ML VIAL ONE (09:44)
[2021-01-17] MEDS ORDERED: Dexamethasone 20 MG/5 ML VIAL ONE (09:44)
[2021-01-17] MEDS ORDERED: PROPOFOL 200 MG/20 ML VIAL ONE (09:44)
[2021-01-17] MEDS ORDERED: PHENYLEPHRINE-NS 100 MCG/ML 10 ML SYRINGE ONE (09:44)
[2021-01-17] MEDS ORDERED: Ondansetron PF 4 MG/2 ML Vial ONE (09:44)
[2021-01-17] MEDS ORDERED: ePHEDrine Sulfate 50 MG/10 ML VIAL ONE (09:44)
[2021-01-17] MEDS ORDERED: HYDROmorphone 2 MG/ML VIAL SLOW IVP PRN (10:37)
[2021-01-17] MEDS ORDERED: Promethazine HCl 25 MG/ML VIAL IM PRN (10:37)
[2021-01-17] MEDS ORDERED: Ondansetron HCl/PF 4 MG/2 ML Vial IVP PRN (10:37)
[2021-01-17] MEDS ORDERED: Promethazine HCl 25 MG/ML VIAL SLOW IVP PRN (10:37)
[2021-01-17] MEDS ORDERED: HYDROmorphone 0.5 MG/0.5 ML SYRINGE ONE ×3 (10:46→11:19)
[2021-01-17] MEDS: Acetaminophen/Codeine 30-300mg Tablet PO PRN ×3 (13:27→22:19)
[2021-01-17] MEDS: Atorvastatin Calcium 40 MG TAB PO SCH (20:21)
[2021-01-17] MEDS: ALPRAZolam 0.25 MG TAB PO PRN (22:21)
[2021-01-18] MEDS: Acetaminophen/Codeine 30-300mg Tablet PO PRN ×4 (05:23→23:29)
[2021-01-18] MEDS: CEFAZOLIN 2 GM in Premix Bag 1 BAG IVPB SCH ×3 (05:24→21:32)
[2021-01-18] MEDS: Losartan 25 MG TAB PO SCH (08:15)
[2021-01-18] MEDS: Gabapentin 300 MG CAP PO SCH ×3 (08:16→19:42)
[2021-01-18] MEDS: Docusate 100 MG CAP PO SCH ×2 (08:17→19:42)
[2021-01-18] MEDS: Aspirin 81 mg Enteric Coated Tablet PO SCH (08:17)
[2021-01-18] MEDS: Citalopram 20 MG TAB PO SCH (08:17)
[2021-01-18] MEDS: Enoxaparin Sodium 40 MG/0.4 ML SYRINGE SC SCH (08:18)
[2021-01-18] MEDS: Nystatin 500,000 UNITS/5 ML UDCUP SSW SCH ×4 (08:18→19:42)
[2021-01-18] MEDS: Morphine 4 MG/ML VIAL SLOW IVP PRN ×3 (11:25→21:32)
[2021-01-18] MEDS: fentaNYL 100 mcg/hour Patch TD SCH (15:13)
[2021-01-18] MEDS: Atorvastatin Calcium 40 MG TAB PO SCH (19:42)
[2021-01-19] MEDS: Morphine 4 MG/ML VIAL SLOW IVP PRN ×4 (01:34→15:12)
[2021-01-19] MEDS: Acetaminophen/Codeine 30-300mg Tablet PO PRN ×5 (04:06→23:13)
[2021-01-19] MEDS: CEFAZOLIN 2 GM in Premix Bag 1 BAG IVPB SCH ×3 (05:25→20:42)
[2021-01-19] MEDS: Gabapentin 300 MG CAP PO SCH ×3 (08:31→20:43)
[2021-01-19] MEDS: Acetaminophen 325 MG TAB PO PRN ×2 (08:31→17:41)
[2021-01-19] MEDS: ALPRAZolam 0.25 MG TAB PO PRN ×2 (08:31→23:16)
[2021-01-19] MEDS: Losartan 25 MG TAB PO SCH (08:35)
[2021-01-19] MEDS: Docusate 100 MG CAP PO SCH ×2 (08:35→20:42)
[2021-01-19] MEDS: Aspirin 81 mg Enteric Coated Tablet PO SCH (08:37)
[2021-01-19] MEDS: Enoxaparin Sodium 40 MG/0.4 ML SYRINGE SC SCH (08:37)
[2021-01-19] MEDS: Citalopram 20 MG TAB PO SCH (08:37)
[2021-01-19] MEDS: Nystatin 500,000 UNITS/5 ML UDCUP SSW SCH ×4 (09:13→20:42)
[2021-01-19] MEDS: Atorvastatin Calcium 40 MG TAB PO SCH (20:42)
[2021-01-20] MEDS: Acetaminophen/Codeine 30-300mg Tablet PO PRN ×5 (03:31→23:35)
[2021-01-20] MEDS: CEFAZOLIN 2 GM in Premix Bag 1 BAG IVPB SCH ×3 (06:21→20:37)
[2021-01-20] MEDS: Acetaminophen 325 MG TAB PO PRN (07:51)
[2021-01-20] MEDS: Losartan 25 MG TAB PO SCH (07:56)
[2021-01-20] MEDS: Aspirin 81 mg Enteric Coated Tablet PO SCH (07:56)
[2021-01-20] MEDS: Gabapentin 300 MG CAP PO SCH ×3 (07:56→20:37)
[2021-01-20] MEDS: Citalopram 20 MG TAB PO SCH (07:57)
[2021-01-20] MEDS: Nystatin 500,000 UNITS/5 ML UDCUP SSW SCH ×4 (07:57→20:38)
[2021-01-20] MEDS: Docusate 100 MG CAP PO SCH ×2 (07:57→23:39)
[2021-01-20] MEDS: Enoxaparin Sodium 40 MG/0.4 ML SYRINGE SC SCH (07:57)
[2021-01-20] MEDS: ALPRAZolam 0.25 MG TAB PO PRN (10:32)
[2021-01-20] MEDS: Atorvastatin Calcium 40 MG TAB PO SCH (20:38)
[2021-01-21] MEDS: CEFAZOLIN 2 GM in Premix Bag 1 BAG IVPB SCH ×3 (06:37→22:35)
[2021-01-21] MEDS ORDERED: Fentanyl 100 MCG/2 ML VIAL ONE ×5 (09:59→12:03)
[2021-01-21] MEDS ORDERED: HYDROmorphone 0.5 MG/0.5 ML SYRINGE ONE ×5 (10:23→11:45)
[2021-01-21] MEDS ORDERED: Ondansetron HCl/PF 4 MG/2 ML Vial IVP PRN (10:37)
[2021-01-21] MEDS ORDERED: HYDROmorphone 2 MG/ML VIAL SLOW IVP PRN (10:37)
[2021-01-21] MEDS ORDERED: PROPOFOL 200 MG/20 ML VIAL ONE (10:41)
[2021-01-21] MEDS ORDERED: Promethazine HCl 25 MG/ML VIAL ONE (11:15)
[2021-01-21] MEDS: Enoxaparin Sodium 40 MG/0.4 ML SYRINGE SC SCH (12:34)
[2021-01-21] MEDS: Nystatin 500,000 UNITS/5 ML UDCUP SSW SCH ×4 (12:34→20:15)
[2021-01-21] MEDS: Losartan 25 MG TAB PO SCH (12:34)
[2021-01-21] MEDS: Gabapentin 300 MG CAP PO SCH ×3 (12:35→20:15)
[2021-01-21] MEDS: Citalopram 20 MG TAB PO SCH (12:35)
[2021-01-21] MEDS: Acetaminophen/Codeine 30-300mg Tablet PO PRN ×3 (12:35→20:19)
[2021-01-21] MEDS: Aspirin 81 mg Enteric Coated Tablet PO SCH (12:35)
[2021-01-21] MEDS: Docusate 100 MG CAP PO SCH ×2 (12:36→20:15)
[2021-01-21] MEDS: ALPRAZolam 0.25 MG TAB PO PRN (14:07)
[2021-01-21] MEDS ORDERED: fentaNYL 100 mcg/hour Patch TD SCH (15:15)
[2021-01-21] MEDS: Atorvastatin Calcium 40 MG TAB PO SCH (20:15)
[2021-01-22] MEDS: Acetaminophen/Codeine 30-300mg Tablet PO PRN ×5 (00:11→18:35)
[2021-01-22] MEDS: CEFAZOLIN 2 GM in Premix Bag 1 BAG IVPB SCH ×3 (04:44→21:27)
[2021-01-22] MEDS: Docusate 100 MG CAP PO SCH ×2 (08:38→21:27)
[2021-01-22] MEDS: Citalopram 20 MG TAB PO SCH (08:38)
[2021-01-22] MEDS: Enoxaparin Sodium 40 MG/0.4 ML SYRINGE SC SCH (08:38)
[2021-01-22] MEDS: Gabapentin 300 MG CAP PO SCH ×3 (08:38→21:27)
[2021-01-22] MEDS: Aspirin 81 mg Enteric Coated Tablet PO SCH (08:38)
[2021-01-22] MEDS: Losartan 25 MG TAB PO SCH (08:38)
[2021-01-22] MEDS: Nystatin 500,000 UNITS/5 ML UDCUP SSW SCH ×4 (08:44→22:24)
[2021-01-22] MEDS: Morphine 4 MG/ML VIAL SLOW IVP PRN ×2 (12:08→21:28)
[2021-01-22] MEDS ORDERED: Calcium Carbonate 500 MG ChewTAB PO PRN (14:26)
[2021-01-22] MEDS: Atorvastatin Calcium 40 MG TAB PO SCH (21:27)
[2021-01-23] MEDS: Acetaminophen/Codeine 30-300mg Tablet PO PRN ×3 (00:29→17:37)
[2021-01-23] MEDS: Morphine 4 MG/ML VIAL SLOW IVP PRN ×3 (02:22→15:11)
[2021-01-23] MEDS: CEFAZOLIN 2 GM in Premix Bag 1 BAG IVPB SCH ×3 (05:16→21:01)
[2021-01-23] MEDS: Enoxaparin Sodium 40 MG/0.4 ML SYRINGE SC SCH (10:11)
[2021-01-23] MEDS: Aspirin 81 mg Enteric Coated Tablet PO SCH (10:11)
[2021-01-23] MEDS: Citalopram 20 MG TAB PO SCH (10:11)
[2021-01-23] MEDS: Docusate 100 MG CAP PO SCH ×2 (10:12→21:02)
[2021-01-23] MEDS: Gabapentin 300 MG CAP PO SCH ×3 (10:12→21:01)
[2021-01-23] MEDS: Losartan 25 MG TAB PO SCH (10:12)
[2021-01-23] MEDS: Nystatin 500,000 UNITS/5 ML UDCUP SSW SCH ×4 (10:13→21:01)
[2021-01-23] MEDS: Atorvastatin Calcium 40 MG TAB PO SCH (21:02)
[2021-01-24] MEDS: Acetaminophen/Codeine 30-300mg Tablet PO PRN ×5 (03:29→21:17)
[2021-01-24] MEDS: CEFAZOLIN 2 GM in Premix Bag 1 BAG IVPB SCH ×3 (05:30→21:20)
[2021-01-24] MEDS: Nystatin 500,000 UNITS/5 ML UDCUP SSW SCH ×4 (08:22→21:19)
[2021-01-24] MEDS: Aspirin 81 mg Enteric Coated Tablet PO SCH (08:22)
[2021-01-24] MEDS: Gabapentin 300 MG CAP PO SCH ×3 (08:23→21:19)
[2021-01-24] MEDS: Citalopram 20 MG TAB PO SCH (08:23)
[2021-01-24] MEDS: Losartan 25 MG TAB PO SCH (08:23)
[2021-01-24] MEDS: Docusate 100 MG CAP PO SCH ×2 (08:23→21:19)
[2021-01-24] MEDS: Enoxaparin Sodium 40 MG/0.4 ML SYRINGE SC SCH (08:23)
[2021-01-24] MEDS: ALPRAZolam 0.25 MG TAB PO PRN (21:18)
[2021-01-24] MEDS: Atorvastatin Calcium 40 MG TAB PO SCH (21:19)
[2021-01-25] MEDS: Acetaminophen/Codeine 30-300mg Tablet PO PRN ×5 (01:54→21:19)
[2021-01-25] MEDS ORDERED: Fentanyl 100 MCG/2 ML VIAL ONE ×2 (06:57→08:18)
[2021-01-25] MEDS: CEFAZOLIN 2 GM in Premix Bag 1 BAG IVPB SCH (07:18)
[2021-01-25] MEDS ORDERED: PROPOFOL 200 MG/20 ML VIAL ONE (07:26)
[2021-01-25] MEDS ORDERED: HYDROmorphone 2 MG/ML VIAL SLOW IVP PRN (07:41)
[2021-01-25] MEDS ORDERED: Ondansetron HCl/PF 4 MG/2 ML Vial IVP PRN (07:41)
[2021-01-25] MEDS ORDERED: HYDROmorphone 0.5 MG/0.5 ML SYRINGE ONE (08:36)
[2021-01-25] MEDS: ALPRAZolam 0.25 MG TAB PO PRN ×2 (09:16→22:57)
[2021-01-25] MEDS: Gabapentin 300 MG CAP PO SCH ×3 (09:17→21:19)
[2021-01-25] MEDS: Docusate 100 MG CAP PO SCH ×2 (12:07→21:20)
[2021-01-25] MEDS: Enoxaparin Sodium 40 MG/0.4 ML SYRINGE SC SCH (12:07)
[2021-01-25] MEDS: Aspirin 81 mg Enteric Coated Tablet PO SCH (12:07)
[2021-01-25] MEDS: Citalopram 20 MG TAB PO SCH (12:07)
[2021-01-25] MEDS: Losartan 25 MG TAB PO SCH (12:07)
[2021-01-25] MEDS: Nystatin 500,000 UNITS/5 ML UDCUP SSW SCH ×4 (12:08→21:19)
[2021-01-25] MEDS: Atorvastatin Calcium 40 MG TAB PO SCH (21:20)
[2021-01-26] MEDS: Acetaminophen/Codeine 30-300mg Tablet PO PRN ×3 (03:59→13:19)
[2021-01-26] MEDS ORDERED: Acetaminophen/Codeine 30-300mg Tablet PO PRN (08:17)
[2021-01-26] MEDS: Docusate 100 MG CAP PO SCH (08:31)
[2021-01-26] MEDS: Nystatin 500,000 UNITS/5 ML UDCUP SSW SCH (08:31)
[2021-01-26] MEDS: Citalopram 20 MG TAB PO SCH (08:31)
[2021-01-26] MEDS: Losartan 25 MG TAB PO SCH (08:31)
[2021-01-26] MEDS: Gabapentin 300 MG CAP PO SCH (08:32)
[2021-01-26] MEDS: Enoxaparin Sodium 40 MG/0.4 ML SYRINGE SC SCH (08:34)
[2021-01-26] MEDS: Aspirin 81 mg Enteric Coated Tablet PO SCH (08:35)
[2021-01-26 11:30] VITALS: BP 137/86; TEMP 98.5
== END 2021-01-26 13:49 | disposition home or self-care (01) | DRG 239 ==
LOC: ERS 14:41 → SURG A 17:06 → SJJU 01-02 13:09 → 2SE 01-03 17:45 → SJJU 01-09 18:09
PROVIDERS: ADMIT Thoracic Surgery (Cardiothoracic Vascular Surgery); ATTEND Thoracic Surgery (Cardiothoracic Vascular Surgery)
PROC: 0Y6D0Z1 Detachment at Left Upper Leg, High, Open Approach (ICD-10-PCS; principal; 2020-12-29)
PROC: 0Y6G0ZZ Detachment at Left Knee Region, Open Approach (ICD-10-PCS; 2021-01-09)
PROC: 06PY0JZ Removal of Synthetic Substitute from Lower Vein, Open Approach (ICD-10-PCS; 2021-01-09)
PROC: 0KBT0ZZ Excision of Left Lower Leg Muscle, Open Approach (ICD-10-PCS; 2021-01-15)
PROC: 2W0DX6Z Change Pressure Dressing on Left Lower Arm (ICD-10-PCS; 2021-01-17)
PROC: 2W0DX6Z Change Pressure Dressing on Left Lower Arm (ICD-10-PCS; 2021-01-21)
PROC: 2W0RX6Z Change Pressure Dressing on Left Lower Leg (ICD-10-PCS; 2021-01-25)
DX: I70.362 Atherosclerosis of unspecified type of bypass graft(s) of the extremities with gangrene, left leg (principal); J69.0 Pneumonitis due to inhalation of food and vomit; E44.1 Mild protein-calorie malnutrition; G81.94 Hemiplegia, unspecified affecting left nondominant side; E87.1 Hypo-osmolality and hyponatremia; G45.9 Transient cerebral ischemic attack, unspecified; E87.3 Alkalosis; T87.44 Infection of amputation stump, left lower extremity; I70.322 Atherosclerosis of unspecified type of bypass graft(s) of the extremities with rest pain, left leg; Z20.822 Contact with and (suspected) exposure to COVID-19; I10 Essential (primary) hypertension; F17.210 Nicotine dependence, cigarettes, uncomplicated; G62.9 Polyneuropathy, unspecified; F12.10 Cannabis abuse, uncomplicated; F10.10 Alcohol abuse, uncomplicated; R13.10 Dysphagia, unspecified; F32.9 Major depressive disorder, single episode, unspecified; F41.9 Anxiety disorder, unspecified; B37.9 Candidiasis, unspecified; R47.1 Dysarthria and anarthria; R29.810 Facial weakness; B95.4 Other streptococcus as the cause of diseases classified elsewhere; Y83.8 Other surgical procedures as the cause of abnormal reaction of the patient, or of later complication, without mention of misadventure at the time of the procedure; Z88.5 Allergy status to narcotic agent; Z79.82 Long term (current) use of aspirin; Z79.899 Other long term (current) drug therapy; Z68.20 Body mass index [BMI] 20.0-20.9, adult
CPT/HCPCS: 36415; 70450; 70496; 70498; 70551; 71045; 71046; 75635; 80053; 80061; 80202; 81001; 82533; 82550; 82607; 82746; 83036; 83935; 84145; 84300; 84443; 84540; 85025; 86780; 86803; 86850; 86900; 86901; 87040; 87070; 87076; 87077; 87086; 87205; 87389; 88307; 89060; 89220; 93306; 96374; 96375; 96376; A4306; J0690; J0744; J1100; J1170; J1650; J1885; J2001; J2060; J2250; J2270; J2405; J2543; J2550; J2704; J2795; J3010; J3370; J3490; J7070; Q9967; S0028; U0002

== ENCOUNTER 2021-01-30 08:43 | Outpatient (CLI) | payer SELFPAY ==
[2021-01-30 13:03] LABS: Hemoglobin 12.5 g/dL (13.5-17.5); Mean Corpuscular HGB CONC 32.5 g/dL (32.0-36.0); Mean Corpuscular Hemoglobin 32.3 pg (27.0-33.0); Mean Corpuscular Volume 99.5 fl (81.2-95.1); Mean Platelet Volume 10.2 fl (7.4-10.4); Platelet Count 441 10x3/uL (150-450); RBC Distribution Width 12.8 % (11.5-14.5); Red Blood Cell (RBC) Count 3.87 10x6/uL (4.32-5.72); White Blood Cell (WBC) Count 8.3 10x3/uL (3.5-10.5)
[2021-01-30 13:06] LABS: Anion Gap 17 mmol/L (10-20); BUN (Urea Nitrogen) 14 mg/dL (8.4-25.7); Calc. Creatinine Clearance 0 mL/min (70-130); Calcium 9.5 mg/dL (7.8-10.44); Carbon Dioxide 26 mmol/L (22-29); Chloride 101 mmol/L (98-107); Glucose 91 mg/dL (70-105); Potassium 4.5 mmol/L (3.5-5.1); Sodium 139 mmol/L (136-145)
[2021-01-31 06:29] LABS: SARS-CoV-2 PCR by NAA Not Detected (NotDetected)
== END 2021-01-30 08:44 | disposition home or self-care (01) ==
LOC: LABBT 08:43
PROVIDERS: ATTEND Thoracic Surgery (Cardiothoracic Vascular Surgery)
DX: Z01.818 Encounter for other preprocedural examination (principal); I73.9 Peripheral vascular disease, unspecified; Z20.822 Contact with and (suspected) exposure to COVID-19
CPT/HCPCS: 71046; 80048; 85027; 93005; 93010; U0003; U0005

== ENCOUNTER 2021-02-01 05:43 | Day surgery (SDC) | payer SELFPAY ==
[2021-01-31 10:04] VITALS: BMI 19.0
[2021-02-01] MEDS ORDERED: Fentanyl 100 MCG/2 ML VIAL ONE (06:54)
[2021-02-01] MEDS ORDERED: PROPOFOL 200 MG/20 ML VIAL ONE (07:34)
[2021-02-01] MEDS ORDERED: Lidocaine 1% PF 5 ML VIAL ONE (07:34)
[2021-02-01] MEDS ORDERED: Ondansetron PF 4 MG/2 ML Vial ONE (07:34)
[2021-02-01] MEDS ORDERED: Dexamethasone 20 MG/5 ML VIAL ONE (07:34)
[2021-02-01] MEDS ORDERED: ePHEDrine Sulfate 50 MG/10 ML VIAL ONE (07:34)
[2021-02-01] MEDS ORDERED: PHENYLEPHRINE-NS 100 MCG/ML 10 ML SYRINGE ONE (07:34)
== END 2021-02-01 09:20 | disposition home or self-care (01) ==
LOC: SDC 05:43
PROVIDERS: ATTEND Thoracic Surgery (Cardiothoracic Vascular Surgery)
PROC: 2W0PX6Z Change Pressure Dressing on Left Upper Leg (ICD-10-PCS; principal; 2021-02-01)
DX: T87.89 Other complications of amputation stump (principal); T87.44 Infection of amputation stump, left lower extremity; I73.9 Peripheral vascular disease, unspecified; Z79.82 Long term (current) use of aspirin; Z79.899 Other long term (current) drug therapy; Z88.6 Allergy status to analgesic agent
CPT/HCPCS: J1100; J2405; J2704; J3010

== ENCOUNTER 2021-02-07 05:39 | Day surgery (SDC) | payer SELFPAY ==
[2021-02-06 09:18] VITALS: BMI 19.0
[2021-02-07] MEDS ORDERED: Midazolam HCl 2 mg/2 ml Vial ONE (06:48)
[2021-02-07] MEDS ORDERED: Fentanyl 100 MCG/2 ML VIAL ONE (06:48)
[2021-02-07 06:53] LABS: SARS-CoV-2 NAA Rapid Test Not Detected (NotDetected)
[2021-02-07] MEDS ORDERED: Ondansetron PF 4 MG/2 ML Vial ONE (07:45)
[2021-02-07] MEDS ORDERED: PROPOFOL 200 MG/20 ML VIAL ONE (07:45)
[2021-02-07] MEDS ORDERED: HYDROcodone/Acetaminophen 5/325 mg Tablet ONE (09:15)
== END 2021-02-07 09:28 | disposition home or self-care (01) ==
LOC: SDC 05:39
PROVIDERS: ATTEND Thoracic Surgery (Cardiothoracic Vascular Surgery)
PROC: 2W0PX6Z Change Pressure Dressing on Left Upper Leg (ICD-10-PCS; principal; 2021-02-07)
DX: T87.89 Other complications of amputation stump (principal); T87.44 Infection of amputation stump, left lower extremity; I73.9 Peripheral vascular disease, unspecified; Z79.82 Long term (current) use of aspirin; Z79.899 Other long term (current) drug therapy; Z88.6 Allergy status to analgesic agent
CPT/HCPCS: J2250; J2405; J2704; J3010; U0002; U0005

== ENCOUNTER 2021-02-13 05:52 | Day surgery (SDC) | payer SELFPAY ==
[2021-02-12 11:59] VITALS: BMI 19.0
[2021-02-13] MEDS ORDERED: Fentanyl 100 MCG/2 ML VIAL ONE (07:05)
[2021-02-13] MEDS ORDERED: Midazolam HCl 2 mg/2 ml Vial ONE (07:05)
[2021-02-13 07:09] LABS: SARS-CoV-2 NAA Rapid Test Not Detected (NotDetected)
[2021-02-13] MEDS ORDERED: Lidocaine 1% PF 5 ML VIAL ONE (07:09)
[2021-02-13] MEDS ORDERED: PROPOFOL 200 MG/20 ML VIAL ONE (07:09)
[2021-02-13] MEDS ORDERED: Ondansetron PF 4 MG/2 ML Vial ONE (07:09)
[2021-02-13] MEDS ORDERED: Maxitrol 0.1% Opth Oint 3.5 GM TUBE ONE (07:17)
[2021-02-13] MEDS ORDERED: Bacitracin Zinc Ointment 30 gm TUBE ONE (07:18)
== END 2021-02-13 08:45 | disposition home or self-care (01) ==
LOC: SDC 05:52
PROVIDERS: ATTEND Thoracic Surgery (Cardiothoracic Vascular Surgery)
PROC: 2W0PX6Z Change Pressure Dressing on Left Upper Leg (ICD-10-PCS; principal; 2021-02-13)
DX: T87.89 Other complications of amputation stump (principal); T87.44 Infection of amputation stump, left lower extremity; I73.9 Peripheral vascular disease, unspecified; Z79.82 Long term (current) use of aspirin; Z79.899 Other long term (current) drug therapy; Z88.6 Allergy status to analgesic agent
CPT/HCPCS: J2250; J2405; J2704; J3010; U0002; U0005

== ENCOUNTER 2021-02-15 11:53 | Day surgery (SDC) | payer SELFPAY ==
[2021-02-14 11:18] VITALS: BMI 19.0
[2021-02-15] MEDS ORDERED: EPINEPHrine 1 MG/ML AMP ONE ×2 (13:56→14:07)
[2021-02-15] MEDS ORDERED: Bupivacaine 0.25% HCL 30 ML VIAL ONE ×2 (13:56→14:07)
[2021-02-15] MEDS ORDERED: Fentanyl 100 MCG/2 ML VIAL ONE ×3 (14:03→15:52)
[2021-02-15] MEDS ORDERED: Mineral Oil Sterile 10ML 10 ML UDCUP ONE (14:07)
[2021-02-15] MEDS ORDERED: Ondansetron PF 4 MG/2 ML Vial ONE (14:25)
[2021-02-15] MEDS ORDERED: Lidocaine 1% PF 5 ML VIAL ONE (14:25)
[2021-02-15] MEDS ORDERED: Dexamethasone 20 MG/5 ML VIAL ONE (14:25)
[2021-02-15] MEDS ORDERED: PHENYLEPHRINE-NS 100 MCG/ML 10 ML SYRINGE ONE (14:25)
[2021-02-15] MEDS ORDERED: ePHEDrine Sulfate 50 MG/10 ML VIAL ONE (14:25)
[2021-02-15] MEDS ORDERED: PROPOFOL 200 MG/20 ML VIAL ONE (14:25)
[2021-02-15] MEDS ORDERED: Meperidine HCl/PF 25 MG/ML VIAL ONE (15:52)
== END 2021-02-15 17:38 | disposition home or self-care (01) ==
LOC: SDC 11:53
PROVIDERS: ATTEND Plastic Surgery
DX: T87.89 Other complications of amputation stump (principal); T87.44 Infection of amputation stump, left lower extremity; I73.9 Peripheral vascular disease, unspecified; Z79.82 Long term (current) use of aspirin; Z79.899 Other long term (current) drug therapy; Z88.6 Allergy status to analgesic agent
CPT/HCPCS: J0171; J0690; J1100; J2175; J2405; J2704; J3010; S0020

== ENCOUNTER 2021-12-16 11:35 | Observation (INO) | payer SELFPAY ==
[2021-12-16 12:40] LABS: #Eosinphils 0.1 thou/uL (0.0-0.7); #Monocytes 0.4 thou/uL (0.11-0.59); #Neutrophils 3.4 thou/uL (1.40-6.50); %Basophils 0.2 % (0.0-1.0); %Eosinophils 1.2 % (0.0-10.0); %Lymphocytes 20.3 % (21.0-51.0); %Monocytes 7.4 % (0.0-10.0); %Neutrophils 70.9 % (42.0-75.0); Hemoglobin 19.2 g/dL (14.0-18.0); Mean Corpuscular HGB CONC 31.7 g/dL (32.0-36.0); Mean Corpuscular Hemoglobin 30.4 pg (27.0-31.0); Mean Corpuscular Volume 96.1 fL (78.0-98.0); Mean Platelet Volume 7.9 fL (7.4-10.4); Platelet Count 141 thou/uL (130-400); RBC Distribution Width 15.3 % (11.5-14.5); Red Blood Cell (RBC) Count 6.29 mill/uL (4.70-6.10); White Blood Cell (WBC) Count 4.7 thou/uL (4.8-10.8)
[2021-12-16 12:52] LABS: ALT (SGPT) 9 U/L (8-55); AST (SGOT) 11 U/L (5-34); Albumin 3.8 g/dL (3.5-5.0); Alkaline Phosphatase 102 U/L (40-110); Anion Gap 11 mmol/L (10-20); BUN (Urea Nitrogen) 5 mg/dL (8.4-25.7); Calc. Creatinine Clearance 0 mL/min (70-130); Calcium 9.1 mg/dL (7.8-10.44); Carbon Dioxide 26 mmol/L (22-29); Chloride 105 mmol/L (98-107); Globulin 2.9 g/dL (2.4-3.5); Glucose 165 mg/dL (70-105); Protein, Total 6.7 g/dL (6.0-8.3); Sodium 138 mmol/L (136-145)
[2021-12-16] MEDS ORDERED: Aspirin Chewable 81 MG TAB ONE (15:05)
[2021-12-16 16:16] LABS: Prothrombin Time 13.6 sec (12.0-14.7)
[2021-12-16 16:17] LABS: PTT 32.7 sec (22.9-36.1)
[2021-12-16] MEDS ORDERED: Sodium Chloride 0.9% 1,000 ML IV SCH (17:00)
[2021-12-16 17:33] LABS: Troponin I Less than 0.010 ng/mL (< 0.028)
[2021-12-16 17:58] VITALS: BMI 18.8
[2021-12-16] MEDS ORDERED: Acetaminophen 325 MG TAB PO PRN (18:03)
[2021-12-16] MEDS ORDERED: Ondansetron PF 4 MG/2 ML Vial IVP PRN (18:03)
[2021-12-16] MEDS ORDERED: Bisacodyl 10 MG SUPP PR PRN (18:03)
[2021-12-16] MEDS ORDERED: Bisacodyl 5 MG TAB PO PRN (18:03)
[2021-12-16] MEDS: Sodium Chloride 0.9% 1,000 ML IV SCH (18:07)
[2021-12-16] MEDS ORDERED: Lorazepam 2 MG/ML VIAL IM PRN (18:08)
[2021-12-16] MEDS ORDERED: Ondansetron ODT 4 MG TAB PO PRN (18:08)
[2021-12-16] MEDS ORDERED: Lorazepam 1 MG TAB PO PRN (18:08)
[2021-12-16] MEDS ORDERED: Melatonin 3 MG TAB PO PRN (18:12)
[2021-12-16] MEDS ORDERED: Thiamine HCl 200 MG/2 ML VIAL SLOW IVP SCH (18:15)
[2021-12-16] MEDS ORDERED: Electrolyte Replacement Protocol 1 EACH FS SCH (18:15)
[2021-12-16] MEDS ORDERED: Electrolyte Replacement Protocol FS PRN (18:30)
[2021-12-16 20:29] LABS: Magnesium 1.6 mg/dL (1.6-2.6)
[2021-12-16 20:34] LABS: Troponin I Less than 0.010 ng/mL (< 0.028)
[2021-12-16] MEDS ORDERED: Magnesium 2 GM/50 ML(in water) 2 GM in Premix Bag 1 BAG IVPB SCH (21:15)
[2021-12-16 21:32] LABS: Amphetamine Not Detected (NotDetected); Barbiturates Screen Not Detected (NotDetected); Benzodiazepine Screen Not Detected (NotDetected); Cocaine Metabolite Screen Not Detected (NotDetected); Methadone Not Detected (NotDetected); Methamphetamine Not Detected (NotDetected); Opiate Screen Not Detected (NotDetected); Oxycodone Screen Not Detected (NotDetected); Phencyclidine (PCP) Not Detected (NotDetected); THC/Cannabinoid Screen Detected (NotDetected); Tricyclic Screen Not Detected (NotDetected)
[2021-12-16] MEDS: Lorazepam 1 MG TAB PO SCH (21:56)
[2021-12-17] MEDS: Lorazepam 1 MG TAB PO SCH ×2 (01:45→06:10)
[2021-12-17] MEDS: Sodium Chloride 0.9% 1,000 ML IV SCH ×2 (02:46→09:00)
[2021-12-17 05:42] LABS: #Eosinphils 0.1 thou/uL (0.0-0.7); #Lymphocytes 1.5 thou/uL (1.20-3.40); #Monocytes 0.5 thou/uL (0.11-0.59); #Neutrophils 4.1 thou/uL (1.40-6.50); %Basophils 0.6 % (0.0-1.0); %Eosinophils 1.2 % (0.0-10.0); %Lymphocytes 24.1 % (21.0-51.0); %Monocytes 8.1 % (0.0-10.0); Hemoglobin 17.8 g/dL (14.0-18.0); Mean Corpuscular HGB CONC 31.4 g/dL (32.0-36.0); Mean Corpuscular Hemoglobin 30.4 pg (27.0-31.0); Mean Corpuscular Volume 96.8 fL (78.0-98.0); Mean Platelet Volume 8.3 fL (7.4-10.4); Platelet Count 134 thou/uL (130-400); Red Blood Cell (RBC) Count 5.85 mill/uL (4.70-6.10); White Blood Cell (WBC) Count 6.2 thou/uL (4.8-10.8)
[2021-12-17 05:49] LABS: Reticulocyte Count 0.5 % (0.5-1.5)
[2021-12-17 06:00] LABS: ALT (SGPT) 10 U/L (8-55); AST (SGOT) 15 U/L (5-34); Alkaline Phosphatase 86 U/L (40-110); Anion Gap 13 mmol/L (10-20); BUN (Urea Nitrogen) 6 mg/dL (8.4-25.7); Bilirubin, Total 0.6 mg/dL (0.2-1.2); Calc. Creatinine Clearance 124 mL/min (70-130); Calcium 8.3 mg/dL (7.8-10.44); Carbon Dioxide 17 mmol/L (22-29); Cardiac Risk 3.1 (Less than 4.5); Chloride 111 mmol/L (98-107); Cholesterol 106 mg/dl (< 200 Desired); Globulin 2.8 g/dL (2.4-3.5); Glucose 130 mg/dL (70-105); HDL Cholesterol 34 mg/dL (>60 Neg Risk); LDL Cholesterol, Calculated 60 mg/dL; Protein, Total 5.8 g/dL (6.0-8.3); Sodium 137 mmol/L (136-145); Triglycerides 59 mg/dL (Less than 150)
[2021-12-17 06:13] LABS: Hemoglobin A1c 5.1 % (4.0-6.0)
[2021-12-17] MEDS ORDERED: Folic Acid 1 MG TAB PO SCH (09:00)
[2021-12-17] MEDS ORDERED: Losartan 25 MG TAB PO SCH (09:00)
[2021-12-17] MEDS ORDERED: Aspirin 81 mg Enteric Coated Tablet PO SCH (09:00)
[2021-12-17] MEDS ORDERED: Multivit, Therapeutic 1 TAB PO SCH (09:00)
[2021-12-17 11:03] LABS: Syphilis Antibody Nonreactive (Nonreactive); Syphilis Antibody Index 0.04 S/CO (<1.00 Non-Reactive)
[2021-12-17 11:41] VITALS: BP 135/72; TEMP 98
[2021-12-17] MEDS ORDERED: Lorazepam 1 MG TAB PO PRN (18:08)
[2021-12-18] MEDS ORDERED: Lorazepam 1 MG TAB PO PRN (18:08)
[2021-12-18] MEDS ORDERED: Lorazepam 0.5 MG TAB PO SCH (18:15)
[2021-12-19] MEDS ORDERED: Thiamine 100 MG TAB PO SCH (18:00)
[2021-12-19] MEDS ORDERED: Lorazepam 0.5 MG TAB PO PRN (18:08)
== END 2021-12-17 11:58 | disposition home or self-care (01) ==
LOC: ERS 11:35 → NEURO 15:57
PROVIDERS: ADMIT Internal Medicine; ATTEND Internal Medicine
DX: R27.0 Ataxia, unspecified (principal); R13.10 Dysphagia, unspecified; R49.1 Aphonia; M79.602 Pain in left arm; I74.5 Embolism and thrombosis of iliac artery; F17.210 Nicotine dependence, cigarettes, uncomplicated; I10 Essential (primary) hypertension; F10.10 Alcohol abuse, uncomplicated; G62.9 Polyneuropathy, unspecified; F14.11 Cocaine abuse, in remission; F15.11 Other stimulant abuse, in remission; D75.1 Secondary polycythemia; R73.9 Hyperglycemia, unspecified; F12.10 Cannabis abuse, uncomplicated; Q23.1 Congenital insufficiency of aortic valve; I08.1 Rheumatic disorders of both mitral and tricuspid valves; Z86.718 Personal history of other venous thrombosis and embolism; Z79.82 Long term (current) use of aspirin; Z79.899 Other long term (current) drug therapy; Z88.8 Allergy status to other drugs, medicaments and biological substances; Z89.612 Acquired absence of left leg above knee
CPT/HCPCS: 36415; 70450; 71045; 71275; 74174; 80053; 80061; 80306; 83036; 83615; 83735; 84484; 85025; 85046; 85610; 85730; 86780; 93005; 93306; 96374; 96375; G0378; J3411; J3475; J7050; Q9967

== ENCOUNTER 2023-07-02 10:13 | Outpatient (CLI) | payer MEDICARE | END 2023-07-02 10:14 | disposition home or self-care (01) | PROVIDERS: ATTEND Nurse Practitioner Family | DX: Z47.81 Encounter for orthopedic aftercare following surgical amputation (principal); M19.011 Primary osteoarthritis, right shoulder; M19.012 Primary osteoarthritis, left shoulder; Z89.512 Acquired absence of left leg below knee ==